=== PATIENT | male | born 1940 | race Caucasian/White ===

== ENCOUNTER 2017-05-20 13:03 | Inpatient (IN) | payer MEDICARE ==
[~2017-05-20] VITALS: Ht 172.7 cm; Wt 74.5 kg
[2017-05-20 13:48] LABS: BASOPHILS % (AUTO) 0.4 % (0.0-2.0); EOSINOPHILS % (AUTO) 4.4 % (1.0-6.0); HEMATOCRIT 36.6 % (41-53); HEMOGLOBIN 12.2 g/dL (13.5-17.5); LYMPHOCYTES # (AUTO) 1.2 K/uL (1.0-4.8); LYMPHOCYTES % (AUTO) 14.9 % (22.0-44.0); MEAN CORPUSCULAR HGB CONC 33.3 G/dL (31.0-37.0); MEAN CORPUSCULAR VOLUME 90 fL (80-100); MONOCYTES # (AUTO) 0.4 K/uL (0.1-1.0); MONOCYTES % (AUTO) 5.6 % (2.0-9.0); NEUTROPHILS # (AUTO) 5.8 K/uL (1.8-7.7); NEUTROPHILS % (AUTO) 74.7 % (40.0-70.0); PLATELET COUNT (AUTO) 157 K/uL (150-450); RED BLOOD CELL COUNT(AUTO) 4.06 MIL/uL (4.50-5.90); RED CELL DISTRIBUTION WIDTH 14.2 % (11.5-14.5)
[2017-05-20] MEDS ORDERED: CARB1TAB35 PO (13:49)
[2017-05-20] MEDS ORDERED: ASPI-989 PO (13:49)
[2017-05-20] MEDS ORDERED: CLOP75 PO (13:49)
[2017-05-20] MEDS ORDERED: TERA2 PO (13:49)
[2017-05-20] MEDS ORDERED: METF500T7 PO (13:49)
[2017-05-20] MEDS ORDERED: LISI-660 PO (13:49)
[2017-05-20] MEDS ORDERED: FINA5TAB41 PO (13:49)
[2017-05-20] MEDS ORDERED: FAMO20 PO (13:49)
[2017-05-20] MEDS ORDERED: THYR30 PO (13:49)
[2017-05-20] MEDS ORDERED: FLUT16H NASAL (13:49)
[2017-05-20] MEDS ORDERED: LATA2.5D2 OU (13:49)
[2017-05-20] MEDS ORDERED: ESOM20CA31 PO (13:49)
[2017-05-20] MEDS ORDERED: ATOR10TA84 PO (13:49)
[2017-05-20] MEDS ORDERED: DIPH50 PO (13:49)
[2017-05-20] MEDS ORDERED: OMEG-12 PO (13:49)
[2017-05-20] MEDS ORDERED: UBID100C10 PO (13:49)
[2017-05-20] MEDS ORDERED: CETI-193 PO (13:49)
[2017-05-20] MEDS ORDERED: CALC-789 PO (13:49)
[2017-05-20 14:03] LABS: ANION GAP 9 mmol/L (8-16); CALCIUM, TOTAL 8.9 mg/dL (8.8-10.5); CARBON DIOXIDE 27 mmol/L (22-29); CHLORIDE 102 mmol/L (98-107); CREATININE 1.14 mg/dL (0.60-1.30); GLOMERULAR FILTR. RATE CALC > 60 mL/min (>60); GLUCOSE,RANDOM 138 mg/dL (70-110); INR 1.1 (0.9-1.1); POTASSIUM 4.1 mmol/L (3.5-5.1); PROTHROMBIN TIME 11.7 SEC (9.4-11.6); SODIUM SERUM 138 mmol/L (136-145); UREA NITROGEN, BLOOD 17 mg/dL (7-18)
[2017-05-20 14:13] LABS: ALANINE AMINOTRANSFERASE 19 U/L (12-78); ALBUMIN 3.7 g/dL (3.4-5.0); ALKALINE PHOSPHATASE 52 U/L (46-116); ASPARTATE AMINOTRANSFERASE 15 U/L (15-37); BILIRUBIN,TOTAL 0.5 mg/dL (0.1-1.0); CREATINE KINASE, TOTAL 56 U/L (39-308); TOTAL PROTEIN, SERUM 6.7 g/dL (6.4-8.2)
[2017-05-20 14:30] LABS: APPEARANCE,URINE CLEAR (CLEAR); BILIRUBIN,URINE NEGATIVE (NEGATIVE); GLUCOSE, URINE (UA) NEGATIVE (NEGATIVE); KETONES,URINE NEGATIVE (NEGATIVE); LEUKOCYTE ESTERASE ,URINE NEGATIVE (NEGATIVE); NITRATE,URINE NEGATIVE (NEGATIVE); OCCULT BLOOD,URINE NEGATIVE (NEGATIVE); PH,URINE 6.5 (5.0-8.0); PROTEIN,URINE NEGATIVE (NEGATIVE); UROBILINOGEN,URINE 0.2 mg/dL (<=1.0)
[2017-05-20] MEDS ORDERED: ONDANSETRON HCL 4 MG/2 ML VIAL IVP PRN (15:15)
[2017-05-20] MEDS ORDERED: ACETAMINOPHEN 325 MG TABLET PO PRN (15:15)
[2017-05-20] MEDS ORDERED: 0.9% SODIUM CHLORIDE 10 ML SYRINGE IVP PRN (15:15)
[2017-05-20 16:27] VITALS: BP 174/95
[2017-05-20 18:54] VITALS: BP 145/80
[2017-05-20 20:14] VITALS: BP 147/75
[2017-05-20] MEDS ORDERED: ASPIRIN 325 MG TABLET PO ONE (20:30)
[2017-05-20 21:13] LABS: GLUCOSE,POINT OF CARE 126 MG/DL (70-110)
[2017-05-20 22:25] VITALS: BP 142/75
[2017-05-21] VITALS (7 sets, daily range): BP systolic 138–190; BP diastolic 73–95
[2017-05-21 05:39] LABS: BASOPHILS % (AUTO) 0.6 % (0.0-2.0); EOSINOPHILS % (AUTO) 4.8 % (1.0-6.0); HEMATOCRIT 35.2 % (41-53); HEMOGLOBIN 11.7 g/dL (13.5-17.5); LYMPHOCYTES % (AUTO) 23.7 % (22.0-44.0); MEAN CORPUSCULAR HEMOGLOBIN 30.3 pg (26.0-34.0); MEAN CORPUSCULAR HGB CONC 33.4 G/dL (31.0-37.0); MEAN CORPUSCULAR VOLUME 91 fL (80-100); MONOCYTES # (AUTO) 0.8 K/uL (0.1-1.0); MONOCYTES % (AUTO) 9.4 % (2.0-9.0); NEUTROPHILS # (AUTO) 5.2 K/uL (1.8-7.7); NEUTROPHILS % (AUTO) 61.5 % (40.0-70.0); PLATELET COUNT (AUTO) 156 K/uL (150-450); RED BLOOD CELL COUNT(AUTO) 3.87 MIL/uL (4.50-5.90); RED CELL DISTRIBUTION WIDTH 13.8 % (11.5-14.5)
[2017-05-21 05:45] LABS: HEMOGLOBIN A1C 6.6 % (4.5-6.2)
[2017-05-21 06:09] LABS: ALANINE AMINOTRANSFERASE 22 U/L (12-78); ALBUMIN 3.7 g/dL (3.4-5.0); ALKALINE PHOSPHATASE 50 U/L (46-116); ANION GAP 5 mmol/L (8-16); ASPARTATE AMINOTRANSFERASE 15 U/L (15-37); BILIRUBIN,TOTAL 0.5 mg/dL (0.1-1.0); CALCIUM, TOTAL 8.7 mg/dL (8.8-10.5); CARBON DIOXIDE 30 mmol/L (22-29); CHLORIDE 104 mmol/L (98-107); CHOL/HDL RATIO 2.5 (4.2-7.3); CHOLESTEROL 101 mg/dL (131-200); CREATININE 1.04 mg/dL (0.60-1.30); GLOMERULAR FILTR. RATE CALC > 60 mL/min (>60); GLUCOSE,RANDOM 104 mg/dL (70-110); HDL CHOLESTEROL 41 mg/dL (40-60); LDL CHOL (CALC.) 48 mg/dL (0-130); POTASSIUM 3.6 mmol/L (3.5-5.1); SODIUM SERUM 139 mmol/L (136-145); THYROID STIMULATING HORMONE 0.68 uIU/mL (0.36-3.74); TOTAL PROTEIN, SERUM 6.8 g/dL (6.4-8.2); TRIGLYCERIDES 61 mg/dL (15-150); UREA NITROGEN, BLOOD 18 mg/dL (7-18)
[2017-05-21 06:43] LABS: GLUCOSE,POINT OF CARE 110 MG/DL (70-110)
[2017-05-21] MEDS: ASPIRIN 325 MG TABLET PO SCH (10:18)
[2017-05-21] MEDS: CLOPIDOGREL BISULFATE 75 MG TABLET PO SCH (10:18)
[2017-05-21 11:48] LABS: GLUCOSE,POINT OF CARE 135 MG/DL (70-110)
[2017-05-21 13:07] LABS: FOLATE SERUM 10.8 ng/mL (5.4-)
[2017-05-21 17:28] LABS: GLUCOSE,POINT OF CARE 107 MG/DL (70-110)
[2017-05-21] MEDS ORDERED: HydrALAZINE HCL 20 MG/ML VIAL IVP PRN (22:30)
[2017-05-21] MEDS ORDERED: DEXTROSE 50%-WATER 25 GM/50 ML SYRINGE IVP PRN (22:30)
[2017-05-21] MEDS ORDERED: ACETAMINOPHEN 325 MG TABLET PO PRN (22:30)
[2017-05-21] MEDS ORDERED: LISINOPRIL 5 MG TABLET PO ONE (22:30)
[2017-05-21] MEDS ORDERED: INSULIN ASPART 100 UNITS/ML SQ PRN (23:15)
[2017-05-21] MEDS: ATORVASTATIN CALCIUM 10 MG TABLET PO SCH (23:59)
[2017-05-22] VITALS (7 sets, daily range): BP systolic 98–159; BP diastolic 51–87
[2017-05-22] MEDS: TERAZOSIN HCL 2 MG CAPSULE PO SCH ×2 (00:45→21:39)
[2017-05-22] MEDS: CARBIDOPA/LEVODOPA 25-100 MG TABLET PO SCH ×6 (00:45→21:39)
[2017-05-22] MEDS: LATANOPROST 0.005% 2.5 ML OPHTHALMIC SOLUTION OU SCH ×2 (00:46→21:40)
[2017-05-22] MEDS: THYROID 30 MG TABLET PO SCH (05:59)
[2017-05-22] MEDS: LISINOPRIL 5 MG TABLET PO SCH (09:26)
[2017-05-22] MEDS: ASPIRIN 325 MG TABLET PO SCH (09:26)
[2017-05-22] MEDS: CLOPIDOGREL BISULFATE 75 MG TABLET PO SCH (09:26)
[2017-05-22] MEDS: ESOMEPRAZOLE MAG TRIHYDRATE 20 MG CAPSULE PO SCH (09:27)
[2017-05-22] MEDS: UBIDECARENONE 100 MG CAPSULE PO SCH ×2 (09:27→21:39)
[2017-05-22] MEDS: ATORVASTATIN CALCIUM 10 MG TABLET PO SCH (21:39)
[2017-05-23 00:58] LABS: GLUCOMETER DEV NAME(LOC) 5S 2N; GLUCOSE,POINT OF CARE 122 MG/DL (70-110)
[2017-05-23 00:58] LABS: GLUCOMETER DEV NAME(LOC) 5S 2N; GLUCOSE,POINT OF CARE 149 MG/DL (70-110)
[2017-05-23 00:58] LABS: GLUCOMETER DEV NAME(LOC) 5S 2N; GLUCOSE,POINT OF CARE 156 MG/DL (70-110)
[2017-05-23] MEDS: CARBIDOPA/LEVODOPA 25-100 MG TABLET PO SCH ×4 (04:45→12:06)
[2017-05-23 04:58] VITALS: BP 154/70
[2017-05-23] MEDS: THYROID 30 MG TABLET PO SCH (06:22)
[2017-05-23 07:34] VITALS: BP 140/84
[2017-05-23] MEDS: LISINOPRIL 5 MG TABLET PO SCH (08:53)
[2017-05-23] MEDS: ESOMEPRAZOLE MAG TRIHYDRATE 20 MG CAPSULE PO SCH (08:53)
[2017-05-23] MEDS: CLOPIDOGREL BISULFATE 75 MG TABLET PO SCH (08:53)
[2017-05-23] MEDS: ASPIRIN 325 MG TABLET PO SCH (08:54)
[2017-05-23] MEDS: UBIDECARENONE 100 MG CAPSULE PO SCH (08:54)
[2017-05-23 11:18] VITALS: BP 146/88
[2017-05-23 12:34] LABS: GLUCOMETER DEV NAME(LOC) 5S 2N; GLUCOSE,POINT OF CARE 123 MG/DL (70-110)
[2017-05-24 05:53] LABS: GLUCOMETER DEV NAME(LOC) 5S 1L; GLUCOSE,POINT OF CARE 168 MG/DL (70-110)
[2017-05-24 05:54] LABS: GLUCOMETER DEV NAME(LOC) 5S 1L; GLUCOSE,POINT OF CARE 130 MG/DL (70-110)
[2017-05-24 05:54] LABS: GLUCOMETER DEV NAME(LOC) 5S 1L; GLUCOSE,POINT OF CARE 135 MG/DL (70-110)
== END 2017-05-23 14:45 | disposition home or self-care (01) | DRG 69 ==
LOC: EMS 13:05 → AHU 16:14 → 5N 05-21 19:27
PROVIDERS: ADMIT Internal Medicine; ATTEND Internal Medicine
DX: G45.9 Transient cerebral ischemic attack, unspecified (principal); G20 Parkinson's disease; E11.9 Type 2 diabetes mellitus without complications; R47.01 Aphasia; E03.9 Hypothyroidism, unspecified; E78.5 Hyperlipidemia, unspecified; I10 Essential (primary) hypertension; R47.1 Dysarthria and anarthria; N40.0 Benign prostatic hyperplasia without lower urinary tract symptoms; G25.0 Essential tremor; Z86.73 Personal history of transient ischemic attack (TIA), and cerebral infarction without residual deficits; Z82.49 Family history of ischemic heart disease and other diseases of the circulatory system; Z83.3 Family history of diabetes mellitus; Z79.84 Long term (current) use of oral hypoglycemic drugs
CPT/HCPCS: 70450; 70496; 70551; 82607; 82746; 82962; 83036; 84443; 93005; 93880; 95816; 99291; J0360

== ENCOUNTER 2017-07-10 14:13 | Emergency (ER) | payer MEDICARE ==
[~2017-07-10] VITALS: Ht 170.2 cm; Wt 75.0 kg
[~2017-07-10 14:13] MED LIST: ASPI-989 PO; ATOR10TA84 PO; CALC-789 PO; CARB1TAB35 PO; CETI-193 PO; CLOP75 PO; DIPH50 PO; ESOM20CA31 PO; FAMO20 PO; FINA5TAB41 PO; FLUT16H NASAL; LATA2.5D2 OU; LISI-660 PO; METF500T7 PO; OMEG-12 PO; TERA2 PO; THYR30 PO; UBID100C10 PO
[2017-07-10] MEDS ORDERED: ASPI1CPM6 PO (14:40)
[2017-07-10] MEDS ORDERED: THYR30 PO (14:40)
[2017-07-10 14:42] LABS: GLUCOSE,POINT OF CARE 103 MG/DL (70-110)
[2017-07-10 16:19] LABS: BASOPHILS % (AUTO) 0.7 % (0.0-2.0); EOSINOPHILS % (AUTO) 3.5 % (1.0-6.0); HEMOGLOBIN 11.9 g/dL (13.5-17.5); LYMPHOCYTES # (AUTO) 1.4 K/uL (1.0-4.8); LYMPHOCYTES % (AUTO) 19.4 % (22.0-44.0); MEAN CORPUSCULAR HEMOGLOBIN 29.8 pg (26.0-34.0); MEAN CORPUSCULAR HGB CONC 33.1 G/dL (31.0-37.0); MEAN CORPUSCULAR VOLUME 90 fL (80-100); MONOCYTES # (AUTO) 0.6 K/uL (0.1-1.0); MONOCYTES % (AUTO) 8.6 % (2.0-9.0); NEUTROPHILS # (AUTO) 4.9 K/uL (1.8-7.7); NEUTROPHILS % (AUTO) 67.8 % (40.0-70.0); PLATELET COUNT (AUTO) 149 K/uL (150-450); RED BLOOD CELL COUNT(AUTO) 3.99 MIL/uL (4.50-5.90); RED CELL DISTRIBUTION WIDTH 13.8 % (11.5-14.5)
[2017-07-10 16:30] LABS: ANION GAP 8 mmol/L (8-16); CARBON DIOXIDE 30 mmol/L (22-29); CHLORIDE 102 mmol/L (98-107); CREATININE 0.89 mg/dL (0.60-1.30); GLOMERULAR FILTR. RATE CALC > 60 mL/min (>60); GLUCOSE,RANDOM 108 mg/dL (70-110); POTASSIUM 4.3 mmol/L (3.5-5.1); SODIUM SERUM 140 mmol/L (136-145); UREA NITROGEN, BLOOD 21 mg/dL (7-18)
[2017-07-10 16:37] LABS: PROTHROMBIN TIME 10.7 SEC (9.4-11.6)
[2017-07-10 16:41] LABS: APPEARANCE,URINE CLEAR (CLEAR); BILIRUBIN,URINE NEGATIVE (NEGATIVE); GLUCOSE, URINE (UA) NEGATIVE (NEGATIVE); KETONES,URINE NEGATIVE (NEGATIVE); LEUKOCYTE ESTERASE ,URINE NEGATIVE (NEGATIVE); NITRATE,URINE NEGATIVE (NEGATIVE); OCCULT BLOOD,URINE NEGATIVE (NEGATIVE); PROTEIN,URINE NEGATIVE (NEGATIVE)
[2017-07-10 16:44] VITALS: BP 161/88
[2017-07-10 16:46] LABS: AMPHET/METH SCREEN,URINE NEGATIVE (NEGATIVE); BARBITURATE SCREEN, URINE NEGATIVE (NEGATIVE); BENZODIAZEPINES SCREEN,URINE NEGATIVE (NEGATIVE); CANNABINOID SCREEN,URINE NEGATIVE (NEGATIVE); COCAINE SCREEN,URINE NEGATIVE (NEGATIVE); METHADONE SCREEN, URINE NEGATIVE (NEGATIVE); OPIATE SCREEN,URINE NEGATIVE (NEGATIVE)
[2017-07-10 16:47] LABS: PHENCYCLIDINE SCREEN,URINE NEGATIVE (NEGATIVE)
[2017-07-10 16:56] LABS: ALANINE AMINOTRANSFERASE 22 U/L (12-78); ALBUMIN 3.9 g/dL (3.4-5.0); ALKALINE PHOSPHATASE 52 U/L (46-116); ASPARTATE AMINOTRANSFERASE 19 U/L (15-37); BILIRUBIN,TOTAL 0.4 mg/dL (0.1-1.0); CREATINE KINASE MB 1.1 ng/mL (0-5); CREATINE KINASE, TOTAL 77 U/L (39-308); TOTAL PROTEIN, SERUM 7.1 g/dL (6.4-8.2)
== END 2017-07-10 17:30 | disposition home or self-care (01) ==
LOC: EMS 14:14
DX: G45.9 Transient cerebral ischemic attack, unspecified (principal); G20 Parkinson's disease; I10 Essential (primary) hypertension; E11.9 Type 2 diabetes mellitus without complications; Z88.0 Allergy status to penicillin; Z79.02 Long term (current) use of antithrombotics/antiplatelets; Z79.82 Long term (current) use of aspirin
CPT/HCPCS: 70450; 82270; 82271; 82962; 93005; 99285

== ENCOUNTER 2017-10-27 09:48 | Inpatient (IN) | payer MEDICARE ==
[~2017-10-27] VITALS: Ht 170.2 cm; Wt 73.9 kg
[~2017-10-27 09:48] MED LIST changes: -ASPI-989 PO; +ASPI1CPM6 PO; -ATOR10TA84 PO; -CALC-789 PO; -CETI-193 PO; -CLOP75 PO; -DIPH50 PO; -ESOM20CA31 PO; -FINA5TAB41 PO; -FLUT16H NASAL; -LISI-660 PO; +MAGN100T PO; -THYR30 PO; -UBID100C10 PO; +VITA-382 PO
[2017-10-27 10:41] LABS: EOSINOPHILS % (AUTO) 2.6 % (1.0-6.0); HEMOGLOBIN 13.4 g/dL (13.5-17.5); LYMPHOCYTES # (AUTO) 0.9 K/uL (1.0-4.8); LYMPHOCYTES % (AUTO) 11.6 % (22.0-44.0); MEAN CORPUSCULAR HGB CONC 34.5 G/dL (31.0-37.0); MEAN CORPUSCULAR VOLUME 90 fL (80-100); MONOCYTES # (AUTO) 0.7 K/uL (0.1-1.0); NEUTROPHILS # (AUTO) 5.6 K/uL (1.8-7.7); NEUTROPHILS % (AUTO) 75.8 % (40.0-70.0); PLATELET COUNT (AUTO) 143 K/uL (150-450); RED BLOOD CELL COUNT(AUTO) 4.33 MIL/uL (4.50-5.90); RED CELL DISTRIBUTION WIDTH 13.8 % (11.5-14.5)
[2017-10-27] MEDS ORDERED: IOVERSOL 350 MG/ML 100 ML VIAL ONE (10:48)
[2017-10-27] MEDS ORDERED: SODIUM CHLORIDE 0.9% 100 ML ONE (10:48)
[2017-10-27 10:51] LABS: ANION GAP 8 mmol/L (8-16); CALCIUM, TOTAL 9.1 mg/dL (8.8-10.5); CARBON DIOXIDE 28 mmol/L (22-29); CHLORIDE 101 mmol/L (98-107); CREATININE 0.94 mg/dL (0.60-1.30); GLOMERULAR FILTR. RATE CALC > 60 mL/min (>60); GLUCOSE,RANDOM 128 mg/dL (70-110); POTASSIUM 4.2 mmol/L (3.5-5.1); SODIUM SERUM 137 mmol/L (136-145); UREA NITROGEN, BLOOD 18 mg/dL (7-18)
[2017-10-27 10:56] LABS: ALANINE AMINOTRANSFERASE 24 U/L (12-78); ALBUMIN 3.6 g/dL (3.4-5.0); ALKALINE PHOSPHATASE 50 U/L (46-116); ASPARTATE AMINOTRANSFERASE 16 U/L (15-37); BILIRUBIN,TOTAL 0.7 mg/dL (0.1-1.0); TOTAL PROTEIN, SERUM 6.9 g/dL (6.4-8.2)
[2017-10-27 12:00] LABS: APPEARANCE,URINE CLEAR (CLEAR); BILIRUBIN,URINE NEGATIVE (NEGATIVE); GLUCOSE, URINE (UA) NEGATIVE (NEGATIVE); KETONES,URINE TRACE mg/dL (NEGATIVE); LEUKOCYTE ESTERASE ,URINE NEGATIVE (NEGATIVE); NITRATE,URINE NEGATIVE (NEGATIVE); OCCULT BLOOD,URINE NEGATIVE (NEGATIVE); PH,URINE 5.5 (5.0-8.0); PROTEIN,URINE NEGATIVE (NEGATIVE); UROBILINOGEN,URINE 0.2 mg/dL (<=1.0)
[2017-10-27] MEDS ORDERED: ACETAMINOPHEN 325 MG TABLET PO PRN (13:00)
[2017-10-27] MEDS ORDERED: ONDANSETRON HCL 4 MG/2 ML VIAL IVP PRN (13:00)
[2017-10-27] MEDS ORDERED: ASPIRIN 325 MG TABLET PO ONE (13:15)
[2017-10-27 14:02] VITALS: BP 162/78
[2017-10-27 16:02] VITALS: BP 157/95
[2017-10-27 20:11] VITALS: BP 158/87
[2017-10-27] MEDS: LATANOPROST 0.005% 2.5 ML OPHTHALMIC SOLUTION OU SCH (20:57)
[2017-10-27] MEDS: ASPIRIN/DIPYRIDAMOLE ER 25/200 MG ER CAPSULE PO SCH (20:57)
[2017-10-27] MEDS: OMEGA-3/DHA/EPA/FISH OIL 1,000 MG CAPSULE PO SCH (20:57)
[2017-10-27] MEDS: CARBIDOPA/LEVODOPA 25-100 MG TABLET PO SCH (20:58)
[2017-10-27] MEDS: FAMOTIDINE 20 MG TABLET PO SCH (20:58)
[2017-10-27] MEDS: TERAZOSIN HCL 2 MG CAPSULE PO SCH (20:58)
[2017-10-28] VITALS (7 sets, daily range): BP systolic 143–169; BP diastolic 69–96
[2017-10-28] MEDS ORDERED: [UNRECOGNIZED DRUG - OTHER] PO SCH (09:00)
[2017-10-28] MEDS: OMEGA-3/DHA/EPA/FISH OIL 1,000 MG CAPSULE PO SCH ×2 (09:00→20:25)
[2017-10-28] MEDS: CARBIDOPA/LEVODOPA 25-100 MG TABLET PO SCH ×3 (09:46→20:25)
[2017-10-28] MEDS: ASPIRIN/DIPYRIDAMOLE ER 25/200 MG ER CAPSULE PO SCH ×2 (09:48→20:25)
[2017-10-28] MEDS: SODIUM CHLORIDE 0.9% 1,000 ML IV SCH (12:32)
[2017-10-28] MEDS: LATANOPROST 0.005% 2.5 ML OPHTHALMIC SOLUTION OU SCH (20:25)
[2017-10-28] MEDS: TERAZOSIN HCL 2 MG CAPSULE PO SCH (20:25)
[2017-10-28] MEDS: FAMOTIDINE 20 MG TABLET PO SCH (20:25)
[2017-10-28 22:28] LABS: GLUCOMETER DEV NAME(LOC) 5S 2Q; GLUCOSE,POINT OF CARE 118 MG/DL (70-110)
[2017-10-28 22:28] LABS: GLUCOMETER DEV NAME(LOC) 5S 2Q; GLUCOSE,POINT OF CARE 122 MG/DL (70-110)
[2017-10-28 22:53] LABS: GLUCOMETER DEV NAME(LOC) 5N 1P; GLUCOSE,POINT OF CARE 142 MG/DL (70-110)
[2017-10-29] MEDS: SODIUM CHLORIDE 0.9% 1,000 ML IV SCH ×2 (04:43→21:36)
[2017-10-29 05:29] VITALS: BP 168/97
[2017-10-29 07:41] VITALS: BP 170/92
[2017-10-29 08:14] LABS: GLUCOMETER DEV NAME(LOC) 5S 1M; GLUCOSE,POINT OF CARE 104 MG/DL (70-110)
[2017-10-29 08:14] LABS: GLUCOMETER DEV NAME(LOC) 5S 2Q; GLUCOSE,POINT OF CARE 113 MG/DL (70-110)
[2017-10-29] MEDS: OMEGA-3/DHA/EPA/FISH OIL 1,000 MG CAPSULE PO SCH ×2 (09:00→19:32)
[2017-10-29] MEDS: ASPIRIN/DIPYRIDAMOLE ER 25/200 MG ER CAPSULE PO SCH (09:54)
[2017-10-29] MEDS: CARBIDOPA/LEVODOPA 25-100 MG TABLET PO SCH ×3 (09:54→19:36)
[2017-10-29 11:33] VITALS: BP 155/88
[2017-10-29 14:56] LABS: BASOPHILS % (AUTO) 1.2 % (0.0-2.0); EOSINOPHILS % (AUTO) 0.3 % (1.0-6.0); HEMATOCRIT 38.5 % (41-53); HEMOGLOBIN 13.1 g/dL (13.5-17.5); LYMPHOCYTES # (AUTO) 1.3 K/uL (1.0-4.8); LYMPHOCYTES % (AUTO) 11.2 % (22.0-44.0); MEAN CORPUSCULAR HEMOGLOBIN 30.2 pg (26.0-34.0); MEAN CORPUSCULAR HGB CONC 34.1 G/dL (31.0-37.0); MEAN CORPUSCULAR VOLUME 89 fL (80-100); MONOCYTES # (AUTO) 1.2 K/uL (0.1-1.0); MONOCYTES % (AUTO) 9.9 % (2.0-9.0); NEUTROPHILS # (AUTO) 9.1 K/uL (1.8-7.7); NEUTROPHILS % (AUTO) 77.4 % (40.0-70.0); PLATELET COUNT (AUTO) 178 K/uL (150-450); RED BLOOD CELL COUNT(AUTO) 4.34 MIL/uL (4.50-5.90); RED CELL DISTRIBUTION WIDTH 13.7 % (11.5-14.5)
[2017-10-29 15:04] LABS: ANION GAP 9 mmol/L (8-16); CALCIUM, TOTAL 8.3 mg/dL (8.8-10.5); CARBON DIOXIDE 25 mmol/L (22-29); CHLORIDE 99 mmol/L (98-107); CREATININE 0.83 mg/dL (0.60-1.30); GLUCOSE,RANDOM 116 mg/dL (70-110); POTASSIUM 3.4 mmol/L (3.5-5.1); SODIUM SERUM 133 mmol/L (136-145); UREA NITROGEN, BLOOD 21 mg/dL (7-18)
[2017-10-29 15:09] LABS: ALANINE AMINOTRANSFERASE 12 U/L (12-78); ALBUMIN 3.2 g/dL (3.4-5.0); ALKALINE PHOSPHATASE 52 U/L (46-116); ASPARTATE AMINOTRANSFERASE 20 U/L (15-37); BILIRUBIN,TOTAL 0.7 mg/dL (0.1-1.0); TOTAL PROTEIN, SERUM 6.8 g/dL (6.4-8.2)
[2017-10-29 15:10] LABS: GLOMERULAR FILTR. RATE CALC > 60 mL/min (>60)
[2017-10-29 15:17] LABS: ABG A-A DIFF O2 32.5 mmHg (10-20.0); ABG BASE EXCESS 1.2 mmol/L (-2.0-3.0); ABG CARBOXYHEMOGLOBIN 2.9 % (0.0-1.5); ABG HCO3 25.6 mmol/L (22.0-26.0); ABG METHEMOGLOBIN 0.3 % (0.0-1.5); ABG OXYGEN CONTENT 17.2 mL/dL (15.0-23.0); ABG OXYGEN SATURATION 94.1 % (95.0-98.0); ABG OXYHEMOGLOBIN 91.1 % (94.0-100.0); ABG PCO2 38 mmHg (35-45); ABG PH 7.439 (7.35-7.450); ABG TOTAL HEMOGLOBIN 13.4 G/dL (12.0-18.0); PO2, ARTERIAL BG 71.5 mmHg (75.0-83.0); SOURCE, BLOOD GAS ARTERIAL
[2017-10-29 15:19] LABS: O2 DEVICE,BLOOD GAS ROOM AIR (ROOM AIR); SITE, BLOOD GAS LFT RADIAL
[2017-10-29 15:25] LABS: PLATELET MORPHOLOGY COMMENT LARGE PLTS PRESENT
[2017-10-29] MEDS ORDERED: LevETIRAcetam 500 MG TABLET PO ONE (15:30)
[2017-10-29] MEDS ORDERED: POTASSIUM CHLORIDE 20 MEQ ER TABLET PO PRN (16:00)
[2017-10-29] MEDS ORDERED: MAGNESIUM SULFATE 6 GM in DEXTROSE 5%-WATER 150 ML IV ONE (16:00)
[2017-10-29] MEDS: POTASSIUM CHL 10 MEQ/WATER 50 ML IV PRN ×3 (16:34→21:36)
[2017-10-29] MEDS ORDERED: CARBIDOPA/LEVODOPA 25-100 MG TABLET PO SCH (18:00)
[2017-10-29] MEDS: MetFORMIN HCL 500 MG ER TABLET PO SCH (18:00)
[2017-10-29] MEDS: FAMOTIDINE 20 MG TABLET PO SCH (19:33)
[2017-10-29] MEDS: TERAZOSIN HCL 2 MG CAPSULE PO SCH (19:36)
[2017-10-29] MEDS: LevETIRAcetam 500 MG TABLET PO SCH (19:37)
[2017-10-29] MEDS: LATANOPROST 0.005% 2.5 ML OPHTHALMIC SOLUTION OU SCH (19:37)
[2017-10-29 19:38] VITALS: BP 157/82
[2017-10-29 20:18] LABS: GLUCOMETER DEV NAME(LOC) 5S 1M; GLUCOSE,POINT OF CARE 130 MG/DL (70-110)
[2017-10-29 20:18] LABS: GLUCOMETER DEV NAME(LOC) 5S 1M; GLUCOSE,POINT OF CARE 111 MG/DL (70-110)
[2017-10-29 23:43] VITALS: BP 148/90
[2017-10-30 03:09] LABS: GLUCOMETER DEV NAME(LOC) 5S 1M; GLUCOSE,POINT OF CARE 113 MG/DL (70-110)
[2017-10-30 04:20] VITALS: BP 157/83
[2017-10-30 06:55] LABS: BASOPHILS % (AUTO) 0.5 % (0.0-2.0); EOSINOPHILS % (AUTO) 1.9 % (1.0-6.0); HEMATOCRIT 37.3 % (41-53); HEMOGLOBIN 13.2 g/dL (13.5-17.5); LYMPHOCYTES # (AUTO) 1.4 K/uL (1.0-4.8); MEAN CORPUSCULAR HEMOGLOBIN 31.4 pg (26.0-34.0); MEAN CORPUSCULAR HGB CONC 35.4 G/dL (31.0-37.0); MEAN CORPUSCULAR VOLUME 89 fL (80-100); MONOCYTES # (AUTO) 0.8 K/uL (0.1-1.0); MONOCYTES % (AUTO) 9.6 % (2.0-9.0); NEUTROPHILS # (AUTO) 6.2 K/uL (1.8-7.7); PLATELET COUNT (AUTO) 182 K/uL (150-450); RED BLOOD CELL COUNT(AUTO) 4.21 MIL/uL (4.50-5.90)
[2017-10-30 07:21] LABS: ALANINE AMINOTRANSFERASE 11 U/L (12-78); ALKALINE PHOSPHATASE 49 U/L (46-116); ANION GAP 9 mmol/L (8-16); ASPARTATE AMINOTRANSFERASE 21 U/L (15-37); BILIRUBIN,TOTAL 0.6 mg/dL (0.1-1.0); CARBON DIOXIDE 25 mmol/L (22-29); CHLORIDE 101 mmol/L (98-107); CREATININE 0.78 mg/dL (0.60-1.30); GLUCOSE,RANDOM 97 mg/dL (70-110); POTASSIUM 3.4 mmol/L (3.5-5.1); SODIUM SERUM 135 mmol/L (136-145); TOTAL PROTEIN, SERUM 6.4 g/dL (6.4-8.2); UREA NITROGEN, BLOOD 20 mg/dL (7-18)
[2017-10-30 07:30] LABS: GLOMERULAR FILTR. RATE CALC > 60 mL/min (>60)
[2017-10-30] MEDS: MetFORMIN HCL 500 MG ER TABLET PO SCH (08:00)
[2017-10-30 08:03] VITALS: BP 155/93
[2017-10-30] MEDS: ASPIRIN/DIPYRIDAMOLE ER 25/200 MG ER CAPSULE PO SCH (09:00)
[2017-10-30] MEDS: CARBIDOPA/LEVODOPA 25-100 MG TABLET PO SCH ×4 (09:00→20:25)
[2017-10-30] MEDS: LevETIRAcetam 500 MG TABLET PO SCH ×2 (09:00→20:25)
[2017-10-30] MEDS: OMEGA-3/DHA/EPA/FISH OIL 1,000 MG CAPSULE PO SCH ×2 (09:00→20:24)
[2017-10-30] MEDS: ASPIRIN 81 MG CHEWABLE TABLET PO SCH (09:00)
[2017-10-30] MEDS ORDERED: CLOPIDOGREL BISULFATE 75 MG TABLET PO SCH (09:00)
[2017-10-30 12:03] VITALS: BP 170/92
[2017-10-30] MEDS: INSULIN LISPRO 100 UNITS/ML SQ PRN ×2 (12:51→18:00)
[2017-10-30] MEDS: SODIUM CHLORIDE 0.9% 1,000 ML IV SCH (13:42)
[2017-10-30] MEDS: POTASSIUM CHL 10 MEQ/WATER 50 ML IV PRN ×3 (13:42→18:01)
[2017-10-30 14:11] LABS: GLUCOMETER DEV NAME(LOC) 5S 2Q; GLUCOSE,POINT OF CARE 98 MG/DL (70-110)
[2017-10-30 14:11] LABS: GLUCOMETER DEV NAME(LOC) 5S 1M; GLUCOSE,POINT OF CARE 90 MG/DL (70-110)
[2017-10-30] MEDS ORDERED: AmLODIPine BESYLATE 5 MG TABLET PO ONE (15:45)
[2017-10-30 16:22] VITALS: BP 171/90
[2017-10-30 19:54] VITALS: BP 156/87
[2017-10-30 20:05] LABS: GLUCOMETER DEV NAME(LOC) 5S 2Q; GLUCOSE,POINT OF CARE 99 MG/DL (70-110)
[2017-10-30] MEDS: LATANOPROST 0.005% 2.5 ML OPHTHALMIC SOLUTION OU SCH (20:24)
[2017-10-30] MEDS: FAMOTIDINE 20 MG TABLET PO SCH (20:25)
[2017-10-30] MEDS: TERAZOSIN HCL 2 MG CAPSULE PO SCH (20:25)
[2017-10-30 21:33] LABS: GLUCOMETER DEV NAME(LOC) 5S 1M; GLUCOSE,POINT OF CARE 95 MG/DL (70-110)
[2017-10-31] VITALS (7 sets, daily range): BP systolic 145–163; BP diastolic 77–91
[2017-10-31 06:09] LABS: BASOPHILS % (AUTO) 1.2 % (0.0-2.0); EOSINOPHILS % (AUTO) 2.8 % (1.0-6.0); HEMATOCRIT 36.2 % (41-53); HEMOGLOBIN 12.4 g/dL (13.5-17.5); LYMPHOCYTES # (AUTO) 1.4 K/uL (1.0-4.8); LYMPHOCYTES % (AUTO) 18.2 % (22.0-44.0); MEAN CORPUSCULAR HEMOGLOBIN 30.1 pg (26.0-34.0); MEAN CORPUSCULAR HGB CONC 34.2 G/dL (31.0-37.0); MEAN CORPUSCULAR VOLUME 88 fL (80-100); MONOCYTES # (AUTO) 0.8 K/uL (0.1-1.0); MONOCYTES % (AUTO) 10.9 % (2.0-9.0); NEUTROPHILS # (AUTO) 5.1 K/uL (1.8-7.7); NEUTROPHILS % (AUTO) 66.9 % (40.0-70.0); PLATELET COUNT (AUTO) 174 K/uL (150-450); RED BLOOD CELL COUNT(AUTO) 4.12 MIL/uL (4.50-5.90); RED CELL DISTRIBUTION WIDTH 13.5 % (11.5-14.5)
[2017-10-31 06:38] LABS: ALANINE AMINOTRANSFERASE 11 U/L (12-78); ALBUMIN 2.9 g/dL (3.4-5.0); ALKALINE PHOSPHATASE 47 U/L (46-116); ANION GAP 11 mmol/L (8-16); ASPARTATE AMINOTRANSFERASE 18 U/L (15-37); BILIRUBIN,TOTAL 0.5 mg/dL (0.1-1.0); CARBON DIOXIDE 25 mmol/L (22-29); CHLORIDE 103 mmol/L (98-107); CREATININE 0.74 mg/dL (0.60-1.30); GLUCOSE,RANDOM 92 mg/dL (70-110); POTASSIUM 3.7 mmol/L (3.5-5.1); SODIUM SERUM 139 mmol/L (136-145); TOTAL PROTEIN, SERUM 6.3 g/dL (6.4-8.2); UREA NITROGEN, BLOOD 21 mg/dL (7-18)
[2017-10-31 06:42] LABS: GLOMERULAR FILTR. RATE CALC > 60 mL/min (>60)
[2017-10-31] MEDS: ASPIRIN 81 MG CHEWABLE TABLET PO SCH (09:27)
[2017-10-31] MEDS: AmLODIPine BESYLATE 5 MG TABLET PO SCH (09:27)
[2017-10-31] MEDS: LevETIRAcetam 500 MG TABLET PO SCH ×2 (09:27→20:58)
[2017-10-31] MEDS: ASPIRIN/DIPYRIDAMOLE ER 25/200 MG ER CAPSULE PO SCH (09:27)
[2017-10-31] MEDS: OMEGA-3/DHA/EPA/FISH OIL 1,000 MG CAPSULE PO SCH ×2 (09:27→20:58)
[2017-10-31] MEDS: CARBIDOPA/LEVODOPA 25-100 MG TABLET PO SCH ×4 (09:27→20:58)
[2017-10-31] MEDS: INSULIN LISPRO 100 UNITS/ML SQ PRN (12:07)
[2017-10-31] MEDS ORDERED: MAGNESIUM SULFATE 4 GM/WATER 100 ML IV PRN (15:00)
[2017-10-31] MEDS ORDERED: MAGNESIUM SULFATE 2 GM/WATER 50 ML IV PRN (15:00)
[2017-10-31 16:02] LABS: GLUCOMETER DEV NAME(LOC) 5S 1M; GLUCOSE,POINT OF CARE 146 MG/DL (70-110)
[2017-10-31 16:02] LABS: GLUCOMETER DEV NAME(LOC) 5S 2Q; GLUCOSE,POINT OF CARE 94 MG/DL (70-110)
[2017-10-31] MEDS: FAMOTIDINE 20 MG TABLET PO SCH (20:58)
[2017-10-31] MEDS: LATANOPROST 0.005% 2.5 ML OPHTHALMIC SOLUTION OU SCH (20:59)
[2017-10-31] MEDS: TERAZOSIN HCL 2 MG CAPSULE PO SCH (20:59)
[2017-11-01 00:02] VITALS: BP 158/94
[2017-11-01 04:00] VITALS: BP 144/79
[2017-11-01 07:19] VITALS: BP 152/89
[2017-11-01] MEDS: AmLODIPine BESYLATE 5 MG TABLET PO SCH (08:44)
[2017-11-01] MEDS: ASPIRIN/DIPYRIDAMOLE ER 25/200 MG ER CAPSULE PO SCH (08:44)
[2017-11-01] MEDS: CARBIDOPA/LEVODOPA 25-100 MG TABLET PO SCH ×3 (08:44→16:08)
[2017-11-01] MEDS: OMEGA-3/DHA/EPA/FISH OIL 1,000 MG CAPSULE PO SCH (08:44)
[2017-11-01] MEDS: LevETIRAcetam 500 MG TABLET PO SCH (08:44)
[2017-11-01] MEDS: ASPIRIN 81 MG CHEWABLE TABLET PO SCH (08:44)
[2017-11-01 09:11] LABS: BASOPHILS % (AUTO) 0.2 % (0.0-2.0); EOSINOPHILS % (AUTO) 1.2 % (1.0-6.0); HEMATOCRIT 38.7 % (41-53); HEMOGLOBIN 13.5 g/dL (13.5-17.5); LYMPHOCYTES # (AUTO) 1.2 K/uL (1.0-4.8); LYMPHOCYTES % (AUTO) 14.3 % (22.0-44.0); MEAN CORPUSCULAR HEMOGLOBIN 30.6 pg (26.0-34.0); MEAN CORPUSCULAR HGB CONC 34.9 G/dL (31.0-37.0); MEAN CORPUSCULAR VOLUME 88 fL (80-100); MONOCYTES # (AUTO) 0.8 K/uL (0.1-1.0); MONOCYTES % (AUTO) 9.2 % (2.0-9.0); NEUTROPHILS # (AUTO) 6.5 K/uL (1.8-7.7); NEUTROPHILS % (AUTO) 75.1 % (40.0-70.0); PLATELET COUNT (AUTO) 183 K/uL (150-450); RED BLOOD CELL COUNT(AUTO) 4.42 MIL/uL (4.50-5.90); RED CELL DISTRIBUTION WIDTH 13.1 % (11.5-14.5)
[2017-11-01 09:28] LABS: ALANINE AMINOTRANSFERASE 9 U/L (12-78); ALBUMIN 3.3 g/dL (3.4-5.0); ALKALINE PHOSPHATASE 56 U/L (46-116); ANION GAP 10 mmol/L (8-16); ASPARTATE AMINOTRANSFERASE 23 U/L (15-37); BILIRUBIN,TOTAL 0.6 mg/dL (0.1-1.0); CALCIUM, TOTAL 8.4 mg/dL (8.8-10.5); CARBON DIOXIDE 26 mmol/L (22-29); CHLORIDE 102 mmol/L (98-107); CREATININE 0.71 mg/dL (0.60-1.30); GLOMERULAR FILTR. RATE CALC > 60 mL/min (>60); GLUCOSE,RANDOM 142 mg/dL (70-110); POTASSIUM 3.6 mmol/L (3.5-5.1); SODIUM SERUM 138 mmol/L (136-145); UREA NITROGEN, BLOOD 15 mg/dL (7-18)
[2017-11-01 11:44] VITALS: BP 153/87
[2017-11-01] MEDS: MAGNESIUM OXIDE 400 MG TABLET PO PRN ×2 (12:02→16:08)
[2017-11-01] MEDS: INSULIN LISPRO 100 UNITS/ML SQ PRN (12:15)
[2017-11-01 15:10] VITALS: BP 135/83
[2017-11-01] MEDS ORDERED: AMLO-511 PO (18:01)
[2017-11-01] MEDS ORDERED: ASPI81 PO (18:01)
[2017-11-01] MEDS ORDERED: LEVE500T53 PO (18:08)
[2017-11-01] MEDS ORDERED: INSU100V SQ (18:08)
[2017-11-01] MEDS ORDERED: MAGOX PO (18:10)
[2017-11-01] MEDS ORDERED: MAGN2PIG IV (18:13)
[2017-11-01] MEDS ORDERED: KCL10IV IV (18:14)
[2017-11-01] MEDS ORDERED: MAGN4PIG IV (18:14)
[2017-11-01] MEDS ORDERED: POTA20TA11 PO (18:16)
[2017-11-01 23:05] LABS: GLUCOMETER DEV NAME(LOC) 5S 1M; GLUCOSE,POINT OF CARE 135 MG/DL (70-110)
[2017-11-01 23:05] LABS: GLUCOMETER DEV NAME(LOC) 5S 1M; GLUCOSE,POINT OF CARE 121 MG/DL (70-110)
[2017-11-01 23:05] LABS: GLUCOMETER DEV NAME(LOC) 5S 1M; GLUCOSE,POINT OF CARE 111 MG/DL (70-110)
[2017-11-01 23:05] LABS: GLUCOMETER DEV NAME(LOC) 5S 1M; GLUCOSE,POINT OF CARE 116 MG/DL (70-110)
== END 2017-11-01 18:45 | DRG 947 ==
LOC: EMS 09:49 → 5S 13:03
PROVIDERS: ADMIT Internal Medicine; ATTEND Internal Medicine
PROC: 4A00X4Z Measurement of Central Nervous Electrical Activity, External Approach (ICD-10-PCS; principal; 2017-10-30)
DX: R53.1 Weakness (principal); G93.40 Encephalopathy, unspecified; E78.5 Hyperlipidemia, unspecified; E11.9 Type 2 diabetes mellitus without complications; I10 Essential (primary) hypertension; R53.83 Other fatigue; G20 Parkinson's disease; Z88.0 Allergy status to penicillin; Z79.82 Long term (current) use of aspirin; Z79.899 Other long term (current) drug therapy
CPT/HCPCS: 70450; 70496; 70551; 82805; 83735; 84132; 92526; 92610; 93005; 94660; 95816; 97112; 97116; 97161; 97167; 97530; 97535; 99291; J3475; J3480; J7030; J7050; J7060

== ENCOUNTER 2017-11-01 19:18 | Inpatient (IN) | payer MEDICARE ==
[~2017-11-01] VITALS: Ht 170.2 cm; Wt 67.1 kg
[~2017-11-01 19:18] MED LIST changes: +AMLO-511 PO; +ASPI81 PO; +INSU100V SQ; +KCL10IV IV; +LEVE500T53 PO; +MAGN2PIG IV; +MAGN4PIG IV; +MAGOX PO; +POTA20TA11 PO
[2017-11-01 19:30] VITALS: BP 156/98
[2017-11-01] MEDS ORDERED: ACETAMINOPHEN 325 MG TABLET PO PRN ×2 (20:30)
[2017-11-01] MEDS ORDERED: TEMAZEPAM 15 MG CAPSULE PO PRN (20:30)
[2017-11-01] MEDS ORDERED: MAGNESIUM SULFATE 2 GM/WATER 50 ML IV PRN (20:45)
[2017-11-01] MEDS ORDERED: POTASSIUM CHL 10 MEQ/WATER 50 ML IV PRN (20:45)
[2017-11-01] MEDS ORDERED: MAGNESIUM SULFATE 4 GM/WATER 100 ML IV PRN (20:45)
[2017-11-01] MEDS ORDERED: POTASSIUM CHLORIDE 20 MEQ ER TABLET PO PRN (20:45)
[2017-11-01] MEDS ORDERED: MAGNESIUM OXIDE 400 MG TABLET PO PRN (20:45)
[2017-11-01] MEDS: LATANOPROST 0.005% 2.5 ML OPHTHALMIC SOLUTION OU SCH ×2 (21:00→21:18)
[2017-11-01] MEDS: TERAZOSIN HCL 2 MG CAPSULE PO SCH ×3 (21:00→23:42)
[2017-11-01] MEDS: SENNA 187 MG TABLET PO SCH ×2 (21:00→21:17)
[2017-11-01] MEDS: LevETIRAcetam 500 MG TABLET PO SCH ×2 (21:00→21:18)
[2017-11-01] MEDS: OMEGA-3/DHA/EPA/FISH OIL 1,000 MG CAPSULE PO SCH ×2 (21:00→21:19)
[2017-11-01] MEDS: DOCUSATE SODIUM 100 MG CAPSULE PO SCH ×2 (21:00→21:17)
[2017-11-01] MEDS: FAMOTIDINE 20 MG TABLET PO SCH (21:17)
[2017-11-01] MEDS: CARBIDOPA/LEVODOPA 25-100 MG TABLET PO SCH (21:19)
[2017-11-01 21:38] LABS: GLUCOMETER DEV NAME(LOC) 2WR 2E; GLUCOSE,POINT OF CARE 120 MG/DL (70-110)
[2017-11-02] VITALS: BP 164/98
[2017-11-02 01:44] LABS: APPEARANCE,URINE CLEAR (CLEAR); BILIRUBIN,URINE NEGATIVE (NEGATIVE); GLUCOSE, URINE (UA) 100 mg/dL (NEGATIVE); KETONES,URINE 40 mg/dL (NEGATIVE); LEUKOCYTE ESTERASE ,URINE NEGATIVE (NEGATIVE); NITRATE,URINE NEGATIVE (NEGATIVE); OCCULT BLOOD,URINE NEGATIVE (NEGATIVE); PROTEIN,URINE TRACE (NEGATIVE)
[2017-11-02 02:05] LABS: BACTERIA,URINE None Seen /HPF (None Seen); RBC,URINE 0-2 /HPF (0-2); WBC,URINE 0-2 /HPF (0-5)
[2017-11-02 04:58] VITALS: BP 152/98
[2017-11-02 06:09] LABS: GLUCOMETER DEV NAME(LOC) 2WR 2E; GLUCOSE,POINT OF CARE 122 MG/DL (70-110)
[2017-11-02 06:37] LABS: BASOPHILS % (AUTO) 0.7 % (0.0-2.0); EOSINOPHILS % (AUTO) 1.5 % (1.0-6.0); HEMATOCRIT 37.6 % (41-53); LYMPHOCYTES # (AUTO) 1.5 K/uL (1.0-4.8); LYMPHOCYTES % (AUTO) 20.4 % (22.0-44.0); MEAN CORPUSCULAR HEMOGLOBIN 30.4 pg (26.0-34.0); MEAN CORPUSCULAR HGB CONC 34.6 G/dL (31.0-37.0); MEAN CORPUSCULAR VOLUME 88 fL (80-100); MONOCYTES # (AUTO) 0.6 K/uL (0.1-1.0); MONOCYTES % (AUTO) 8.9 % (2.0-9.0); NEUTROPHILS % (AUTO) 68.5 % (40.0-70.0); PLATELET COUNT (AUTO) 196 K/uL (150-450); RED BLOOD CELL COUNT(AUTO) 4.28 MIL/uL (4.50-5.90); RED CELL DISTRIBUTION WIDTH 13.7 % (11.5-14.5)
[2017-11-02 06:46] LABS: ALANINE AMINOTRANSFERASE 8 U/L (12-78); ALBUMIN 3.3 g/dL (3.4-5.0); ALKALINE PHOSPHATASE 54 U/L (46-116); ANION GAP 8 mmol/L (8-16); ASPARTATE AMINOTRANSFERASE 22 U/L (15-37); BILIRUBIN,TOTAL 0.6 mg/dL (0.1-1.0); CALCIUM, TOTAL 8.8 mg/dL (8.8-10.5); CARBON DIOXIDE 29 mmol/L (22-29); CHLORIDE 102 mmol/L (98-107); CREATININE 0.71 mg/dL (0.60-1.30); GLUCOSE,RANDOM 123 mg/dL (70-110); POTASSIUM 3.4 mmol/L (3.5-5.1); SODIUM SERUM 139 mmol/L (136-145); TOTAL PROTEIN, SERUM 6.9 g/dL (6.4-8.2); UREA NITROGEN, BLOOD 18 mg/dL (7-18)
[2017-11-02 06:56] LABS: GLOMERULAR FILTR. RATE CALC > 60 mL/min (>60)
[2017-11-02] MEDS ORDERED: DOCUSATE SODIUM 100 MG CAPSULE PO SCH ×2 (08:00→09:00)
[2017-11-02] MEDS ORDERED: SENNA 187 MG TABLET PO SCH (08:00)
[2017-11-02 08:51] VITALS: BP 160/89
[2017-11-02] MEDS: 0.9% SODIUM CHLORIDE 10 ML SYRINGE IVP SCH ×4 (08:52→23:22)
[2017-11-02] MEDS: LevETIRAcetam 500 MG TABLET PO SCH (08:52)
[2017-11-02] MEDS: ASPIRIN/DIPYRIDAMOLE ER 25/200 MG ER CAPSULE PO SCH (08:52)
[2017-11-02] MEDS: AmLODIPine BESYLATE 5 MG TABLET PO SCH (08:52)
[2017-11-02] MEDS: OMEGA-3/DHA/EPA/FISH OIL 1,000 MG CAPSULE PO SCH ×2 (08:53→20:39)
[2017-11-02] MEDS: CARBIDOPA/LEVODOPA 25-100 MG TABLET PO SCH ×4 (08:53→20:39)
[2017-11-02] MEDS ORDERED: POTASSIUM CHLORIDE 20 MEQ ER TABLET PO ONE (10:15)
[2017-11-02] MEDS ORDERED: POTASSIUM CHLORIDE 10% 40 MEQ/30 ML LIQUID UDCUP PO ONE (11:30)
[2017-11-02] MEDS: ASPIRIN 81 MG CHEWABLE TABLET PO SCH (11:53)
[2017-11-02] MEDS: MAGNESIUM OXIDE 400 MG TABLET PO SCH ×2 (11:54→20:39)
[2017-11-02 12:49] LABS: GLUCOMETER DEV NAME(LOC) 2WR 1B; GLUCOSE,POINT OF CARE 159 MG/DL (70-110)
[2017-11-02 15:14] VITALS: BP 146/90
[2017-11-02 18:05] LABS: GLUCOMETER DEV NAME(LOC) 2WR 1B; GLUCOSE,POINT OF CARE 111 MG/DL (70-110)
[2017-11-02] MEDS: SENNA 187 MG TABLET PO SCH (20:38)
[2017-11-02] MEDS: LATANOPROST 0.005% 2.5 ML OPHTHALMIC SOLUTION OU SCH (20:38)
[2017-11-02] MEDS: FAMOTIDINE 20 MG TABLET PO SCH (20:39)
[2017-11-02] MEDS: DOCUSATE SODIUM 250 MG CAPSULE PO SCH (20:39)
[2017-11-02] MEDS: LevETIRAcetam 250 MG TABLET PO SCH (20:39)
[2017-11-02] MEDS: QUEtiapine FUMARATE 25 MG TABLET PO SCH (20:40)
[2017-11-02 20:44] VITALS: BP 146/100
[2017-11-02] MEDS: INSULIN LISPRO 100 UNITS/ML SQ PRN (21:19)
[2017-11-02 21:23] LABS: GLUCOMETER DEV NAME(LOC) 2WR 2E; GLUCOSE,POINT OF CARE 145 MG/DL (70-110)
[2017-11-02 23:28] VITALS: BP 144/100
[2017-11-03 06:00] VITALS: BP 154/88
[2017-11-03 06:04] LABS: GLUCOMETER DEV NAME(LOC) 2WR 1B; GLUCOSE,POINT OF CARE 125 MG/DL (70-110)
[2017-11-03 06:51] LABS: ANION GAP 5 mmol/L (8-16); CALCIUM, TOTAL 8.9 mg/dL (8.8-10.5); CARBON DIOXIDE 31 mmol/L (22-29); CHLORIDE 102 mmol/L (98-107); CREATININE 0.81 mg/dL (0.60-1.30); GLUCOSE,RANDOM 144 mg/dL (70-110); POTASSIUM 3.2 mmol/L (3.5-5.1); SODIUM SERUM 138 mmol/L (136-145); UREA NITROGEN, BLOOD 20 mg/dL (7-18)
[2017-11-03 06:53] LABS: GLOMERULAR FILTR. RATE CALC > 60 mL/min (>60)
[2017-11-03 09:12] VITALS: BP 159/94
[2017-11-03] MEDS ORDERED: POTASSIUM CHLORIDE 10% 40 MEQ/30 ML LIQUID UDCUP PO ONE ×2 (09:30→16:00)
[2017-11-03] MEDS: OMEGA-3/DHA/EPA/FISH OIL 1,000 MG CAPSULE PO SCH (11:14)
[2017-11-03] MEDS: LevETIRAcetam 250 MG TABLET PO SCH ×2 (11:14→20:24)
[2017-11-03] MEDS: CARBIDOPA/LEVODOPA 25-100 MG TABLET PO SCH ×4 (11:14→20:23)
[2017-11-03] MEDS: AmLODIPine BESYLATE 5 MG TABLET PO SCH (11:15)
[2017-11-03] MEDS: DOCUSATE SODIUM 250 MG CAPSULE PO SCH ×2 (11:16→20:25)
[2017-11-03] MEDS: ASPIRIN 81 MG CHEWABLE TABLET PO SCH (11:16)
[2017-11-03] MEDS: ASPIRIN/DIPYRIDAMOLE ER 25/200 MG ER CAPSULE PO SCH (11:17)
[2017-11-03] MEDS ORDERED: POTASSIUM CHLORIDE 20 MEQ ER TABLET PO ONE ×2 (11:30→16:30)
[2017-11-03 12:24] LABS: GLUCOMETER DEV NAME(LOC) 2WR 2E; GLUCOSE,POINT OF CARE 171 MG/DL (70-110)
[2017-11-03] MEDS: 0.9% SODIUM CHLORIDE 10 ML SYRINGE IVP SCH ×2 (12:27→17:04)
[2017-11-03] MEDS: INSULIN LISPRO 100 UNITS/ML SQ PRN (13:36)
[2017-11-03 15:15] VITALS: BP 133/75
[2017-11-03] MEDS ORDERED: MAGNESIUM OXIDE 400 MG TABLET PO PRN (15:15)
[2017-11-03] MEDS ORDERED: MAGNESIUM SULFATE 2 GM/WATER 50 ML IV PRN (15:15)
[2017-11-03] MEDS ORDERED: MAGNESIUM SULFATE 4 GM/WATER 100 ML IV PRN (15:15)
[2017-11-03 15:38] LABS: ALBUMIN 3.3 g/dL (3.4-5.0)
[2017-11-03] MEDS: MAGNESIUM OXIDE 400 MG TABLET PO SCH ×2 (17:04→20:24)
[2017-11-03 17:34] LABS: GLUCOMETER DEV NAME(LOC) 2WR 2E; GLUCOSE,POINT OF CARE 83 MG/DL (70-110)
[2017-11-03 20:22] VITALS: BP 147/84
[2017-11-03] MEDS: LATANOPROST 0.005% 2.5 ML OPHTHALMIC SOLUTION OU SCH (20:23)
[2017-11-03] MEDS: FAMOTIDINE 20 MG TABLET PO SCH (20:24)
[2017-11-03] MEDS: QUEtiapine FUMARATE 25 MG TABLET PO SCH (20:24)
[2017-11-03] MEDS: SENNA 187 MG TABLET PO SCH (20:24)
[2017-11-03] MEDS: TERAZOSIN HCL 2 MG CAPSULE PO SCH (20:24)
[2017-11-03 21:07] LABS: GLUCOMETER DEV NAME(LOC) 2WR 1B; GLUCOSE,POINT OF CARE 130 MG/DL (70-110)
[2017-11-04] MEDS: 0.9% SODIUM CHLORIDE 10 ML SYRINGE IVP SCH ×2 (00:07→08:15)
[2017-11-04 00:15] VITALS: BP 146/80
[2017-11-04 06:03] LABS: GLUCOMETER DEV NAME(LOC) 2WR 1B; GLUCOSE,POINT OF CARE 121 MG/DL (70-110)
[2017-11-04 07:23] LABS: HEMOGLOBIN A1C 6.6 % (4.5-6.2)
[2017-11-04 07:32] LABS: ANION GAP 6 mmol/L (8-16); CALCIUM, TOTAL 8.9 mg/dL (8.8-10.5); CARBON DIOXIDE 31 mmol/L (22-29); CHLORIDE 106 mmol/L (98-107); CHOL/HDL RATIO 3.9 (4.2-7.3); CHOLESTEROL 151 mg/dL (131-200); GLUCOSE,RANDOM 121 mg/dL (70-110); HDL CHOLESTEROL 39 mg/dL (40-60); LDL CHOL (CALC.) 97 mg/dL (0-130); POTASSIUM 3.7 mmol/L (3.5-5.1); SODIUM SERUM 143 mmol/L (136-145); TRIGLYCERIDES 74 mg/dL (15-150); UREA NITROGEN, BLOOD 23 mg/dL (7-18)
[2017-11-04 07:33] LABS: GLOMERULAR FILTR. RATE CALC > 60 mL/min (>60)
[2017-11-04 07:35] VITALS: BP 147/75
[2017-11-04] MEDS: OMEGA-3/DHA/EPA/FISH OIL 1,000 MG CAPSULE PO SCH (08:04)
[2017-11-04] MEDS: MAGNESIUM HYDROXIDE SUSPENSION 30 ML UDCUP PO PRN (08:04)
[2017-11-04] MEDS: ASPIRIN/DIPYRIDAMOLE ER 25/200 MG ER CAPSULE PO SCH (08:04)
[2017-11-04] MEDS: CARBIDOPA/LEVODOPA 25-100 MG TABLET PO SCH ×4 (08:04→20:15)
[2017-11-04] MEDS: ASPIRIN 81 MG CHEWABLE TABLET PO SCH (08:04)
[2017-11-04] MEDS: DOCUSATE SODIUM 250 MG CAPSULE PO SCH ×2 (08:05→20:14)
[2017-11-04] MEDS: MAGNESIUM OXIDE 400 MG TABLET PO SCH ×3 (08:05→20:15)
[2017-11-04] MEDS: LevETIRAcetam 250 MG TABLET PO SCH ×2 (08:08→20:14)
[2017-11-04] MEDS: AmLODIPine BESYLATE 5 MG TABLET PO SCH (08:09)
[2017-11-04] MEDS: POTASSIUM CHLORIDE 20 MEQ ER TABLET PO SCH (08:12)
[2017-11-04] MEDS ORDERED: POTASSIUM CHLORIDE 10% 40 MEQ/30 ML LIQUID UDCUP PO SCH (09:00)
[2017-11-04 12:18] LABS: GLUCOMETER DEV NAME(LOC) 2WR 1B; GLUCOSE,POINT OF CARE 175 MG/DL (70-110)
[2017-11-04] MEDS: INSULIN LISPRO 100 UNITS/ML SQ PRN (13:25)
[2017-11-04 15:20] VITALS: BP 122/73
[2017-11-04 17:28] LABS: GLUCOMETER DEV NAME(LOC) 2WR 2E; GLUCOSE,POINT OF CARE 132 MG/DL (70-110)
[2017-11-04] MEDS: LATANOPROST 0.005% 2.5 ML OPHTHALMIC SOLUTION OU SCH (20:06)
[2017-11-04] MEDS: FAMOTIDINE 20 MG TABLET PO SCH (20:14)
[2017-11-04] MEDS: SENNA 187 MG TABLET PO SCH (20:15)
[2017-11-04] MEDS: TERAZOSIN HCL 2 MG CAPSULE PO SCH (20:15)
[2017-11-04] MEDS: QUEtiapine FUMARATE 25 MG TABLET PO SCH (20:15)
[2017-11-04 20:30] VITALS: BP 142/78
[2017-11-04 21:59] LABS: GLUCOMETER DEV NAME(LOC) 2WR 1B; GLUCOSE,POINT OF CARE 153 MG/DL (70-110)
[2017-11-05 00:57] VITALS: BP 149/89
[2017-11-05 07:00] LABS: GLUCOMETER DEV NAME(LOC) 2WR 1B; GLUCOSE,POINT OF CARE 117 MG/DL (70-110)
[2017-11-05 07:03] VITALS: BP 162/69
[2017-11-05 07:57] LABS: ANION GAP 5 mmol/L (8-16); CARBON DIOXIDE 33 mmol/L (22-29); CHLORIDE 104 mmol/L (98-107); CREATININE 0.85 mg/dL (0.60-1.30); GLUCOSE,RANDOM 126 mg/dL (70-110); POTASSIUM 3.8 mmol/L (3.5-5.1); SODIUM SERUM 142 mmol/L (136-145); UREA NITROGEN, BLOOD 21 mg/dL (7-18)
[2017-11-05 07:58] LABS: GLOMERULAR FILTR. RATE CALC > 60 mL/min (>60)
[2017-11-05] MEDS: LevETIRAcetam 250 MG TABLET PO SCH ×2 (10:35→20:49)
[2017-11-05] MEDS: MAGNESIUM HYDROXIDE SUSPENSION 30 ML UDCUP PO PRN (10:35)
[2017-11-05] MEDS: AmLODIPine BESYLATE 5 MG TABLET PO SCH (10:36)
[2017-11-05] MEDS: ASPIRIN/DIPYRIDAMOLE ER 25/200 MG ER CAPSULE PO SCH (10:37)
[2017-11-05] MEDS: CARBIDOPA/LEVODOPA 25-100 MG TABLET PO SCH ×4 (10:37→20:49)
[2017-11-05] MEDS: ASPIRIN 81 MG CHEWABLE TABLET PO SCH (10:38)
[2017-11-05] MEDS: DOCUSATE SODIUM 250 MG CAPSULE PO SCH ×2 (10:38→20:48)
[2017-11-05] MEDS: OMEGA-3/DHA/EPA/FISH OIL 1,000 MG CAPSULE PO SCH (10:38)
[2017-11-05] MEDS: MAGNESIUM OXIDE 400 MG TABLET PO SCH ×3 (10:39→20:48)
[2017-11-05] MEDS: POTASSIUM CHLORIDE 20 MEQ ER TABLET PO SCH (10:39)
[2017-11-05 10:52] VITALS: BP 153/91
[2017-11-05] MEDS ORDERED: QUEtiapine FUMARATE 25 MG TABLET PO PRN (12:00)
[2017-11-05 13:24] LABS: GLUCOMETER DEV NAME(LOC) 2WR 1B; GLUCOSE,POINT OF CARE 154 MG/DL (70-110)
[2017-11-05 15:15] VITALS: BP 143/78
[2017-11-05 17:33] LABS: GLUCOMETER DEV NAME(LOC) 2WR 2E; GLUCOSE,POINT OF CARE 118 MG/DL (70-110)
[2017-11-05] MEDS: TERAZOSIN HCL 2 MG CAPSULE PO SCH (20:48)
[2017-11-05] MEDS: FAMOTIDINE 20 MG TABLET PO SCH (20:48)
[2017-11-05] MEDS: SENNA 187 MG TABLET PO SCH (20:48)
[2017-11-05] MEDS: QUEtiapine FUMARATE 25 MG TABLET PO SCH (20:49)
[2017-11-05] MEDS: INSULIN LISPRO 100 UNITS/ML SQ PRN (20:57)
[2017-11-05] MEDS: LATANOPROST 0.005% 2.5 ML OPHTHALMIC SOLUTION OU SCH (21:04)
[2017-11-05 21:29] LABS: GLUCOMETER DEV NAME(LOC) 2WR 2E; GLUCOSE,POINT OF CARE 143 MG/DL (70-110)
[2017-11-05 23:53] VITALS: BP 150/86
[2017-11-06 06:29] LABS: GLUCOMETER DEV NAME(LOC) 2WR 1B; GLUCOSE,POINT OF CARE 114 MG/DL (70-110)
[2017-11-06 08:06] VITALS: BP 140/64
[2017-11-06] MEDS: OMEGA-3/DHA/EPA/FISH OIL 1,000 MG CAPSULE PO SCH (08:31)
[2017-11-06] MEDS: DOCUSATE SODIUM 250 MG CAPSULE PO SCH ×2 (08:31→20:18)
[2017-11-06] MEDS: ASPIRIN 81 MG CHEWABLE TABLET PO SCH (08:32)
[2017-11-06] MEDS: LevETIRAcetam 250 MG TABLET PO SCH ×2 (08:32→20:19)
[2017-11-06] MEDS: CARBIDOPA/LEVODOPA 25-100 MG TABLET PO SCH ×4 (08:32→20:18)
[2017-11-06] MEDS: ASPIRIN/DIPYRIDAMOLE ER 25/200 MG ER CAPSULE PO SCH (08:32)
[2017-11-06] MEDS: AmLODIPine BESYLATE 5 MG TABLET PO SCH (08:32)
[2017-11-06] MEDS: MAGNESIUM OXIDE 400 MG TABLET PO SCH ×3 (08:32→20:18)
[2017-11-06] MEDS: POTASSIUM CHLORIDE 20 MEQ ER TABLET PO SCH (08:33)
[2017-11-06] MEDS ORDERED: SENNA 187 MG TABLET PO PRN (10:30)
[2017-11-06 12:54] LABS: GLUCOMETER DEV NAME(LOC) 2WR 2E; GLUCOSE,POINT OF CARE 179 MG/DL (70-110)
[2017-11-06 16:16] VITALS: BP 137/76
[2017-11-06 17:33] LABS: GLUCOMETER DEV NAME(LOC) 2WR 2E; GLUCOSE,POINT OF CARE 122 MG/DL (70-110)
[2017-11-06 20:17] VITALS: BP 134/80
[2017-11-06] MEDS: FAMOTIDINE 20 MG TABLET PO SCH (20:18)
[2017-11-06] MEDS: TAMSULOSIN HCL 0.4 MG CAPSULE PO SCH (20:18)
[2017-11-06] MEDS: QUEtiapine FUMARATE 25 MG TABLET PO SCH (20:19)
[2017-11-06] MEDS: LATANOPROST 0.005% 2.5 ML OPHTHALMIC SOLUTION OU SCH (20:20)
[2017-11-06] MEDS: TERAZOSIN HCL 2 MG CAPSULE PO SCH (20:55)
[2017-11-06 21:29] LABS: GLUCOMETER DEV NAME(LOC) 2WR 1B; GLUCOSE,POINT OF CARE 170 MG/DL (70-110)
[2017-11-06] MEDS: INSULIN LISPRO 100 UNITS/ML SQ PRN (21:40)
[2017-11-07 04:23] VITALS: BP 139/69
[2017-11-07 06:00] LABS: GLUCOMETER DEV NAME(LOC) 2WR 1B; GLUCOSE,POINT OF CARE 125 MG/DL (70-110)
[2017-11-07 06:33] LABS: ANION GAP 6 mmol/L (8-16); CALCIUM, TOTAL 9.2 mg/dL (8.8-10.5); CARBON DIOXIDE 31 mmol/L (22-29); CHLORIDE 101 mmol/L (98-107); CREATININE 1.03 mg/dL (0.60-1.30); GLUCOSE,RANDOM 125 mg/dL (70-110); POTASSIUM 4.1 mmol/L (3.5-5.1); SODIUM SERUM 138 mmol/L (136-145); UREA NITROGEN, BLOOD 23 mg/dL (7-18)
[2017-11-07 06:45] LABS: GLOMERULAR FILTR. RATE CALC > 60 mL/min (>60)
[2017-11-07 09:06] VITALS: BP 106/47
[2017-11-07] MEDS: OMEGA-3/DHA/EPA/FISH OIL 1,000 MG CAPSULE PO SCH (09:09)
[2017-11-07] MEDS: ASPIRIN 81 MG CHEWABLE TABLET PO SCH (09:09)
[2017-11-07] MEDS: ASPIRIN/DIPYRIDAMOLE ER 25/200 MG ER CAPSULE PO SCH (09:09)
[2017-11-07] MEDS: CARBIDOPA/LEVODOPA 25-100 MG TABLET PO SCH ×4 (09:09→20:16)
[2017-11-07] MEDS: AmLODIPine BESYLATE 5 MG TABLET PO SCH (09:10)
[2017-11-07] MEDS: MAGNESIUM OXIDE 400 MG TABLET PO SCH ×2 (09:10→20:16)
[2017-11-07] MEDS: POTASSIUM CHLORIDE 20 MEQ ER TABLET PO SCH (09:10)
[2017-11-07] MEDS: LevETIRAcetam 250 MG TABLET PO SCH ×2 (09:10→20:16)
[2017-11-07] MEDS: DOCUSATE SODIUM 250 MG CAPSULE PO SCH ×2 (09:10→20:17)
[2017-11-07 12:25] LABS: GLUCOMETER DEV NAME(LOC) 2WR 2E; GLUCOSE,POINT OF CARE 154 MG/DL (70-110)
[2017-11-07] MEDS: INSULIN LISPRO 100 UNITS/ML SQ PRN ×2 (13:06→20:20)
[2017-11-07 15:40] VITALS: BP 130/73
[2017-11-07 19:53] LABS: GLUCOMETER DEV NAME(LOC) 2WR 1B; GLUCOSE,POINT OF CARE 171 MG/DL (70-110)
[2017-11-07] MEDS: FAMOTIDINE 20 MG TABLET PO SCH (20:16)
[2017-11-07] MEDS: LATANOPROST 0.005% 2.5 ML OPHTHALMIC SOLUTION OU SCH (20:16)
[2017-11-07] MEDS: TERAZOSIN HCL 2 MG CAPSULE PO SCH (20:17)
[2017-11-07] MEDS: TAMSULOSIN HCL 0.4 MG CAPSULE PO SCH (20:17)
[2017-11-07 20:21] VITALS: BP 116/61
[2017-11-07] MEDS: QUEtiapine FUMARATE 25 MG TABLET PO SCH (20:25)
[2017-11-07 20:43] LABS: GLUCOMETER DEV NAME(LOC) 2WR 2E; GLUCOSE,POINT OF CARE 163 MG/DL (70-110)
[2017-11-07 23:34] VITALS: BP 121/74
[2017-11-08 06:14] LABS: GLUCOMETER DEV NAME(LOC) 2WR 2E; GLUCOSE,POINT OF CARE 124 MG/DL (70-110)
[2017-11-08 09:00] VITALS: BP 138/57
[2017-11-08] MEDS: LevETIRAcetam 250 MG TABLET PO SCH ×3 (09:00→21:49)
[2017-11-08] MEDS: POTASSIUM CHLORIDE 20 MEQ ER TABLET PO SCH (09:13)
[2017-11-08] MEDS: ASPIRIN/DIPYRIDAMOLE ER 25/200 MG ER CAPSULE PO SCH (09:14)
[2017-11-08] MEDS: DOCUSATE SODIUM 250 MG CAPSULE PO SCH ×2 (09:14→21:49)
[2017-11-08] MEDS: CARBIDOPA/LEVODOPA 25-100 MG TABLET PO SCH ×4 (09:14→21:50)
[2017-11-08] MEDS: AmLODIPine BESYLATE 5 MG TABLET PO SCH (09:15)
[2017-11-08] MEDS: MAGNESIUM OXIDE 400 MG TABLET PO SCH ×2 (09:15→21:49)
[2017-11-08] MEDS: ASPIRIN 81 MG CHEWABLE TABLET PO SCH (09:15)
[2017-11-08] MEDS: OMEGA-3/DHA/EPA/FISH OIL 1,000 MG CAPSULE PO SCH (09:15)
[2017-11-08 14:34] LABS: GLUCOMETER DEV NAME(LOC) 2WR 2E; GLUCOSE,POINT OF CARE 162 MG/DL (70-110)
[2017-11-08 15:20] VITALS: BP 101/53
[2017-11-08 17:58] LABS: GLUCOMETER DEV NAME(LOC) 2WR 1B; GLUCOSE,POINT OF CARE 141 MG/DL (70-110)
[2017-11-08] MEDS: INSULIN LISPRO 100 UNITS/ML SQ PRN (18:50)
[2017-11-08 21:13] LABS: GLUCOMETER DEV NAME(LOC) 2WR 2E; GLUCOSE,POINT OF CARE 124 MG/DL (70-110)
[2017-11-08] MEDS: TERAZOSIN HCL 2 MG CAPSULE PO SCH (21:49)
[2017-11-08] MEDS: LATANOPROST 0.005% 2.5 ML OPHTHALMIC SOLUTION OU SCH (21:49)
[2017-11-08] MEDS: QUEtiapine FUMARATE 25 MG TABLET PO SCH (21:49)
[2017-11-08] MEDS: FAMOTIDINE 20 MG TABLET PO SCH (21:49)
[2017-11-08] MEDS: TAMSULOSIN HCL 0.4 MG CAPSULE PO SCH (21:49)
[2017-11-08 21:53] VITALS: BP 136/76
[2017-11-09] VITALS: BP 141/72
[2017-11-09 06:08] LABS: GLUCOMETER DEV NAME(LOC) 2WR 1B; GLUCOSE,POINT OF CARE 129 MG/DL (70-110)
[2017-11-09 09:00] VITALS: BP 144/79
[2017-11-09] MEDS: POTASSIUM CHLORIDE 20 MEQ ER TABLET PO SCH (09:11)
[2017-11-09] MEDS: OMEGA-3/DHA/EPA/FISH OIL 1,000 MG CAPSULE PO SCH (09:11)
[2017-11-09] MEDS: MAGNESIUM OXIDE 400 MG TABLET PO SCH ×2 (09:11→22:10)
[2017-11-09] MEDS: ASPIRIN/DIPYRIDAMOLE ER 25/200 MG ER CAPSULE PO SCH (09:11)
[2017-11-09] MEDS: POLYETHYLENE GLYCOL 3350 17 GM PACKET PO SCH ×3 (09:11→22:08)
[2017-11-09] MEDS: CARBIDOPA/LEVODOPA 25-100 MG TABLET PO SCH ×4 (09:11→22:07)
[2017-11-09] MEDS: ASPIRIN 81 MG CHEWABLE TABLET PO SCH (09:11)
[2017-11-09] MEDS: AmLODIPine BESYLATE 5 MG TABLET PO SCH (09:11)
[2017-11-09] MEDS: LevETIRAcetam 250 MG TABLET PO SCH ×2 (09:11→22:09)
[2017-11-09] MEDS: DOCUSATE SODIUM 250 MG CAPSULE PO SCH ×2 (09:11→22:07)
[2017-11-09 12:39] LABS: GLUCOMETER DEV NAME(LOC) 2WR 1B; GLUCOSE,POINT OF CARE 178 MG/DL (70-110)
[2017-11-09 16:52] VITALS: BP 126/76
[2017-11-09 18:04] LABS: GLUCOMETER DEV NAME(LOC) 2WR 2E; GLUCOSE,POINT OF CARE 122 MG/DL (70-110)
[2017-11-09] MEDS: LATANOPROST 0.005% 2.5 ML OPHTHALMIC SOLUTION OU SCH ×2 (21:00→22:07)
[2017-11-09] MEDS: TERAZOSIN HCL 2 MG CAPSULE PO SCH (22:07)
[2017-11-09] MEDS: TAMSULOSIN HCL 0.4 MG CAPSULE PO SCH (22:07)
[2017-11-09] MEDS: FAMOTIDINE 20 MG TABLET PO SCH (22:08)
[2017-11-09] MEDS: QUEtiapine FUMARATE 100 MG TABLET PO SCH (22:08)
[2017-11-09 22:49] LABS: GLUCOMETER DEV NAME(LOC) 2WR 2E; GLUCOSE,POINT OF CARE 130 MG/DL (70-110)
[2017-11-09 23:49] VITALS: BP 113/69
[2017-11-10 06:35] LABS: GLUCOMETER DEV NAME(LOC) 2WR 2E; GLUCOSE,POINT OF CARE 128 MG/DL (70-110)
[2017-11-10 06:45] LABS: EOSINOPHILS % (AUTO) 3.1 % (1.0-6.0); HEMATOCRIT 35.7 % (41-53); HEMOGLOBIN 12.2 g/dL (13.5-17.5); LYMPHOCYTES # (AUTO) 1.7 K/uL (1.0-4.8); LYMPHOCYTES % (AUTO) 25.1 % (22.0-44.0); MEAN CORPUSCULAR HEMOGLOBIN 30.4 pg (26.0-34.0); MEAN CORPUSCULAR HGB CONC 34.3 G/dL (31.0-37.0); MEAN CORPUSCULAR VOLUME 89 fL (80-100); MONOCYTES # (AUTO) 0.6 K/uL (0.1-1.0); MONOCYTES % (AUTO) 8.4 % (2.0-9.0); NEUTROPHILS # (AUTO) 4.3 K/uL (1.8-7.7); NEUTROPHILS % (AUTO) 62.4 % (40.0-70.0); PLATELET COUNT (AUTO) 187 K/uL (150-450); RED BLOOD CELL COUNT(AUTO) 4.03 MIL/uL (4.50-5.90); RED CELL DISTRIBUTION WIDTH 13.8 % (11.5-14.5)
[2017-11-10 07:00] LABS: ALANINE AMINOTRANSFERASE 18 U/L (12-78); ALBUMIN 3.2 g/dL (3.4-5.0); ALKALINE PHOSPHATASE 59 U/L (46-116); ANION GAP 8 mmol/L (8-16); ASPARTATE AMINOTRANSFERASE 17 U/L (15-37); BILIRUBIN,TOTAL 0.4 mg/dL (0.1-1.0); CALCIUM, TOTAL 9.1 mg/dL (8.8-10.5); CARBON DIOXIDE 29 mmol/L (22-29); CHLORIDE 100 mmol/L (98-107); CREATININE 0.94 mg/dL (0.60-1.30); GLOMERULAR FILTR. RATE CALC > 60 mL/min (>60); GLUCOSE,RANDOM 123 mg/dL (70-110); SODIUM SERUM 137 mmol/L (136-145); TOTAL PROTEIN, SERUM 6.6 g/dL (6.4-8.2); UREA NITROGEN, BLOOD 16 mg/dL (7-18)
[2017-11-10 09:00] VITALS: BP 124/69
[2017-11-10] MEDS: LevETIRAcetam 250 MG TABLET PO SCH ×2 (09:00→20:50)
[2017-11-10] MEDS: MAGNESIUM OXIDE 400 MG TABLET PO SCH ×2 (09:45→20:50)
[2017-11-10] MEDS: POLYETHYLENE GLYCOL 3350 17 GM PACKET PO SCH ×2 (09:45→20:51)
[2017-11-10] MEDS: OMEGA-3/DHA/EPA/FISH OIL 1,000 MG CAPSULE PO SCH (09:45)
[2017-11-10] MEDS: POTASSIUM CHLORIDE 20 MEQ ER TABLET PO SCH (09:45)
[2017-11-10] MEDS: CARBIDOPA/LEVODOPA 25-100 MG TABLET PO SCH ×4 (09:45→20:49)
[2017-11-10] MEDS: ASPIRIN/DIPYRIDAMOLE ER 25/200 MG ER CAPSULE PO SCH (09:45)
[2017-11-10] MEDS: DOCUSATE SODIUM 250 MG CAPSULE PO SCH ×2 (09:46→20:49)
[2017-11-10] MEDS: AmLODIPine BESYLATE 5 MG TABLET PO SCH (09:46)
[2017-11-10] MEDS: ASPIRIN 81 MG CHEWABLE TABLET PO SCH (09:46)
[2017-11-10 13:14] LABS: GLUCOMETER DEV NAME(LOC) 2WR 1B; GLUCOSE,POINT OF CARE 165 MG/DL (70-110)
[2017-11-10 15:44] VITALS: BP 121/67
[2017-11-10 18:04] LABS: GLUCOMETER DEV NAME(LOC) 2WR 1B; GLUCOSE,POINT OF CARE 168 MG/DL (70-110)
[2017-11-10] MEDS: INSULIN LISPRO 100 UNITS/ML SQ PRN ×2 (18:29→20:56)
[2017-11-10] MEDS: FAMOTIDINE 20 MG TABLET PO SCH (20:49)
[2017-11-10] MEDS: TERAZOSIN HCL 2 MG CAPSULE PO SCH (20:50)
[2017-11-10] MEDS: LATANOPROST 0.005% 2.5 ML OPHTHALMIC SOLUTION OU SCH (20:50)
[2017-11-10] MEDS: QUEtiapine FUMARATE 100 MG TABLET PO SCH (20:50)
[2017-11-10] MEDS: TAMSULOSIN HCL 0.4 MG CAPSULE PO SCH (20:50)
[2017-11-10 21:00] VITALS: BP 103/59
[2017-11-10 21:38] LABS: GLUCOMETER DEV NAME(LOC) 2WR 2E; GLUCOSE,POINT OF CARE 154 MG/DL (70-110)
[2017-11-11] VITALS: BP 141/80
[2017-11-11 06:39] LABS: GLUCOMETER DEV NAME(LOC) 2WR 1B; GLUCOSE,POINT OF CARE 118 MG/DL (70-110)
[2017-11-11 09:00] VITALS: BP 137/76
[2017-11-11] MEDS: LevETIRAcetam 250 MG TABLET PO SCH ×3 (09:00→22:29)
[2017-11-11] MEDS: DOCUSATE SODIUM 250 MG CAPSULE PO SCH ×2 (09:29→20:51)
[2017-11-11] MEDS: MAGNESIUM OXIDE 400 MG TABLET PO SCH ×2 (09:29→20:51)
[2017-11-11] MEDS: AmLODIPine BESYLATE 5 MG TABLET PO SCH (09:29)
[2017-11-11] MEDS: POTASSIUM CHLORIDE 20 MEQ ER TABLET PO SCH (09:29)
[2017-11-11] MEDS: POLYETHYLENE GLYCOL 3350 17 GM PACKET PO SCH ×2 (09:29→20:53)
[2017-11-11] MEDS: ASPIRIN 81 MG CHEWABLE TABLET PO SCH (09:30)
[2017-11-11] MEDS: ASPIRIN/DIPYRIDAMOLE ER 25/200 MG ER CAPSULE PO SCH (09:30)
[2017-11-11] MEDS: CARBIDOPA/LEVODOPA 25-100 MG TABLET PO SCH ×4 (09:30→20:53)
[2017-11-11] MEDS: OMEGA-3/DHA/EPA/FISH OIL 1,000 MG CAPSULE PO SCH (09:30)
[2017-11-11 12:43] LABS: GLUCOMETER DEV NAME(LOC) 2WR 1B; GLUCOSE,POINT OF CARE 134 MG/DL (70-110)
[2017-11-11 16:07] VITALS: BP 150/76
[2017-11-11 18:07] LABS: FOLATE SERUM 6.9 ng/mL (5.4-)
[2017-11-11] MEDS: INSULIN LISPRO 100 UNITS/ML SQ PRN (19:18)
[2017-11-11] MEDS: LATANOPROST 0.005% 2.5 ML OPHTHALMIC SOLUTION OU SCH (20:50)
[2017-11-11] MEDS: TERAZOSIN HCL 2 MG CAPSULE PO SCH (20:51)
[2017-11-11] MEDS: TAMSULOSIN HCL 0.4 MG CAPSULE PO SCH (20:51)
[2017-11-11] MEDS: FAMOTIDINE 20 MG TABLET PO SCH (20:53)
[2017-11-11] MEDS: QUEtiapine FUMARATE 100 MG TABLET PO SCH (20:53)
[2017-11-11 22:04] LABS: GLUCOMETER DEV NAME(LOC) 2WR 1B; GLUCOSE,POINT OF CARE 88 MG/DL (70-110)
[2017-11-11 22:04] LABS: GLUCOMETER DEV NAME(LOC) 2WR 1B; GLUCOSE,POINT OF CARE 185 MG/DL (70-110)
[2017-11-12] VITALS: BP 109/68
[2017-11-12] MEDS: HALOPERIDOL 5 MG TABLET PO PRN (01:55)
[2017-11-12 06:23] LABS: GLUCOMETER DEV NAME(LOC) 2WR 1B; GLUCOSE,POINT OF CARE 120 MG/DL (70-110)
[2017-11-12 08:55] VITALS: BP 143/78
[2017-11-12] MEDS: LevETIRAcetam 250 MG TABLET PO SCH (09:00)
[2017-11-12] MEDS: DOCUSATE SODIUM 250 MG CAPSULE PO SCH ×2 (09:12→20:58)
[2017-11-12] MEDS: ASPIRIN/DIPYRIDAMOLE ER 25/200 MG ER CAPSULE PO SCH (09:12)
[2017-11-12] MEDS: CARBIDOPA/LEVODOPA 25-100 MG TABLET PO SCH ×4 (09:12→20:59)
[2017-11-12] MEDS: POTASSIUM CHLORIDE 20 MEQ ER TABLET PO SCH (09:12)
[2017-11-12] MEDS: AmLODIPine BESYLATE 5 MG TABLET PO SCH (09:12)
[2017-11-12] MEDS: OMEGA-3/DHA/EPA/FISH OIL 1,000 MG CAPSULE PO SCH (09:12)
[2017-11-12] MEDS: MAGNESIUM OXIDE 400 MG TABLET PO SCH ×2 (09:12→20:58)
[2017-11-12] MEDS: POLYETHYLENE GLYCOL 3350 17 GM PACKET PO SCH ×2 (09:13→20:58)
[2017-11-12] MEDS: ASPIRIN 81 MG CHEWABLE TABLET PO SCH (09:13)
[2017-11-12 12:18] LABS: GLUCOMETER DEV NAME(LOC) 2WR 1B; GLUCOSE,POINT OF CARE 188 MG/DL (70-110)
[2017-11-12 17:25] VITALS: BP 111/64
[2017-11-12] MEDS: INSULIN LISPRO 100 UNITS/ML SQ PRN (17:54)
[2017-11-12] MEDS: TERAZOSIN HCL 2 MG CAPSULE PO SCH (20:58)
[2017-11-12] MEDS: FAMOTIDINE 20 MG TABLET PO SCH (20:58)
[2017-11-12] MEDS: LATANOPROST 0.005% 2.5 ML OPHTHALMIC SOLUTION OU SCH (20:58)
[2017-11-12] MEDS: TAMSULOSIN HCL 0.4 MG CAPSULE PO SCH (20:58)
[2017-11-12] MEDS: QUEtiapine FUMARATE 100 MG TABLET PO SCH (20:58)
[2017-11-12 22:49] LABS: GLUCOMETER DEV NAME(LOC) 2WR 2E; GLUCOSE,POINT OF CARE 129 MG/DL (70-110)
[2017-11-12 22:49] LABS: GLUCOMETER DEV NAME(LOC) 2WR 2E; GLUCOSE,POINT OF CARE 143 MG/DL (70-110)
[2017-11-12 23:51] VITALS: BP 151/75
[2017-11-13 06:14] LABS: GLUCOMETER DEV NAME(LOC) 2WR 2E; GLUCOSE,POINT OF CARE 119 MG/DL (70-110)
[2017-11-13 08:06] VITALS: BP 105/53
[2017-11-13] MEDS: OMEGA-3/DHA/EPA/FISH OIL 1,000 MG CAPSULE PO SCH (08:57)
[2017-11-13] MEDS: CARBIDOPA/LEVODOPA 25-100 MG TABLET PO SCH ×4 (08:58→20:59)
[2017-11-13] MEDS: POTASSIUM CHLORIDE 20 MEQ ER TABLET PO SCH (08:58)
[2017-11-13] MEDS: ASPIRIN 81 MG CHEWABLE TABLET PO SCH (08:58)
[2017-11-13] MEDS: ASPIRIN/DIPYRIDAMOLE ER 25/200 MG ER CAPSULE PO SCH (08:58)
[2017-11-13] MEDS: MAGNESIUM OXIDE 400 MG TABLET PO SCH ×2 (08:59→20:09)
[2017-11-13] MEDS: DOCUSATE SODIUM 250 MG CAPSULE PO SCH ×2 (08:59→20:11)
[2017-11-13] MEDS: AmLODIPine BESYLATE 5 MG TABLET PO SCH (08:59)
[2017-11-13] MEDS: POLYETHYLENE GLYCOL 3350 17 GM PACKET PO SCH ×2 (09:00→20:11)
[2017-11-13 12:39] LABS: GLUCOMETER DEV NAME(LOC) 2WR 1B; GLUCOSE,POINT OF CARE 125 MG/DL (70-110)
[2017-11-13 15:30] VITALS: BP 114/65
[2017-11-13] MEDS: MetFORMIN HCL 500 MG TABLET PO SCH (16:12)
[2017-11-13 17:58] LABS: GLUCOMETER DEV NAME(LOC) 2WR 2E; GLUCOSE,POINT OF CARE 122 MG/DL (70-110)
[2017-11-13 20:08] VITALS: BP 119/70
[2017-11-13] MEDS: TERAZOSIN HCL 2 MG CAPSULE PO SCH (20:10)
[2017-11-13] MEDS: FAMOTIDINE 20 MG TABLET PO SCH (20:10)
[2017-11-13] MEDS: TAMSULOSIN HCL 0.4 MG CAPSULE PO SCH (20:10)
[2017-11-13] MEDS: LATANOPROST 0.005% 2.5 ML OPHTHALMIC SOLUTION OU SCH (20:10)
[2017-11-13] MEDS: QUEtiapine FUMARATE 100 MG TABLET PO SCH (20:10)
[2017-11-13] MEDS: INSULIN LISPRO 100 UNITS/ML SQ PRN (21:29)
[2017-11-13 22:49] LABS: GLUCOMETER DEV NAME(LOC) 2WR 1B; GLUCOSE,POINT OF CARE 159 MG/DL (70-110)
[2017-11-13 23:57] VITALS: BP 145/73
[2017-11-14] MEDS: HALOPERIDOL 5 MG TABLET PO PRN (02:30)
[2017-11-14 06:08] LABS: GLUCOMETER DEV NAME(LOC) 2WR 2E; GLUCOSE,POINT OF CARE 135 MG/DL (70-110)
[2017-11-14 07:55] VITALS: BP 135/82
[2017-11-14] MEDS: MAGNESIUM OXIDE 400 MG TABLET PO SCH ×2 (08:30→20:49)
[2017-11-14] MEDS: CARBIDOPA/LEVODOPA 25-100 MG TABLET PO SCH ×4 (08:31→20:49)
[2017-11-14] MEDS: ASPIRIN/DIPYRIDAMOLE ER 25/200 MG ER CAPSULE PO SCH (08:31)
[2017-11-14] MEDS: MetFORMIN HCL 500 MG TABLET PO SCH ×2 (08:31→18:46)
[2017-11-14] MEDS: OMEGA-3/DHA/EPA/FISH OIL 1,000 MG CAPSULE PO SCH (08:31)
[2017-11-14] MEDS: ASPIRIN 81 MG CHEWABLE TABLET PO SCH (08:31)
[2017-11-14] MEDS: POTASSIUM CHLORIDE 20 MEQ ER TABLET PO SCH (08:32)
[2017-11-14] MEDS: AmLODIPine BESYLATE 5 MG TABLET PO SCH (08:32)
[2017-11-14] MEDS: DOCUSATE SODIUM 250 MG CAPSULE PO SCH ×2 (08:36→20:49)
[2017-11-14] MEDS: POLYETHYLENE GLYCOL 3350 17 GM PACKET PO SCH ×2 (08:36→20:49)
[2017-11-14] MEDS: INSULIN LISPRO 100 UNITS/ML SQ PRN (12:33)
[2017-11-14 12:39] LABS: GLUCOMETER DEV NAME(LOC) 2WR 2E; GLUCOSE,POINT OF CARE 142 MG/DL (70-110)
[2017-11-14 15:38] VITALS: BP 129/74
[2017-11-14 17:44] LABS: GLUCOMETER DEV NAME(LOC) 2WR 2E; GLUCOSE,POINT OF CARE 109 MG/DL (70-110)
[2017-11-14 20:43] VITALS: BP_SYST 107; BP_SYST 126; BP_DIAS 57; BP_DIAS 74
[2017-11-14] MEDS: LATANOPROST 0.005% 2.5 ML OPHTHALMIC SOLUTION OU SCH (20:49)
[2017-11-14] MEDS: TAMSULOSIN HCL 0.4 MG CAPSULE PO SCH (20:49)
[2017-11-14] MEDS: TERAZOSIN HCL 2 MG CAPSULE PO SCH (20:49)
[2017-11-14] MEDS: FAMOTIDINE 20 MG TABLET PO SCH (20:49)
[2017-11-14] MEDS: QUEtiapine FUMARATE 100 MG TABLET PO SCH (20:49)
[2017-11-14 22:08] LABS: GLUCOMETER DEV NAME(LOC) 2WR 1B; GLUCOSE,POINT OF CARE 132 MG/DL (70-110)
[2017-11-14 23:58] VITALS: BP 131/71
[2017-11-15 06:24] LABS: GLUCOMETER DEV NAME(LOC) 2WR 1B; GLUCOSE,POINT OF CARE 105 MG/DL (70-110)
[2017-11-15 07:35] VITALS: BP 136/80
[2017-11-15] MEDS: ASPIRIN/DIPYRIDAMOLE ER 25/200 MG ER CAPSULE PO SCH (10:25)
[2017-11-15] MEDS: DOCUSATE SODIUM 250 MG CAPSULE PO SCH ×2 (10:25→20:25)
[2017-11-15] MEDS: OMEGA-3/DHA/EPA/FISH OIL 1,000 MG CAPSULE PO SCH (10:25)
[2017-11-15] MEDS: CARBIDOPA/LEVODOPA 25-100 MG TABLET PO SCH ×4 (10:25→20:25)
[2017-11-15] MEDS: MAGNESIUM OXIDE 400 MG TABLET PO SCH ×2 (10:26→20:25)
[2017-11-15] MEDS: ASPIRIN 81 MG CHEWABLE TABLET PO SCH (10:26)
[2017-11-15] MEDS: AmLODIPine BESYLATE 5 MG TABLET PO SCH (10:26)
[2017-11-15] MEDS: POTASSIUM CHLORIDE 20 MEQ ER TABLET PO SCH (10:26)
[2017-11-15] MEDS: MetFORMIN HCL 500 MG TABLET PO SCH ×2 (10:26→16:32)
[2017-11-15] MEDS: POLYETHYLENE GLYCOL 3350 17 GM PACKET PO SCH ×2 (10:26→20:32)
[2017-11-15] MEDS: INSULIN LISPRO 100 UNITS/ML SQ PRN ×2 (13:17→18:59)
[2017-11-15 15:01] VITALS: BP 107/64
[2017-11-15 15:08] LABS: GLUCOMETER DEV NAME(LOC) 2WR 1B; GLUCOSE,POINT OF CARE 169 MG/DL (70-110)
[2017-11-15 16:09] LABS: GLUCOMETER DEV NAME(LOC) 2WR 2E; GLUCOSE,POINT OF CARE 114 MG/DL (70-110)
[2017-11-15 17:49] LABS: GLUCOMETER DEV NAME(LOC) 2WR 1B; GLUCOSE,POINT OF CARE 150 MG/DL (70-110)
[2017-11-15] MEDS: LATANOPROST 0.005% 2.5 ML OPHTHALMIC SOLUTION OU SCH (20:25)
[2017-11-15] MEDS: TAMSULOSIN HCL 0.4 MG CAPSULE PO SCH (20:25)
[2017-11-15] MEDS: QUEtiapine FUMARATE 100 MG TABLET PO SCH (20:25)
[2017-11-15] MEDS: FAMOTIDINE 20 MG TABLET PO SCH (20:25)
[2017-11-15 20:31] VITALS: BP 113/70
[2017-11-15] MEDS: TERAZOSIN HCL 2 MG CAPSULE PO SCH (20:32)
[2017-11-15 22:13] LABS: GLUCOMETER DEV NAME(LOC) 2WR 1B; GLUCOSE,POINT OF CARE 127 MG/DL (70-110)
[2017-11-16 05:47] VITALS: BP 113/67
[2017-11-16 06:19] LABS: GLUCOMETER DEV NAME(LOC) 2WR 2E; GLUCOSE,POINT OF CARE 114 MG/DL (70-110)
[2017-11-16 10:40] VITALS: BP 118/70
[2017-11-16 11:58] LABS: GLUCOMETER DEV NAME(LOC) 2WR 1B; GLUCOSE,POINT OF CARE 115 MG/DL (70-110)
[2017-11-16] MEDS: ASPIRIN/DIPYRIDAMOLE ER 25/200 MG ER CAPSULE PO SCH (12:04)
[2017-11-16] MEDS: OMEGA-3/DHA/EPA/FISH OIL 1,000 MG CAPSULE PO SCH (12:04)
[2017-11-16] MEDS: DOCUSATE SODIUM 250 MG CAPSULE PO SCH ×2 (12:04→20:21)
[2017-11-16] MEDS: POTASSIUM CHLORIDE 20 MEQ ER TABLET PO SCH (12:04)
[2017-11-16] MEDS: MetFORMIN HCL 500 MG TABLET PO SCH ×2 (12:04→17:37)
[2017-11-16] MEDS: MAGNESIUM OXIDE 400 MG TABLET PO SCH ×2 (12:04→20:21)
[2017-11-16] MEDS: ASPIRIN 81 MG CHEWABLE TABLET PO SCH (12:05)
[2017-11-16] MEDS: AmLODIPine BESYLATE 5 MG TABLET PO SCH (12:05)
[2017-11-16] MEDS: POLYETHYLENE GLYCOL 3350 17 GM PACKET PO SCH ×2 (12:05→20:20)
[2017-11-16] MEDS: CARBIDOPA/LEVODOPA 25-100 MG TABLET PO SCH ×3 (12:05→20:21)
[2017-11-16 15:59] VITALS: BP 145/74
[2017-11-16] MEDS ORDERED: HALOPERIDOL LACTATE 5 MG/ML VIAL IM PRN (17:45)
[2017-11-16 18:09] LABS: GLUCOMETER DEV NAME(LOC) 2WR 1B; GLUCOSE,POINT OF CARE 128 MG/DL (70-110)
[2017-11-16] MEDS: LATANOPROST 0.005% 2.5 ML OPHTHALMIC SOLUTION OU SCH (20:20)
[2017-11-16] MEDS: TERAZOSIN HCL 2 MG CAPSULE PO SCH (20:21)
[2017-11-16] MEDS: FAMOTIDINE 20 MG TABLET PO SCH (20:21)
[2017-11-16] MEDS: QUEtiapine FUMARATE 200 MG TABLET PO SCH (20:21)
[2017-11-16] MEDS: TAMSULOSIN HCL 0.4 MG CAPSULE PO SCH (20:21)
[2017-11-16] MEDS: INSULIN LISPRO 100 UNITS/ML SQ PRN (21:32)
[2017-11-17 00:03] VITALS: BP 138/81
[2017-11-17 03:14] LABS: GLUCOMETER DEV NAME(LOC) 2WR 2E; GLUCOSE,POINT OF CARE 153 MG/DL (70-110)
[2017-11-17 06:39] LABS: GLUCOMETER DEV NAME(LOC) 2WR 1B; GLUCOSE,POINT OF CARE 117 MG/DL (70-110)
[2017-11-17 08:01] VITALS: BP 122/62
[2017-11-17] MEDS: MAGNESIUM OXIDE 400 MG TABLET PO SCH ×2 (09:07→20:40)
[2017-11-17] MEDS: OMEGA-3/DHA/EPA/FISH OIL 1,000 MG CAPSULE PO SCH (09:07)
[2017-11-17] MEDS: POLYETHYLENE GLYCOL 3350 17 GM PACKET PO SCH ×2 (09:07→20:40)
[2017-11-17] MEDS: ASPIRIN 81 MG CHEWABLE TABLET PO SCH (09:07)
[2017-11-17] MEDS: ASPIRIN/DIPYRIDAMOLE ER 25/200 MG ER CAPSULE PO SCH (09:08)
[2017-11-17] MEDS: DOCUSATE SODIUM 250 MG CAPSULE PO SCH ×2 (09:08→20:40)
[2017-11-17] MEDS: POTASSIUM CHLORIDE 20 MEQ ER TABLET PO SCH (09:08)
[2017-11-17] MEDS: MetFORMIN HCL 500 MG TABLET PO SCH ×2 (09:08→16:35)
[2017-11-17] MEDS: CARBIDOPA/LEVODOPA 25-100 MG TABLET PO SCH ×4 (09:09→20:40)
[2017-11-17] MEDS: AmLODIPine BESYLATE 5 MG TABLET PO SCH (09:12)
[2017-11-17 12:54] LABS: GLUCOMETER DEV NAME(LOC) 2WR 2E; GLUCOSE,POINT OF CARE 195 MG/DL (70-110)
[2017-11-17] MEDS: DIVALPROEX SODIUM 250 MG ER TABLET PO SCH ×2 (13:11→21:00)
[2017-11-17] MEDS: INSULIN LISPRO 100 UNITS/ML SQ PRN (13:15)
[2017-11-17 16:32] VITALS: BP 107/67
[2017-11-17 18:29] LABS: GLUCOMETER DEV NAME(LOC) 2WR 2E; GLUCOSE,POINT OF CARE 103 MG/DL (70-110)
[2017-11-17 20:36] VITALS: BP 115/65
[2017-11-17] MEDS: QUEtiapine FUMARATE 200 MG TABLET PO SCH (20:40)
[2017-11-17] MEDS: TERAZOSIN HCL 2 MG CAPSULE PO SCH (20:40)
[2017-11-17] MEDS: FAMOTIDINE 20 MG TABLET PO SCH (20:40)
[2017-11-17] MEDS: TAMSULOSIN HCL 0.4 MG CAPSULE PO SCH (20:40)
[2017-11-17] MEDS: LATANOPROST 0.005% 2.5 ML OPHTHALMIC SOLUTION OU SCH (20:41)
[2017-11-17 22:14] LABS: GLUCOMETER DEV NAME(LOC) 2WR 2E; GLUCOSE,POINT OF CARE 137 MG/DL (70-110)
[2017-11-18] MEDS: DIVALPROEX SODIUM 250 MG ER TABLET PO SCH ×2 (00:33→10:59)
[2017-11-18 01:04] VITALS: BP 140/80
[2017-11-18] MEDS: HALOPERIDOL 5 MG TABLET PO PRN (01:57)
[2017-11-18 03:09] LABS: APPEARANCE,URINE CLEAR (CLEAR); BILIRUBIN,URINE NEGATIVE (NEGATIVE); GLUCOSE, URINE (UA) NEGATIVE (NEGATIVE); KETONES,URINE NEGATIVE (NEGATIVE); LEUKOCYTE ESTERASE ,URINE NEGATIVE (NEGATIVE); NITRATE,URINE NEGATIVE (NEGATIVE); OCCULT BLOOD,URINE NEGATIVE (NEGATIVE); PH,URINE 7.5 (5.0-8.0); PROTEIN,URINE NEGATIVE (NEGATIVE); UROBILINOGEN,URINE 0.2 mg/dL (<=1.0)
[2017-11-18 03:44] LABS: BACTERIA,URINE None Seen /HPF (None Seen); RBC,URINE None Seen /HPF (0-2); WBC,URINE None Seen /HPF (0-5)
[2017-11-18 06:29] LABS: GLUCOMETER DEV NAME(LOC) 2WR 1B; GLUCOSE,POINT OF CARE 125 MG/DL (70-110)
[2017-11-18 08:21] LABS: ANION GAP 5 mmol/L (8-16); CALCIUM, TOTAL 8.7 mg/dL (8.8-10.5); CARBON DIOXIDE 29 mmol/L (22-29); CHLORIDE 102 mmol/L (98-107); CREATININE 0.97 mg/dL (0.60-1.30); GLOMERULAR FILTR. RATE CALC > 60 mL/min (>60); GLUCOSE,RANDOM 113 mg/dL (70-110); SODIUM SERUM 136 mmol/L (136-145); UREA NITROGEN, BLOOD 19 mg/dL (7-18)
[2017-11-18 09:07] LABS: PROSTATE SPECIFIC ANTIGEN 1.66 ng/mL (0.00-4.00)
[2017-11-18 10:00] VITALS: BP 117/57
[2017-11-18] MEDS: OMEGA-3/DHA/EPA/FISH OIL 1,000 MG CAPSULE PO SCH (10:44)
[2017-11-18] MEDS: AmLODIPine BESYLATE 5 MG TABLET PO SCH (10:44)
[2017-11-18] MEDS: POLYETHYLENE GLYCOL 3350 17 GM PACKET PO SCH ×2 (10:44→20:02)
[2017-11-18] MEDS: MetFORMIN HCL 500 MG TABLET PO SCH ×2 (10:45→20:03)
[2017-11-18] MEDS: POTASSIUM CHLORIDE 20 MEQ ER TABLET PO SCH (10:45)
[2017-11-18] MEDS: DOCUSATE SODIUM 250 MG CAPSULE PO SCH ×2 (10:46→20:03)
[2017-11-18] MEDS: CARBIDOPA/LEVODOPA 25-100 MG TABLET PO SCH ×4 (10:46→20:04)
[2017-11-18] MEDS: ASPIRIN/DIPYRIDAMOLE ER 25/200 MG ER CAPSULE PO SCH (10:46)
[2017-11-18] MEDS: MAGNESIUM OXIDE 400 MG TABLET PO SCH ×2 (10:47→20:03)
[2017-11-18] MEDS: ASPIRIN 81 MG CHEWABLE TABLET PO SCH (10:50)
[2017-11-18] MEDS: INSULIN LISPRO 100 UNITS/ML SQ PRN (10:57)
[2017-11-18 12:23] LABS: GLUCOMETER DEV NAME(LOC) 2WR 2E; GLUCOSE,POINT OF CARE 154 MG/DL (70-110)
[2017-11-18 15:39] VITALS: BP 92/48
[2017-11-18 18:04] LABS: GLUCOMETER DEV NAME(LOC) 2WR 1B; GLUCOSE,POINT OF CARE 125 MG/DL (70-110)
[2017-11-18 19:50] VITALS: BP 109/69
[2017-11-18] MEDS: TAMSULOSIN HCL 0.4 MG CAPSULE PO SCH (20:03)
[2017-11-18] MEDS: QUEtiapine FUMARATE 200 MG TABLET PO SCH (20:03)
[2017-11-18] MEDS: FAMOTIDINE 20 MG TABLET PO SCH (20:04)
[2017-11-18] MEDS: LATANOPROST 0.005% 2.5 ML OPHTHALMIC SOLUTION OU SCH (20:05)
[2017-11-18] MEDS: TERAZOSIN HCL 2 MG CAPSULE PO SCH (20:06)
[2017-11-18 22:33] LABS: GLUCOMETER DEV NAME(LOC) 2WR 1B; GLUCOSE,POINT OF CARE 127 MG/DL (70-110)
[2017-11-18 23:00] VITALS: BP 152/70
[2017-11-19 00:23] VITALS: BP_SYST 152
[2017-11-19 05:59] LABS: GLUCOMETER DEV NAME(LOC) 2WR 1B; GLUCOSE,POINT OF CARE 105 MG/DL (70-110)
[2017-11-19 07:55] VITALS: BP 124/78
[2017-11-19] MEDS: POLYETHYLENE GLYCOL 3350 17 GM PACKET PO SCH ×2 (09:58→20:00)
[2017-11-19] MEDS: ASPIRIN 81 MG CHEWABLE TABLET PO SCH (09:59)
[2017-11-19] MEDS: MAGNESIUM OXIDE 400 MG TABLET PO SCH ×2 (09:59→20:05)
[2017-11-19] MEDS: OMEGA-3/DHA/EPA/FISH OIL 1,000 MG CAPSULE PO SCH (09:59)
[2017-11-19] MEDS: DOCUSATE SODIUM 250 MG CAPSULE PO SCH ×2 (09:59→20:00)
[2017-11-19] MEDS: AmLODIPine BESYLATE 5 MG TABLET PO SCH (09:59)
[2017-11-19] MEDS: POTASSIUM CHLORIDE 20 MEQ ER TABLET PO SCH (09:59)
[2017-11-19] MEDS: DIVALPROEX SODIUM 250 MG ER TABLET PO SCH ×2 (10:02→20:05)
[2017-11-19] MEDS: CARBIDOPA/LEVODOPA 25-100 MG TABLET PO SCH ×4 (10:02→20:05)
[2017-11-19] MEDS: MetFORMIN HCL 500 MG TABLET PO SCH ×2 (10:02→18:55)
[2017-11-19] MEDS: ASPIRIN/DIPYRIDAMOLE ER 25/200 MG ER CAPSULE PO SCH (10:04)
[2017-11-19 13:04] LABS: GLUCOMETER DEV NAME(LOC) 2WR 1B; GLUCOSE,POINT OF CARE 138 MG/DL (70-110)
[2017-11-19 15:05] VITALS: BP 100/64
[2017-11-19 18:29] LABS: GLUCOMETER DEV NAME(LOC) 2WR 1B; GLUCOSE,POINT OF CARE 126 MG/DL (70-110)
[2017-11-19 20:00] VITALS: BP 131/70
[2017-11-19] MEDS: TERAZOSIN HCL 2 MG CAPSULE PO SCH (20:05)
[2017-11-19] MEDS: QUEtiapine FUMARATE 200 MG TABLET PO SCH (20:05)
[2017-11-19] MEDS: TAMSULOSIN HCL 0.4 MG CAPSULE PO SCH (20:05)
[2017-11-19] MEDS: LATANOPROST 0.005% 2.5 ML OPHTHALMIC SOLUTION OU SCH (20:06)
[2017-11-19] MEDS: FAMOTIDINE 20 MG TABLET PO SCH (20:06)
[2017-11-19 20:33] LABS: GLUCOMETER DEV NAME(LOC) 2WR 1B; GLUCOSE,POINT OF CARE 134 MG/DL (70-110)
[2017-11-19 23:41] VITALS: BP 141/78
[2017-11-20 05:44] LABS: GLUCOMETER DEV NAME(LOC) 2WR 1B; GLUCOSE,POINT OF CARE 101 MG/DL (70-110)
[2017-11-20 06:45] LABS: BASOPHILS % (AUTO) 1.3 % (0.0-2.0); EOSINOPHILS % (AUTO) 4.4 % (1.0-6.0); HEMOGLOBIN 12.3 g/dL (13.5-17.5); LYMPHOCYTES # (AUTO) 2.1 K/uL (1.0-4.8); LYMPHOCYTES % (AUTO) 30.3 % (22.0-44.0); MEAN CORPUSCULAR HEMOGLOBIN 30.5 pg (26.0-34.0); MEAN CORPUSCULAR HGB CONC 34.1 G/dL (31.0-37.0); MEAN CORPUSCULAR VOLUME 90 fL (80-100); MONOCYTES # (AUTO) 0.5 K/uL (0.1-1.0); MONOCYTES % (AUTO) 7.4 % (2.0-9.0); NEUTROPHILS # (AUTO) 3.8 K/uL (1.8-7.7); NEUTROPHILS % (AUTO) 56.6 % (40.0-70.0); PLATELET COUNT (AUTO) 169 K/uL (150-450); RED BLOOD CELL COUNT(AUTO) 4.02 MIL/uL (4.50-5.90); RED CELL DISTRIBUTION WIDTH 14.1 % (11.5-14.5)
[2017-11-20 07:05] LABS: ALANINE AMINOTRANSFERASE 11 U/L (12-78); ALBUMIN 3.3 g/dL (3.4-5.0); ALKALINE PHOSPHATASE 51 U/L (46-116); ANION GAP 6 mmol/L (8-16); ASPARTATE AMINOTRANSFERASE 14 U/L (15-37); BILIRUBIN,TOTAL 0.5 mg/dL (0.1-1.0); CALCIUM, TOTAL 8.7 mg/dL (8.8-10.5); CARBON DIOXIDE 29 mmol/L (22-29); CHLORIDE 102 mmol/L (98-107); CREATININE 0.91 mg/dL (0.60-1.30); GLUCOSE,RANDOM 110 mg/dL (70-110); SODIUM SERUM 137 mmol/L (136-145); TOTAL PROTEIN, SERUM 6.8 g/dL (6.4-8.2); UREA NITROGEN, BLOOD 18 mg/dL (7-18); VALPROIC ACID 36 mcg/mL (50-100)
[2017-11-20 07:24] LABS: GLOMERULAR FILTR. RATE CALC > 60 mL/min (>60)
[2017-11-20 07:36] VITALS: BP 112/70
[2017-11-20] MEDS: OMEGA-3/DHA/EPA/FISH OIL 1,000 MG CAPSULE PO SCH (08:31)
[2017-11-20] MEDS: ASPIRIN 81 MG CHEWABLE TABLET PO SCH (08:31)
[2017-11-20] MEDS: AmLODIPine BESYLATE 5 MG TABLET PO SCH (08:31)
[2017-11-20] MEDS: ASPIRIN/DIPYRIDAMOLE ER 25/200 MG ER CAPSULE PO SCH (08:31)
[2017-11-20] MEDS: CARBIDOPA/LEVODOPA 25-100 MG TABLET PO SCH ×4 (08:31→20:35)
[2017-11-20] MEDS: POLYETHYLENE GLYCOL 3350 17 GM PACKET PO SCH ×2 (08:32→20:34)
[2017-11-20] MEDS: POTASSIUM CHLORIDE 20 MEQ ER TABLET PO SCH (08:32)
[2017-11-20] MEDS: DIVALPROEX SODIUM 250 MG ER TABLET PO SCH (08:32)
[2017-11-20] MEDS: MAGNESIUM OXIDE 400 MG TABLET PO SCH ×2 (08:32→20:35)
[2017-11-20] MEDS: DOCUSATE SODIUM 250 MG CAPSULE PO SCH ×2 (08:32→20:35)
[2017-11-20] MEDS: MetFORMIN HCL 500 MG TABLET PO SCH ×2 (08:32→17:20)
[2017-11-20 12:49] LABS: GLUCOMETER DEV NAME(LOC) 2WR 2E; GLUCOSE,POINT OF CARE 92 MG/DL (70-110)
[2017-11-20 15:46] VITALS: BP 135/68
[2017-11-20 18:04] LABS: GLUCOMETER DEV NAME(LOC) 2WR 1B; GLUCOSE,POINT OF CARE 107 MG/DL (70-110)
[2017-11-20] MEDS: TAMSULOSIN HCL 0.4 MG CAPSULE PO SCH (20:35)
[2017-11-20] MEDS: FAMOTIDINE 20 MG TABLET PO SCH (20:35)
[2017-11-20] MEDS: TERAZOSIN HCL 2 MG CAPSULE PO SCH (20:35)
[2017-11-20] MEDS: LATANOPROST 0.005% 2.5 ML OPHTHALMIC SOLUTION OU SCH (20:35)
[2017-11-20] MEDS: QUEtiapine FUMARATE 200 MG TABLET PO SCH (20:35)
[2017-11-20 20:40] VITALS: BP 120/70
[2017-11-20] MEDS ORDERED: DIVALPROEX SODIUM 500 MG ER TABLET PO SCH (21:00)
[2017-11-21 01:12] VITALS: BP 146/78
[2017-11-21 04:29] LABS: GLUCOMETER DEV NAME(LOC) 2WR 1B; GLUCOSE,POINT OF CARE 131 MG/DL (70-110)
[2017-11-21 06:24] LABS: GLUCOMETER DEV NAME(LOC) 2WR 1B; GLUCOSE,POINT OF CARE 108 MG/DL (70-110)
[2017-11-21 07:30] VITALS: BP 142/68
[2017-11-21] MEDS: DOCUSATE SODIUM 250 MG CAPSULE PO SCH ×2 (09:00→21:20)
[2017-11-21] MEDS: POLYETHYLENE GLYCOL 3350 17 GM PACKET PO SCH ×2 (09:00→21:22)
[2017-11-21] MEDS: POTASSIUM CHLORIDE 20 MEQ ER TABLET PO SCH (09:07)
[2017-11-21] MEDS: ASPIRIN/DIPYRIDAMOLE ER 25/200 MG ER CAPSULE PO SCH (09:07)
[2017-11-21] MEDS: ASPIRIN 81 MG CHEWABLE TABLET PO SCH (09:07)
[2017-11-21] MEDS: MetFORMIN HCL 500 MG TABLET PO SCH ×2 (09:07→17:15)
[2017-11-21] MEDS: AmLODIPine BESYLATE 5 MG TABLET PO SCH (09:07)
[2017-11-21] MEDS: MAGNESIUM OXIDE 400 MG TABLET PO SCH ×2 (09:07→21:20)
[2017-11-21] MEDS: CARBIDOPA/LEVODOPA 25-100 MG TABLET PO SCH ×4 (09:08→21:20)
[2017-11-21] MEDS: OMEGA-3/DHA/EPA/FISH OIL 1,000 MG CAPSULE PO SCH (09:08)
[2017-11-21 13:04] LABS: GLUCOMETER DEV NAME(LOC) 2WR 1B; GLUCOSE,POINT OF CARE 146 MG/DL (70-110)
[2017-11-21 15:15] VITALS: BP 131/85
[2017-11-21 19:13] LABS: GLUCOMETER DEV NAME(LOC) 2WR 2E; GLUCOSE,POINT OF CARE 101 MG/DL (70-110)
[2017-11-21 21:18] VITALS: BP 136/70
[2017-11-21] MEDS: FAMOTIDINE 20 MG TABLET PO SCH (21:20)
[2017-11-21] MEDS: TAMSULOSIN HCL 0.4 MG CAPSULE PO SCH (21:20)
[2017-11-21] MEDS: TERAZOSIN HCL 2 MG CAPSULE PO SCH (21:20)
[2017-11-21] MEDS: QUEtiapine FUMARATE 200 MG TABLET PO SCH (21:20)
[2017-11-21] MEDS: LATANOPROST 0.005% 2.5 ML OPHTHALMIC SOLUTION OU SCH (21:20)
[2017-11-21] MEDS: DIVALPROEX SODIUM 250 MG ER TABLET PO SCH (21:21)
[2017-11-21 22:41] LABS: GLUCOMETER DEV NAME(LOC) 2WR 1B; GLUCOSE,POINT OF CARE 112 MG/DL (70-110)
[2017-11-22 00:10] VITALS: BP 133/69
[2017-11-22 05:49] LABS: GLUCOMETER DEV NAME(LOC) 2WR 1B; GLUCOSE,POINT OF CARE 108 MG/DL (70-110)
[2017-11-22] MEDS: MetFORMIN HCL 500 MG TABLET PO SCH ×2 (07:30→16:42)
[2017-11-22 07:54] VITALS: BP 136/76
[2017-11-22] MEDS: AmLODIPine BESYLATE 5 MG TABLET PO SCH (09:00)
[2017-11-22] MEDS: ASPIRIN/DIPYRIDAMOLE ER 25/200 MG ER CAPSULE PO SCH (09:00)
[2017-11-22] MEDS: OMEGA-3/DHA/EPA/FISH OIL 1,000 MG CAPSULE PO SCH (09:00)
[2017-11-22] MEDS: ASPIRIN 81 MG CHEWABLE TABLET PO SCH (09:00)
[2017-11-22] MEDS: POTASSIUM CHLORIDE 20 MEQ ER TABLET PO SCH (09:00)
[2017-11-22] MEDS: POLYETHYLENE GLYCOL 3350 17 GM PACKET PO SCH ×2 (09:00→20:17)
[2017-11-22] MEDS: DOCUSATE SODIUM 250 MG CAPSULE PO SCH ×2 (09:00→20:16)
[2017-11-22] MEDS: DIVALPROEX SODIUM 250 MG ER TABLET PO SCH ×2 (09:00→20:16)
[2017-11-22] MEDS: CARBIDOPA/LEVODOPA 25-100 MG TABLET PO SCH ×4 (09:00→20:16)
[2017-11-22] MEDS: MAGNESIUM OXIDE 400 MG TABLET PO SCH ×2 (09:00→20:17)
[2017-11-22 13:33] LABS: GLUCOMETER DEV NAME(LOC) 2WR 1B; GLUCOSE,POINT OF CARE 85 MG/DL (70-110)
[2017-11-22 15:27] VITALS: BP 150/87
[2017-11-22 17:59] LABS: GLUCOMETER DEV NAME(LOC) 2WR 2E; GLUCOSE,POINT OF CARE 104 MG/DL (70-110)
[2017-11-22] MEDS: TAMSULOSIN HCL 0.4 MG CAPSULE PO SCH (20:16)
[2017-11-22] MEDS: LATANOPROST 0.005% 2.5 ML OPHTHALMIC SOLUTION OU SCH (20:16)
[2017-11-22] MEDS: FAMOTIDINE 20 MG TABLET PO SCH (20:16)
[2017-11-22] MEDS: QUEtiapine FUMARATE 100 MG TABLET PO SCH (20:17)
[2017-11-22] MEDS: TERAZOSIN HCL 2 MG CAPSULE PO SCH (20:17)
[2017-11-22 20:25] VITALS: BP 132/63
[2017-11-22] MEDS ORDERED: QUEtiapine FUMARATE 100 MG TABLET PO SCH (21:00)
[2017-11-22] MEDS ORDERED: QUEtiapine FUMARATE 200 MG TABLET PO SCH (21:00)
[2017-11-22 21:28] LABS: GLUCOMETER DEV NAME(LOC) 2WR 2E; GLUCOSE,POINT OF CARE 110 MG/DL (70-110)
[2017-11-23 06:00] VITALS: BP 147/86
[2017-11-23 06:24] LABS: GLUCOMETER DEV NAME(LOC) 2WR 2E; GLUCOSE,POINT OF CARE 84 MG/DL (70-110)
[2017-11-23 07:19] VITALS: BP 135/79
[2017-11-23] MEDS: OMEGA-3/DHA/EPA/FISH OIL 1,000 MG CAPSULE PO SCH (07:53)
[2017-11-23] MEDS: POLYETHYLENE GLYCOL 3350 17 GM PACKET PO SCH ×2 (07:53→20:42)
[2017-11-23] MEDS: POTASSIUM CHLORIDE 20 MEQ ER TABLET PO SCH (07:54)
[2017-11-23] MEDS: ASPIRIN/DIPYRIDAMOLE ER 25/200 MG ER CAPSULE PO SCH (07:54)
[2017-11-23] MEDS: CARBIDOPA/LEVODOPA 25-100 MG TABLET PO SCH ×4 (07:54→20:43)
[2017-11-23] MEDS: MetFORMIN HCL 500 MG TABLET PO SCH ×2 (07:55→17:47)
[2017-11-23] MEDS: DIVALPROEX SODIUM 250 MG ER TABLET PO SCH (07:55)
[2017-11-23] MEDS: ASPIRIN 81 MG CHEWABLE TABLET PO SCH (07:55)
[2017-11-23] MEDS: MAGNESIUM OXIDE 400 MG TABLET PO SCH ×2 (07:55→20:43)
[2017-11-23] MEDS: DOCUSATE SODIUM 250 MG CAPSULE PO SCH ×2 (07:55→20:43)
[2017-11-23] MEDS: AmLODIPine BESYLATE 5 MG TABLET PO SCH (07:55)
[2017-11-23 12:43] LABS: GLUCOMETER DEV NAME(LOC) 2WR 2E; GLUCOSE,POINT OF CARE 149 MG/DL (70-110)
[2017-11-23] MEDS: INSULIN LISPRO 100 UNITS/ML SQ PRN (12:57)
[2017-11-23 15:24] VITALS: BP 98/59
[2017-11-23 20:14] LABS: GLUCOMETER DEV NAME(LOC) 2WR 1B; GLUCOSE,POINT OF CARE 108 MG/DL (70-110)
[2017-11-23] MEDS: LATANOPROST 0.005% 2.5 ML OPHTHALMIC SOLUTION OU SCH (20:42)
[2017-11-23] MEDS: QUEtiapine FUMARATE 100 MG TABLET PO SCH (20:43)
[2017-11-23] MEDS: FAMOTIDINE 20 MG TABLET PO SCH (20:43)
[2017-11-23] MEDS: TERAZOSIN HCL 2 MG CAPSULE PO SCH (20:43)
[2017-11-23] MEDS: TAMSULOSIN HCL 0.4 MG CAPSULE PO SCH (20:43)
[2017-11-23 20:44] VITALS: BP 142/68
[2017-11-23 21:49] LABS: GLUCOMETER DEV NAME(LOC) 2WR 1B; GLUCOSE,POINT OF CARE 120 MG/DL (70-110)
[2017-11-24 01:50] VITALS: BP 141/76
[2017-11-24 05:58] LABS: GLUCOMETER DEV NAME(LOC) 2WR 2E; GLUCOSE,POINT OF CARE 94 MG/DL (70-110)
[2017-11-24 07:56] VITALS: BP 132/79
[2017-11-24] MEDS: DOCUSATE SODIUM 250 MG CAPSULE PO SCH ×3 (09:00→20:51)
[2017-11-24] MEDS: MAGNESIUM OXIDE 400 MG TABLET PO SCH ×2 (09:05→20:51)
[2017-11-24] MEDS: POLYETHYLENE GLYCOL 3350 17 GM PACKET PO SCH ×2 (09:05→20:52)
[2017-11-24] MEDS: ASPIRIN 81 MG CHEWABLE TABLET PO SCH (09:06)
[2017-11-24] MEDS: AmLODIPine BESYLATE 5 MG TABLET PO SCH (09:06)
[2017-11-24] MEDS: DIVALPROEX SODIUM 250 MG ER TABLET PO SCH (09:07)
[2017-11-24] MEDS: OMEGA-3/DHA/EPA/FISH OIL 1,000 MG CAPSULE PO SCH (09:07)
[2017-11-24] MEDS: ASPIRIN/DIPYRIDAMOLE ER 25/200 MG ER CAPSULE PO SCH (09:07)
[2017-11-24] MEDS: CARBIDOPA/LEVODOPA 25-100 MG TABLET PO SCH ×4 (09:07→20:52)
[2017-11-24] MEDS: MetFORMIN HCL 500 MG TABLET PO SCH ×2 (09:07→17:56)
[2017-11-24] MEDS: POTASSIUM CHLORIDE 20 MEQ ER TABLET PO SCH (09:07)
[2017-11-24 12:34] LABS: GLUCOMETER DEV NAME(LOC) 2WR 1B; GLUCOSE,POINT OF CARE 129 MG/DL (70-110)
[2017-11-24 15:31] VITALS: BP 98/59
[2017-11-24] MEDS: INSULIN LISPRO 100 UNITS/ML SQ PRN (17:59)
[2017-11-24 18:14] LABS: GLUCOMETER DEV NAME(LOC) 2WR 2E; GLUCOSE,POINT OF CARE 155 MG/DL (70-110)
[2017-11-24] MEDS: FAMOTIDINE 20 MG TABLET PO SCH (20:51)
[2017-11-24] MEDS: TAMSULOSIN HCL 0.4 MG CAPSULE PO SCH (20:51)
[2017-11-24] MEDS: LATANOPROST 0.005% 2.5 ML OPHTHALMIC SOLUTION OU SCH (20:52)
[2017-11-24] MEDS: TERAZOSIN HCL 2 MG CAPSULE PO SCH (20:52)
[2017-11-24] MEDS: QUEtiapine FUMARATE 100 MG TABLET PO SCH (20:52)
[2017-11-24 22:14] LABS: GLUCOMETER DEV NAME(LOC) 2WR 1B; GLUCOSE,POINT OF CARE 88 MG/DL (70-110)
[2017-11-25 00:01] VITALS: BP 152/80
[2017-11-25 06:43] LABS: GLUCOMETER DEV NAME(LOC) 2WR 2E; GLUCOSE,POINT OF CARE 97 MG/DL (70-110)
[2017-11-25 08:00] VITALS: BP 129/72
[2017-11-25] MEDS: DOCUSATE SODIUM 250 MG CAPSULE PO SCH ×2 (08:47→21:00)
[2017-11-25] MEDS: POLYETHYLENE GLYCOL 3350 17 GM PACKET PO SCH ×2 (08:49→21:00)
[2017-11-25] MEDS: ASPIRIN 81 MG CHEWABLE TABLET PO SCH (10:44)
[2017-11-25] MEDS: MetFORMIN HCL 500 MG TABLET PO SCH ×2 (10:44→16:34)
[2017-11-25] MEDS: DIVALPROEX SODIUM 250 MG ER TABLET PO SCH (10:44)
[2017-11-25] MEDS: ASPIRIN/DIPYRIDAMOLE ER 25/200 MG ER CAPSULE PO SCH (10:45)
[2017-11-25] MEDS: MAGNESIUM OXIDE 400 MG TABLET PO SCH ×2 (10:45→20:26)
[2017-11-25] MEDS: POTASSIUM CHLORIDE 20 MEQ ER TABLET PO SCH (10:45)
[2017-11-25] MEDS: CARBIDOPA/LEVODOPA 25-100 MG TABLET PO SCH ×4 (10:45→20:26)
[2017-11-25] MEDS: AmLODIPine BESYLATE 5 MG TABLET PO SCH (10:45)
[2017-11-25] MEDS: OMEGA-3/DHA/EPA/FISH OIL 1,000 MG CAPSULE PO SCH (10:45)
[2017-11-25 12:39] LABS: GLUCOMETER DEV NAME(LOC) 2WR 2E; GLUCOSE,POINT OF CARE 143 MG/DL (70-110)
[2017-11-25 15:49] VITALS: BP 109/58
[2017-11-25 18:18] LABS: GLUCOMETER DEV NAME(LOC) 2WR 2E; GLUCOSE,POINT OF CARE 111 MG/DL (70-110)
[2017-11-25] MEDS: TERAZOSIN HCL 2 MG CAPSULE PO SCH (20:26)
[2017-11-25] MEDS: LATANOPROST 0.005% 2.5 ML OPHTHALMIC SOLUTION OU SCH (20:26)
[2017-11-25] MEDS: TAMSULOSIN HCL 0.4 MG CAPSULE PO SCH (20:26)
[2017-11-25] MEDS: FAMOTIDINE 20 MG TABLET PO SCH (20:26)
[2017-11-25] MEDS: QUEtiapine FUMARATE 100 MG TABLET PO SCH (20:26)
[2017-11-25] MEDS ORDERED: QUEtiapine FUMARATE 100 MG TABLET PO SCH (21:00)
[2017-11-25 21:53] LABS: GLUCOMETER DEV NAME(LOC) 2WR 2E; GLUCOSE,POINT OF CARE 137 MG/DL (70-110)
[2017-11-25 23:42] VITALS: BP 139/77
[2017-11-26 05:28] LABS: GLUCOMETER DEV NAME(LOC) 2WR 2E; GLUCOSE,POINT OF CARE 116 MG/DL (70-110)
[2017-11-26] MEDS: OMEGA-3/DHA/EPA/FISH OIL 1,000 MG CAPSULE PO SCH (09:21)
[2017-11-26] MEDS: POLYETHYLENE GLYCOL 3350 17 GM PACKET PO SCH ×2 (09:21→09:45)
[2017-11-26] MEDS: CARBIDOPA/LEVODOPA 25-100 MG TABLET PO SCH ×4 (09:21→18:37)
[2017-11-26] MEDS: MAGNESIUM OXIDE 400 MG TABLET PO SCH ×2 (09:21→21:08)
[2017-11-26] MEDS: ASPIRIN/DIPYRIDAMOLE ER 25/200 MG ER CAPSULE PO SCH (09:21)
[2017-11-26] MEDS: POTASSIUM CHLORIDE 20 MEQ ER TABLET PO SCH (09:21)
[2017-11-26] MEDS: DOCUSATE SODIUM 250 MG CAPSULE PO SCH ×2 (09:21→09:45)
[2017-11-26] MEDS: MetFORMIN HCL 500 MG TABLET PO SCH ×3 (09:22→18:37)
[2017-11-26] MEDS: AmLODIPine BESYLATE 5 MG TABLET PO SCH (09:23)
[2017-11-26] MEDS: ASPIRIN 81 MG CHEWABLE TABLET PO SCH (09:23)
[2017-11-26 09:31] VITALS: BP 100/63
[2017-11-26 12:29] LABS: GLUCOMETER DEV NAME(LOC) 2WR 1B; GLUCOSE,POINT OF CARE 138 MG/DL (70-110)
[2017-11-26 16:20] VITALS: BP 119/70
[2017-11-26 17:59] LABS: GLUCOMETER DEV NAME(LOC) 2WR 1B; GLUCOSE,POINT OF CARE 128 MG/DL (70-110)
[2017-11-26] MEDS: LATANOPROST 0.005% 2.5 ML OPHTHALMIC SOLUTION OU SCH (21:08)
[2017-11-26] MEDS: TERAZOSIN HCL 2 MG CAPSULE PO SCH (21:08)
[2017-11-26] MEDS: QUEtiapine FUMARATE 100 MG TABLET PO SCH (21:08)
[2017-11-26] MEDS: FAMOTIDINE 20 MG TABLET PO SCH (21:09)
[2017-11-26] MEDS: TAMSULOSIN HCL 0.4 MG CAPSULE PO SCH (21:09)
[2017-11-26 21:33] LABS: GLUCOMETER DEV NAME(LOC) 2WR 1B; GLUCOSE,POINT OF CARE 107 MG/DL (70-110)
[2017-11-27 00:42] VITALS: BP 150/74
[2017-11-27 06:35] LABS: GLUCOMETER DEV NAME(LOC) 2WR 2E; GLUCOSE,POINT OF CARE 95 MG/DL (70-110)
[2017-11-27 07:40] VITALS: BP 95/50
[2017-11-27] MEDS: POLYETHYLENE GLYCOL 3350 17 GM PACKET PO SCH ×3 (09:00→20:48)
[2017-11-27] MEDS: DOCUSATE SODIUM 250 MG CAPSULE PO SCH ×3 (09:00→20:47)
[2017-11-27] MEDS: AmLODIPine BESYLATE 5 MG TABLET PO SCH ×2 (09:00→09:55)
[2017-11-27] MEDS: POTASSIUM CHLORIDE 20 MEQ ER TABLET PO SCH (09:54)
[2017-11-27] MEDS: CARBIDOPA/LEVODOPA 25-100 MG TABLET PO SCH ×4 (09:54→20:47)
[2017-11-27] MEDS: ASPIRIN/DIPYRIDAMOLE ER 25/200 MG ER CAPSULE PO SCH (09:54)
[2017-11-27] MEDS: MAGNESIUM OXIDE 400 MG TABLET PO SCH ×2 (09:54→20:47)
[2017-11-27] MEDS: ASPIRIN 81 MG CHEWABLE TABLET PO SCH (09:54)
[2017-11-27] MEDS: OMEGA-3/DHA/EPA/FISH OIL 1,000 MG CAPSULE PO SCH (09:55)
[2017-11-27] MEDS ORDERED: MetFORMIN HCL 500 MG TABLET PO ONE (10:15)
[2017-11-27 12:12] VITALS: BP 100/61
[2017-11-27 16:21] VITALS: BP 101/67
[2017-11-27] MEDS: MetFORMIN HCL 500 MG TABLET PO SCH (16:43)
[2017-11-27 17:34] LABS: GLUCOMETER DEV NAME(LOC) 2WR 1B; GLUCOSE,POINT OF CARE 133 MG/DL (70-110)
[2017-11-27 20:44] VITALS: BP 114/69
[2017-11-27] MEDS: TAMSULOSIN HCL 0.4 MG CAPSULE PO SCH (20:46)
[2017-11-27] MEDS: QUEtiapine FUMARATE 100 MG TABLET PO SCH (20:46)
[2017-11-27] MEDS: LATANOPROST 0.005% 2.5 ML OPHTHALMIC SOLUTION OU SCH (20:46)
[2017-11-27] MEDS: FAMOTIDINE 20 MG TABLET PO SCH (20:47)
[2017-11-27] MEDS: TERAZOSIN HCL 2 MG CAPSULE PO SCH (20:47)
[2017-11-27 23:45] VITALS: BP 139/67
[2017-11-28 05:31] LABS: ANION GAP 4 mmol/L (8-16); CALCIUM, TOTAL 8.8 mg/dL (8.8-10.5); CARBON DIOXIDE 30 mmol/L (22-29); CHLORIDE 103 mmol/L (98-107); CREATININE 0.83 mg/dL (0.60-1.30); GLUCOSE,RANDOM 101 mg/dL (70-110); POTASSIUM 3.9 mmol/L (3.5-5.1); SODIUM SERUM 137 mmol/L (136-145); UREA NITROGEN, BLOOD 19 mg/dL (7-18)
[2017-11-28 05:36] LABS: GLOMERULAR FILTR. RATE CALC > 60 mL/min (>60)
[2017-11-28 06:39] LABS: GLUCOMETER DEV NAME(LOC) 2WR 1B; GLUCOSE,POINT OF CARE 92 MG/DL (70-110)
[2017-11-28] MEDS: AmLODIPine BESYLATE 5 MG TABLET PO SCH (09:07)
[2017-11-28] MEDS: OMEGA-3/DHA/EPA/FISH OIL 1,000 MG CAPSULE PO SCH (09:07)
[2017-11-28] MEDS: DOCUSATE SODIUM 250 MG CAPSULE PO SCH ×3 (09:08→20:45)
[2017-11-28] MEDS: CARBIDOPA/LEVODOPA 25-100 MG TABLET PO SCH ×4 (09:08→20:39)
[2017-11-28] MEDS: ASPIRIN/DIPYRIDAMOLE ER 25/200 MG ER CAPSULE PO SCH (09:08)
[2017-11-28] MEDS: POTASSIUM CHLORIDE 20 MEQ ER TABLET PO SCH (09:08)
[2017-11-28] MEDS: MAGNESIUM OXIDE 400 MG TABLET PO SCH ×2 (09:08→20:39)
[2017-11-28] MEDS: POLYETHYLENE GLYCOL 3350 17 GM PACKET PO SCH ×3 (09:08→20:45)
[2017-11-28] MEDS: ASPIRIN 81 MG CHEWABLE TABLET PO SCH (09:09)
[2017-11-28] MEDS: MetFORMIN HCL 500 MG TABLET PO SCH ×2 (09:11→16:33)
[2017-11-28 15:05] VITALS: BP 98/54
[2017-11-28 17:54] LABS: GLUCOMETER DEV NAME(LOC) 2WR 2E; GLUCOSE,POINT OF CARE 121 MG/DL (70-110)
[2017-11-28 20:30] VITALS: BP 121/65
[2017-11-28] MEDS: FAMOTIDINE 20 MG TABLET PO SCH (20:39)
[2017-11-28] MEDS: TAMSULOSIN HCL 0.4 MG CAPSULE PO SCH (20:39)
[2017-11-28] MEDS: TERAZOSIN HCL 2 MG CAPSULE PO SCH (20:39)
[2017-11-28] MEDS: LATANOPROST 0.005% 2.5 ML OPHTHALMIC SOLUTION OU SCH (20:40)
[2017-11-28] MEDS ORDERED: QUEtiapine FUMARATE 25 MG TABLET PO SCH ×2 (21:00)
[2017-11-29] VITALS: BP 137/70
[2017-11-29] MEDS ORDERED: DOCU250C91 PO (01:47)
[2017-11-29] MEDS ORDERED: KDUR20 PO (01:47)
[2017-11-29] MEDS ORDERED: METF500T6 PO (01:47)
[2017-11-29] MEDS ORDERED: TAMS0.4C32 PO (01:47)
[2017-11-29] MEDS ORDERED: QUET25TA PO (01:47)
[2017-11-29] MEDS ORDERED: MAGOX PO (01:47)
[2017-11-29] MEDS ORDERED: MIRALAX PO (01:47)
[2017-11-29 06:30] LABS: GLUCOMETER DEV NAME(LOC) 2WR 1B; GLUCOSE,POINT OF CARE 96 MG/DL (70-110)
[2017-11-29 08:30] VITALS: BP 112/64
[2017-11-29] MEDS: CARBIDOPA/LEVODOPA 25-100 MG TABLET PO SCH (09:18)
[2017-11-29] MEDS: MAGNESIUM OXIDE 400 MG TABLET PO SCH (09:19)
[2017-11-29] MEDS: MetFORMIN HCL 500 MG TABLET PO SCH (09:19)
[2017-11-29] MEDS: OMEGA-3/DHA/EPA/FISH OIL 1,000 MG CAPSULE PO SCH (09:19)
[2017-11-29] MEDS: POTASSIUM CHLORIDE 20 MEQ ER TABLET PO SCH (09:19)
[2017-11-29] MEDS: DOCUSATE SODIUM 250 MG CAPSULE PO SCH (09:20)
[2017-11-29] MEDS: ASPIRIN/DIPYRIDAMOLE ER 25/200 MG ER CAPSULE PO SCH (09:20)
[2017-11-29] MEDS: AmLODIPine BESYLATE 5 MG TABLET PO SCH (09:21)
[2017-11-29] MEDS: ASPIRIN 81 MG CHEWABLE TABLET PO SCH (09:24)
[2017-11-29] MEDS: POLYETHYLENE GLYCOL 3350 17 GM PACKET PO SCH (09:24)
== END 2017-11-29 13:03 | disposition home or self-care (01) | DRG 56 ==
LOC: 2WR 19:18
PROVIDERS: ADMIT Physical Medicine & Rehabilitation; ATTEND Physical Medicine & Rehabilitation
DX: G20 Parkinson's disease (principal); G93.40 Encephalopathy, unspecified; G40.909 Epilepsy, unspecified, not intractable, without status epilepticus; G30.9 Alzheimer's disease, unspecified; F02.80 Dementia in other diseases classified elsewhere, unspecified severity, without behavioral disturbance, psychotic disturbance, mood disturbance, and anxiety; E03.9 Hypothyroidism, unspecified; E11.9 Type 2 diabetes mellitus without complications; E78.5 Hyperlipidemia, unspecified; E83.42 Hypomagnesemia; E87.6 Hypokalemia; H40.9 Unspecified glaucoma; H53.40 Unspecified visual field defects; I10 Essential (primary) hypertension; E83.41 Hypermagnesemia; K21.9 Gastro-esophageal reflux disease without esophagitis; N40.1 Benign prostatic hyperplasia with lower urinary tract symptoms; R53.81 Other malaise; F29 Unspecified psychosis not due to a substance or known physiological condition; R13.10 Dysphagia, unspecified; R33.8 Other retention of urine; Z86.73 Personal history of transient ischemic attack (TIA), and cerebral infarction without residual deficits; Z87.891 Personal history of nicotine dependence; Z91.81 History of falling; Z79.4 Long term (current) use of insulin; Z79.899 Other long term (current) drug therapy; Z79.82 Long term (current) use of aspirin; Z88.8 Allergy status to other drugs, medicaments and biological substances
CPT/HCPCS: 73503; 82607; 82746; 83036; 83735; 84153; 84443; 87081; 92507; 92508; 92526; 92610; 94660; 97110; 97112; 97116; 97150; 97163; 97167; 97530; 97535; 99366; J1630

== ENCOUNTER 2018-01-05 05:26 | Emergency (ER) | payer MEDICARE ==
[~2018-01-05] VITALS: Ht 170.2 cm; Wt 68.2 kg
[~2018-01-05 05:26] MED LIST changes: +DOCU250C91 PO; -KCL10IV IV; +KDUR20 PO; -LEVE500T53 PO; -MAGN100T PO; -MAGN2PIG IV; -MAGN4PIG IV; +METF-960 PO; -METF500T7 PO; +MIRALAX PO; -POTA20TA11 PO; +QUET25TA PO; +TAMS0.4C32 PO; -VITA-382 PO
[2018-01-05 05:37] VITALS: BP 138/80
[2018-01-05 05:48] LABS: GLUCOSE,POINT OF CARE 140 MG/DL (70-110)
[2018-01-05] MEDS ORDERED: SITA1TAB6 PO (05:53)
== END 2018-01-05 05:59 | disposition left against medical advice (07) ==
LOC: EMS 05:26
DX: K59.00 Constipation, unspecified (principal); K92.1 Melena; E11.9 Type 2 diabetes mellitus without complications; I10 Essential (primary) hypertension; Z86.73 Personal history of transient ischemic attack (TIA), and cerebral infarction without residual deficits; Z53.21 Procedure and treatment not carried out due to patient leaving prior to being seen by health care provider

== ENCOUNTER 2019-01-15 17:11 | Inpatient (IN) | payer MEDICARE ==
[~2019-01-15] VITALS: Ht 170.2 cm; Wt 66.7 kg
[~2019-01-15 17:11] MED LIST changes: -AMLO-511 PO; -ASPI1CPM6 PO; -DOCU250C91 PO; -KDUR20 PO; -MAGOX PO; -METF-960 PO; -MIRALAX PO; -QUET25TA PO; +SITA1TAB6 PO; -TERA2 PO
[2019-01-15 17:26] LABS: BASOPHILS % (AUTO) 0.6 % (0.0-2.0); EOSINOPHILS % (AUTO) 4.1 % (1.0-6.0); HEMATOCRIT 37.5 % (41-53); HEMOGLOBIN 12.2 g/dL (13.5-17.5); LYMPHOCYTES # (AUTO) 1.9 K/uL (1.0-4.8); LYMPHOCYTES % (AUTO) 23.2 % (22.0-44.0); MEAN CORPUSCULAR HEMOGLOBIN 31.3 pg (26.0-34.0); MEAN CORPUSCULAR HGB CONC 32.6 G/dL (31.0-37.0); MEAN CORPUSCULAR VOLUME 96 fL (80-100); MONOCYTES # (AUTO) 0.7 K/uL (0.1-1.0); MONOCYTES % (AUTO) 8.8 % (2.0-9.0); NEUTROPHILS # (AUTO) 5.1 K/uL (1.8-7.7); NEUTROPHILS % (AUTO) 63.3 % (40.0-70.0); PLATELET COUNT (AUTO) 160 K/uL (150-450); RED CELL DISTRIBUTION WIDTH 13.3 % (11.5-14.5)
[2019-01-15 17:32] LABS: ANION GAP 6 mmol/L (8-16); CALCIUM, TOTAL 9.3 mg/dL (8.8-10.5); CARBON DIOXIDE 27 mmol/L (22-29); CHLORIDE 100 mmol/L (98-107); CREATININE 1.14 mg/dL (0.60-1.30); GLUCOSE,RANDOM 108 mg/dL (70-110); POTASSIUM 4.4 mmol/L (3.5-5.1); SODIUM SERUM 133 mmol/L (136-145); UREA NITROGEN, BLOOD 14 mg/dL (7-18)
[2019-01-15 17:33] LABS: GLOMERULAR FILTR. RATE CALC > 60 mL/min (>60)
[2019-01-15 17:37] LABS: ALANINE AMINOTRANSFERASE 11 U/L (12-78); ALBUMIN 3.9 g/dL (3.4-5.0); ALKALINE PHOSPHATASE 42 U/L (46-116); ASPARTATE AMINOTRANSFERASE 18 U/L (15-37); BILIRUBIN,TOTAL 0.5 mg/dL (0.1-1.0)
[2019-01-15] MEDS ORDERED: IOVERSOL 320 MG/ML 100 ML VIAL ONE (17:43)
[2019-01-15] MEDS ORDERED: SODIUM CHLORIDE 0.9% 100 ML ONE (17:43)
[2019-01-15 17:46] LABS: PROTHROMBIN TIME 10.7 SEC (9.4-11.6)
[2019-01-15 18:06] LABS: APPEARANCE,URINE CLEAR (CLEAR); BILIRUBIN,URINE NEGATIVE (NEGATIVE); GLUCOSE, URINE (UA) NEGATIVE (NEGATIVE); KETONES,URINE NEGATIVE (NEGATIVE); LEUKOCYTE ESTERASE ,URINE NEGATIVE (NEGATIVE); NITRATE,URINE NEGATIVE (NEGATIVE); OCCULT BLOOD,URINE TRACE (NEGATIVE); PH,URINE 7.5 (5.0-8.0); PROTEIN,URINE NEGATIVE (NEGATIVE); UROBILINOGEN,URINE 0.2 mg/dL (<=1.0)
[2019-01-15 18:10] LABS: AMPHET/METH SCREEN,URINE NEGATIVE (NEGATIVE); BARBITURATE SCREEN, URINE NEGATIVE (NEGATIVE); BENZODIAZEPINES SCREEN,URINE NEGATIVE (NEGATIVE); CANNABINOID SCREEN,URINE NEGATIVE (NEGATIVE); COCAINE SCREEN,URINE NEGATIVE (NEGATIVE); METHADONE SCREEN, URINE NEGATIVE (NEGATIVE); OPIATE SCREEN,URINE NEGATIVE (NEGATIVE); PHENCYCLIDINE SCREEN,URINE NEGATIVE (NEGATIVE)
[2019-01-15 18:20] LABS: BACTERIA,URINE Rare /HPF (None Seen); SQUAMOUS EPITHELIAL CELL,UR Few /LPF (None Seen); WBC,URINE 0-2 /HPF (0-5)
[2019-01-15 21:00] VITALS: BP 172/99
[2019-01-15] MEDS ORDERED: SODIUM CHLORIDE 0.9% 1,000 ML IV ONE (21:15)
[2019-01-15] MEDS ORDERED: ZOLPIDEM TARTRATE 5 MG TABLET PO PRN (23:30)
[2019-01-15] MEDS ORDERED: IPRATROPIUM BROMIDE 0.5 MG/2.5 ML NEB SOLUTION NEB PRN (23:30)
[2019-01-15] MEDS ORDERED: ONDANSETRON HCL 4 MG/2 ML VIAL IVP PRN (23:30)
[2019-01-15] MEDS ORDERED: BISACODYL 10 MG RECTAL RECTAL SUPPOSITORY PR PRN (23:30)
[2019-01-15] MEDS ORDERED: MORPHINE SULFATE 2 MG/ML SYRINGE IVP PRN (23:30)
[2019-01-15] MEDS ORDERED: ALBUTEROL SULFATE 2.5 MG/0.5 ML NEB SOLUTION NEB PRN (23:30)
[2019-01-15] MEDS ORDERED: HydrALAZINE HCL 20 MG/ML VIAL IVP PRN (23:30)
[2019-01-15] MEDS ORDERED: MAGNESIUM HYDROXIDE SUSPENSION 30 ML UDCUP PO PRN (23:30)
[2019-01-15] MEDS ORDERED: ACETAMINOPHEN 325 MG TABLET PO PRN (23:30)
[2019-01-15] MEDS ORDERED: [UNRECOGNIZED DRUG - REMARK] MISC ONE (23:45)
[2019-01-15 23:58] VITALS: BP 199/98
[2019-01-15] MEDS: HEPARIN SODIUM,PORCINE 5,000 UNITS/ML VIAL SQ SCH (23:59)
[2019-01-16 04:00] VITALS: BP 155/87
[2019-01-16 07:30] VITALS: BP 141/66
[2019-01-16] MEDS ORDERED: MISC MED-CONVERTED FROM AMBULATORY (Sitagliptin Phos/Metformin HCl (Janumet 50-1,000 mg Ta PO SCH (09:00)
[2019-01-16] MEDS ORDERED: ASPIRIN 81 MG EC TABLET PO SCH (09:00)
[2019-01-16] MEDS: MetFORMIN HCL 500 MG TABLET PO SCH ×2 (09:14→17:38)
[2019-01-16] MEDS: HEPARIN SODIUM,PORCINE 5,000 UNITS/ML VIAL SQ SCH ×2 (09:14→17:37)
[2019-01-16] MEDS: ASPIRIN 81 MG CHEWABLE TABLET PO SCH (09:14)
[2019-01-16] MEDS: SitaGLIPtin PHOSPHATE 50 MG TABLET PO SCH ×2 (09:14→17:38)
[2019-01-16] MEDS: CLOPIDOGREL BISULFATE 75 MG TABLET PO SCH (09:15)
[2019-01-16] MEDS: OMEGA-3/DHA/EPA/FISH OIL 1,000 MG CAPSULE PO SCH (09:15)
[2019-01-16] MEDS: DOCUSATE SODIUM 100 MG CAPSULE PO SCH ×2 (09:15→21:16)
[2019-01-16] MEDS: HYDROCODONE/ACETAMINOPHEN 5-325 MG TABLET PO PRN ×2 (09:15→13:19)
[2019-01-16] MEDS: CARBIDOPA/LEVODOPA 25-100 MG TABLET PO SCH ×4 (09:15→21:17)
[2019-01-16 11:12] VITALS: BP 139/79
[2019-01-16 12:21] LABS: GLUCOMETER DEV NAME(LOC) 5S.1; GLUCOSE,POINT OF CARE 107 MG/DL (70-110)
[2019-01-16] MEDS: ATORVASTATIN CALCIUM 20 MG TABLET PO SCH (13:18)
[2019-01-16 14:56] VITALS: BP 144/70
[2019-01-16 18:05] LABS: GLUCOMETER DEV NAME(LOC) 5S.1; GLUCOSE,POINT OF CARE 99 MG/DL (70-110)
[2019-01-16 19:57] VITALS: BP 120/64
[2019-01-16] MEDS ORDERED: TAMSULOSIN HCL 0.4 MG CAPSULE PO SCH (21:00)
[2019-01-16] MEDS ORDERED: FAMOTIDINE 20 MG TABLET PO SCH (21:00)
[2019-01-16] MEDS ORDERED: LATANOPROST 0.005% 2.5 ML OPHTHALMIC SOLUTION OU SCH (21:00)
[2019-01-16 23:46] VITALS: BP 130/72
[2019-01-17] MEDS: HEPARIN SODIUM,PORCINE 5,000 UNITS/ML VIAL SQ SCH ×3 (01:11→16:17)
[2019-01-17 04:48] VITALS: BP 132/60
[2019-01-17 07:35] VITALS: BP 129/76
[2019-01-17] MEDS: MetFORMIN HCL 500 MG TABLET PO SCH (08:00)
[2019-01-17] MEDS: ASPIRIN 81 MG CHEWABLE TABLET PO SCH (08:30)
[2019-01-17] MEDS: SitaGLIPtin PHOSPHATE 50 MG TABLET PO SCH (08:30)
[2019-01-17] MEDS: DOCUSATE SODIUM 100 MG CAPSULE PO SCH (08:30)
[2019-01-17] MEDS: ATORVASTATIN CALCIUM 20 MG TABLET PO SCH (08:31)
[2019-01-17] MEDS: CARBIDOPA/LEVODOPA 25-100 MG TABLET PO SCH ×3 (08:31→16:09)
[2019-01-17] MEDS: CLOPIDOGREL BISULFATE 75 MG TABLET PO SCH (08:31)
[2019-01-17] MEDS: OMEGA-3/DHA/EPA/FISH OIL 1,000 MG CAPSULE PO SCH (08:31)
[2019-01-17 09:16] LABS: GLUCOMETER DEV NAME(LOC) 5S.1; GLUCOSE,POINT OF CARE 113 MG/DL (70-110)
[2019-01-17 09:16] LABS: GLUCOMETER DEV NAME(LOC) 5S.1; GLUCOSE,POINT OF CARE 120 MG/DL (70-110)
[2019-01-17 11:32] VITALS: BP 157/85
[2019-01-18 10:45] LABS: GLUCOMETER DEV NAME(LOC) 5S.1; GLUCOSE,POINT OF CARE 89 MG/DL (70-110)
== END 2019-01-17 16:45 | disposition home or self-care (01) | DRG 57 ==
LOC: EMS 17:23 → 5S 21:30
PROVIDERS: ADMIT Hospitalist; ATTEND Internal Medicine
DX: G20 Parkinson's disease (principal); I95.1 Orthostatic hypotension; E11.9 Type 2 diabetes mellitus without complications; N40.0 Benign prostatic hyperplasia without lower urinary tract symptoms; H40.9 Unspecified glaucoma; Z66 Do not resuscitate; I10 Essential (primary) hypertension; T50.905A Adverse effect of unspecified drugs, medicaments and biological substances, initial encounter; Y92.89 Other specified places as the place of occurrence of the external cause; Z88.0 Allergy status to penicillin; Z83.3 Family history of diabetes mellitus; Z86.73 Personal history of transient ischemic attack (TIA), and cerebral infarction without residual deficits; Z82.49 Family history of ischemic heart disease and other diseases of the circulatory system; Z79.4 Long term (current) use of insulin
CPT/HCPCS: 51702; 70496; 86850; 86900; 86901; 93005; 93306; 93880; 97162; 99291; G0378; J0360; J1644; J7030; J7050

== ENCOUNTER 2019-01-25 18:37 | Inpatient (IN) | payer MEDICARE ==
[~2019-01-25] VITALS: Ht 170.2 cm; Wt 63.0 kg
[2019-01-25 19:30] LABS: BASOPHILS % (AUTO) 0.7 % (0.0-2.0); EOSINOPHILS % (AUTO) 4.7 % (1.0-6.0); HEMATOCRIT 35.7 % (41-53); HEMOGLOBIN 11.9 g/dL (13.5-17.5); LYMPHOCYTES # (AUTO) 1.5 K/uL (1.0-4.8); LYMPHOCYTES % (AUTO) 24.4 % (22.0-44.0); MEAN CORPUSCULAR HEMOGLOBIN 31.3 pg (26.0-34.0); MEAN CORPUSCULAR HGB CONC 33.3 G/dL (31.0-37.0); MEAN CORPUSCULAR VOLUME 94 fL (80-100); MONOCYTES # (AUTO) 0.6 K/uL (0.1-1.0); MONOCYTES % (AUTO) 9.2 % (2.0-9.0); NEUTROPHILS # (AUTO) 3.9 K/uL (1.8-7.7); PLATELET COUNT (AUTO) 177 K/uL (150-450); RED BLOOD CELL COUNT(AUTO) 3.79 MIL/uL (4.50-5.90); RED CELL DISTRIBUTION WIDTH 13.4 % (11.5-14.5)
[2019-01-25 19:44] LABS: PROTHROMBIN TIME 10.2 SEC (9.4-11.6)
[2019-01-25 19:47] LABS: ANION GAP 5 mmol/L (8-16); CALCIUM, TOTAL 9.6 mg/dL (8.8-10.5); CARBON DIOXIDE 28 mmol/L (22-29); CHLORIDE 98 mmol/L (98-107); CREATININE 1.04 mg/dL (0.60-1.30); GLUCOSE,RANDOM 108 mg/dL (70-110); POTASSIUM 4.2 mmol/L (3.5-5.1); SODIUM SERUM 131 mmol/L (136-145); UREA NITROGEN, BLOOD 17 mg/dL (7-18)
[2019-01-25 19:49] LABS: GLOMERULAR FILTR. RATE CALC > 60 mL/min (>60)
[2019-01-25 19:53] LABS: ALANINE AMINOTRANSFERASE 11 U/L (12-78); ALBUMIN 3.9 g/dL (3.4-5.0); ALKALINE PHOSPHATASE 40 U/L (46-116); ASPARTATE AMINOTRANSFERASE 17 U/L (15-37); BILIRUBIN,TOTAL 0.5 mg/dL (0.1-1.0); TOTAL PROTEIN, SERUM 7.1 g/dL (6.4-8.2)
[2019-01-25] MEDS ORDERED: ASPIRIN 81 MG CHEWABLE TABLET PO ONE (20:00)
[2019-01-25] MEDS ORDERED: 0.9% SODIUM CHLORIDE 10 ML SYRINGE IVP PRN (20:30)
[2019-01-25] MEDS ORDERED: ACETAMINOPHEN 325 MG TABLET PO PRN ×2 (20:30→21:00)
[2019-01-25] MEDS ORDERED: ONDANSETRON HCL 4 MG/2 ML VIAL IVP PRN ×2 (20:30→21:00)
[2019-01-25] MEDS ORDERED: INSULIN LISPRO 100 UNITS/ML SQ PRN (21:00)
[2019-01-25] MEDS ORDERED: DEXTROSE 50%-WATER 25 GM/50 ML SYRINGE IVP PRN (21:00)
[2019-01-25] MEDS ORDERED: MAGNESIUM HYDROXIDE SUSPENSION 30 ML UDCUP PO PRN (21:00)
[2019-01-25] MEDS ORDERED: ZOLPIDEM TARTRATE 5 MG TABLET PO PRN (21:00)
[2019-01-25] MEDS ORDERED: HYDROCODONE/ACETAMINOPHEN 5-325 MG TABLET PO PRN (21:00)
[2019-01-25] MEDS ORDERED: BISACODYL 10 MG RECTAL RECTAL SUPPOSITORY PR PRN (21:00)
[2019-01-25] MEDS ORDERED: MORPHINE SULFATE 2 MG/ML SYRINGE IVP PRN (21:00)
[2019-01-25] MEDS ORDERED: MISC MED-CONVERTED FROM AMBULATORY (Sitagliptin Phos/Metformin HCl (Janumet 50-1,000 mg Ta PO SCH (21:00)
[2019-01-25 21:33] LABS: APPEARANCE,URINE CLEAR (CLEAR); BILIRUBIN,URINE NEGATIVE (NEGATIVE); GLUCOSE, URINE (UA) NEGATIVE (NEGATIVE); KETONES,URINE NEGATIVE (NEGATIVE); LEUKOCYTE ESTERASE ,URINE NEGATIVE (NEGATIVE); NITRATE,URINE NEGATIVE (NEGATIVE); OCCULT BLOOD,URINE NEGATIVE (NEGATIVE); PH,URINE 6.5 (5.0-8.0); PROTEIN,URINE NEGATIVE (NEGATIVE); UROBILINOGEN,URINE 0.2 mg/dL (<=1.0)
[2019-01-25 21:47] LABS: BACTERIA,URINE None Seen /HPF (None Seen); RBC,URINE None Seen /HPF (0-2); SQUAMOUS EPITHELIAL CELL,UR Rare /LPF (None Seen); WBC,URINE None Seen /HPF (0-5)
[2019-01-25] MEDS: TAMSULOSIN HCL 0.4 MG CAPSULE PO SCH (22:44)
[2019-01-25] MEDS: ATORVASTATIN CALCIUM 10 MG TABLET PO SCH (22:45)
[2019-01-25] MEDS: CARBIDOPA/LEVODOPA 25-100 MG TABLET PO SCH (22:45)
[2019-01-25] MEDS: DOCUSATE SODIUM 100 MG CAPSULE PO SCH (22:49)
[2019-01-25 22:57] VITALS: BP 174/84
[2019-01-25] MEDS: HEPARIN SODIUM,PORCINE 5,000 UNITS/ML VIAL SQ SCH (23:18)
[2019-01-25] MEDS ORDERED: HydrALAZINE HCL 20 MG/ML VIAL IVP PRN (23:30)
[2019-01-26 00:22] VITALS: BP 163/96
[2019-01-26 05:22] VITALS: BP 161/82
[2019-01-26] MEDS: MetFORMIN HCL 500 MG TABLET PO SCH ×2 (07:56→17:44)
[2019-01-26] MEDS: SitaGLIPtin PHOSPHATE 50 MG TABLET PO SCH ×2 (07:56→17:44)
[2019-01-26 08:05] LABS: BASOPHILS % (AUTO) 1.1 % (0.0-2.0); EOSINOPHILS % (AUTO) 6.2 % (1.0-6.0); HEMATOCRIT 36.4 % (41-53); HEMOGLOBIN 12.1 g/dL (13.5-17.5); LYMPHOCYTES # (AUTO) 2.4 K/uL (1.0-4.8); MEAN CORPUSCULAR HEMOGLOBIN 31.7 pg (26.0-34.0); MEAN CORPUSCULAR HGB CONC 33.3 G/dL (31.0-37.0); MEAN CORPUSCULAR VOLUME 95 fL (80-100); MONOCYTES # (AUTO) 0.6 K/uL (0.1-1.0); MONOCYTES % (AUTO) 8.4 % (2.0-9.0); NEUTROPHILS # (AUTO) 3.4 K/uL (1.8-7.7); NEUTROPHILS % (AUTO) 49.3 % (40.0-70.0); PLATELET COUNT (AUTO) 177 K/uL (150-450); RED BLOOD CELL COUNT(AUTO) 3.83 MIL/uL (4.50-5.90); RED CELL DISTRIBUTION WIDTH 13.2 % (11.5-14.5)
[2019-01-26 08:21] LABS: ALBUMIN 3.7 g/dL (3.4-5.0); ALKALINE PHOSPHATASE 36 U/L (46-116); ANION GAP 10 mmol/L (8-16); ASPARTATE AMINOTRANSFERASE 14 U/L (15-37); BILIRUBIN,TOTAL 0.6 mg/dL (0.1-1.0); CALCIUM, TOTAL 9.2 mg/dL (8.8-10.5); CARBON DIOXIDE 25 mmol/L (22-29); CHLORIDE 98 mmol/L (98-107); CHOL/HDL RATIO 2.7 (4.2-7.3); CHOLESTEROL 139 mg/dL (131-200); CREATININE 0.88 mg/dL (0.60-1.30); GLUCOSE,RANDOM 97 mg/dL (70-110); HDL CHOLESTEROL 52 mg/dL (40-60); LDL CHOL (CALC.) 72 mg/dL (0-130); POTASSIUM 3.8 mmol/L (3.5-5.1); SODIUM SERUM 133 mmol/L (136-145); TRIGLYCERIDES 75 mg/dL (15-150); UREA NITROGEN, BLOOD 12 mg/dL (7-18)
[2019-01-26 08:23] LABS: GLOMERULAR FILTR. RATE CALC > 60 mL/min (>60)
[2019-01-26] MEDS: CARBIDOPA/LEVODOPA 25-100 MG TABLET PO SCH ×4 (08:23→19:58)
[2019-01-26] MEDS: HEPARIN SODIUM,PORCINE 5,000 UNITS/ML VIAL SQ SCH ×3 (08:23→23:17)
[2019-01-26] MEDS: ASPIRIN 81 MG CHEWABLE TABLET PO SCH (08:24)
[2019-01-26] MEDS: PANTOPRAZOLE SODIUM 40 MG DR TABLET PO SCH (08:24)
[2019-01-26] MEDS: DOCUSATE SODIUM 100 MG CAPSULE PO SCH ×2 (08:24→19:58)
[2019-01-26] MEDS: AmLODIPine BESYLATE 10 MG TABLET PO SCH (08:24)
[2019-01-26 08:37] LABS: ALANINE AMINOTRANSFERASE 9 U/L (12-78)
[2019-01-26 08:46] VITALS: BP 112/62
[2019-01-26 09:16] LABS: GLUCOMETER DEV NAME(LOC) 5N.2; GLUCOSE,POINT OF CARE 83 MG/DL (70-110)
[2019-01-26 09:16] LABS: GLUCOMETER DEV NAME(LOC) 5N.2; GLUCOSE,POINT OF CARE 104 MG/DL (70-110)
[2019-01-26 10:17] VITALS: BP 124/76
[2019-01-26 11:26] LABS: GLUCOMETER DEV NAME(LOC) 5N.2; GLUCOSE,POINT OF CARE 97 MG/DL (70-110)
[2019-01-26 16:04] VITALS: BP 120/68
[2019-01-26 19:30] LABS: GLUCOMETER DEV NAME(LOC) 5S.1; GLUCOSE,POINT OF CARE 92 MG/DL (70-110)
[2019-01-26] MEDS: ATORVASTATIN CALCIUM 10 MG TABLET PO SCH (19:58)
[2019-01-26] MEDS: TAMSULOSIN HCL 0.4 MG CAPSULE PO SCH (19:58)
[2019-01-26 20:13] VITALS: BP 120/76
[2019-01-27] VITALS (7 sets, daily range): BP systolic 101–154; BP diastolic 58–86
[2019-01-27 05:56] LABS: GLUCOMETER DEV NAME(LOC) 5S.1; GLUCOSE,POINT OF CARE 102 MG/DL (70-110)
[2019-01-27 06:06] LABS: GLUCOMETER DEV NAME(LOC) 5N.1; GLUCOSE,POINT OF CARE 103 MG/DL (70-110)
[2019-01-27] MEDS: CARBIDOPA/LEVODOPA 25-100 MG TABLET PO SCH ×4 (08:17→21:28)
[2019-01-27] MEDS: SitaGLIPtin PHOSPHATE 50 MG TABLET PO SCH ×2 (08:17→18:05)
[2019-01-27] MEDS: HEPARIN SODIUM,PORCINE 5,000 UNITS/ML VIAL SQ SCH ×2 (08:17→16:43)
[2019-01-27] MEDS: ASPIRIN 81 MG CHEWABLE TABLET PO SCH (08:17)
[2019-01-27] MEDS: DOCUSATE SODIUM 100 MG CAPSULE PO SCH ×2 (08:17→21:27)
[2019-01-27] MEDS: MetFORMIN HCL 500 MG TABLET PO SCH ×2 (08:17→18:05)
[2019-01-27] MEDS: AmLODIPine BESYLATE 10 MG TABLET PO SCH (08:17)
[2019-01-27] MEDS: PANTOPRAZOLE SODIUM 40 MG DR TABLET PO SCH (08:17)
[2019-01-27 20:11] LABS: GLUCOMETER DEV NAME(LOC) 5N.2; GLUCOSE,POINT OF CARE 126 MG/DL (70-110)
[2019-01-27 20:11] LABS: GLUCOMETER DEV NAME(LOC) 5N.2; GLUCOSE,POINT OF CARE 106 MG/DL (70-110)
[2019-01-27 20:12] LABS: GLUCOMETER DEV NAME(LOC) 5N.2; GLUCOSE,POINT OF CARE 111 MG/DL (70-110)
[2019-01-27 20:12] LABS: GLUCOMETER DEV NAME(LOC) 5N.2; GLUCOSE,POINT OF CARE 118 MG/DL (70-110)
[2019-01-27] MEDS: ATORVASTATIN CALCIUM 10 MG TABLET PO SCH (21:27)
[2019-01-27] MEDS: TAMSULOSIN HCL 0.4 MG CAPSULE PO SCH (21:27)
[2019-01-27 22:56] LABS: GLUCOMETER DEV NAME(LOC) 5S.1; GLUCOSE,POINT OF CARE 106 MG/DL (70-110)
[2019-01-28 04:17] VITALS: BP 148/84
[2019-01-28 07:25] VITALS: BP 143/77
[2019-01-28] MEDS: CARBIDOPA/LEVODOPA 25-100 MG TABLET PO SCH ×4 (09:03→20:38)
[2019-01-28] MEDS: HEPARIN SODIUM,PORCINE 5,000 UNITS/ML VIAL SQ SCH ×4 (09:04→23:58)
[2019-01-28] MEDS: AmLODIPine BESYLATE 10 MG TABLET PO SCH (09:04)
[2019-01-28] MEDS: PANTOPRAZOLE SODIUM 40 MG DR TABLET PO SCH (09:04)
[2019-01-28] MEDS: ASPIRIN 81 MG CHEWABLE TABLET PO SCH (09:04)
[2019-01-28] MEDS: DOCUSATE SODIUM 100 MG CAPSULE PO SCH ×2 (09:04→20:38)
[2019-01-28] MEDS: SitaGLIPtin PHOSPHATE 50 MG TABLET PO SCH ×2 (09:04→17:11)
[2019-01-28] MEDS: MetFORMIN HCL 500 MG TABLET PO SCH ×2 (10:45→17:11)
[2019-01-28 11:10] VITALS: BP 118/65
[2019-01-28 15:05] VITALS: BP 135/67
[2019-01-28 19:56] LABS: GLUCOMETER DEV NAME(LOC) 5S.2A; GLUCOSE,POINT OF CARE 113 MG/DL (70-110)
[2019-01-28 20:32] VITALS: BP 112/64
[2019-01-28] MEDS: ATORVASTATIN CALCIUM 10 MG TABLET PO SCH (20:38)
[2019-01-28] MEDS: TAMSULOSIN HCL 0.4 MG CAPSULE PO SCH (20:38)
[2019-01-28] MEDS ORDERED: MIRTAZAPINE 15 MG TABLET PO SCH (21:00)
[2019-01-29 00:25] VITALS: BP 130/73
[2019-01-29 04:51] VITALS: BP 124/70
[2019-01-29 07:01] LABS: GLUCOMETER DEV NAME(LOC) 5S.1; GLUCOSE,POINT OF CARE 92 MG/DL (70-110)
[2019-01-29 07:22] VITALS: BP 132/77
[2019-01-29] MEDS: SitaGLIPtin PHOSPHATE 50 MG TABLET PO SCH (08:26)
[2019-01-29] MEDS: PANTOPRAZOLE SODIUM 40 MG DR TABLET PO SCH (08:26)
[2019-01-29] MEDS: MetFORMIN HCL 500 MG TABLET PO SCH (08:26)
[2019-01-29] MEDS: DOCUSATE SODIUM 100 MG CAPSULE PO SCH (08:26)
[2019-01-29] MEDS: ASPIRIN 81 MG CHEWABLE TABLET PO SCH (08:26)
[2019-01-29] MEDS: AmLODIPine BESYLATE 10 MG TABLET PO SCH (08:26)
[2019-01-29] MEDS: HEPARIN SODIUM,PORCINE 5,000 UNITS/ML VIAL SQ SCH (08:27)
[2019-01-29] MEDS: CARBIDOPA/LEVODOPA 25-100 MG TABLET PO SCH (08:27)
[2019-01-29] MEDS ORDERED: MIRT15 PO (10:39)
[2019-01-29 11:07] VITALS: BP 138/78
[2019-01-29 11:25] LABS: GLUCOMETER DEV NAME(LOC) 5N.1; GLUCOSE,POINT OF CARE 92 MG/DL (70-110)
[2019-01-29 11:25] LABS: GLUCOMETER DEV NAME(LOC) 5N.1; GLUCOSE,POINT OF CARE 139 MG/DL (70-110)
[2019-01-29] MEDS ORDERED: SIMV-259 PO (11:42)
[2019-01-29 14:40] LABS: GLUCOMETER DEV NAME(LOC) 5N.2; GLUCOSE,POINT OF CARE 133 MG/DL (70-110)
[2019-01-30 04:00] LABS: GLUCOMETER DEV NAME(LOC) 5N.1; GLUCOSE,POINT OF CARE 76 MG/DL (70-110)
== END 2019-01-29 13:30 | disposition home or self-care (01) | DRG 69 ==
LOC: EMS 18:38 → 5S 20:16
PROVIDERS: ADMIT Internal Medicine; ATTEND Internal Medicine
DX: G45.9 Transient cerebral ischemic attack, unspecified (principal); E87.1 Hypo-osmolality and hyponatremia; F33.3 Major depressive disorder, recurrent, severe with psychotic symptoms; I10 Essential (primary) hypertension; E11.9 Type 2 diabetes mellitus without complications; N40.0 Benign prostatic hyperplasia without lower urinary tract symptoms; G20 Parkinson's disease; D64.9 Anemia, unspecified; Z86.73 Personal history of transient ischemic attack (TIA), and cerebral infarction without residual deficits; Z79.82 Long term (current) use of aspirin; Z79.4 Long term (current) use of insulin; Z79.899 Other long term (current) drug therapy
CPT/HCPCS: 70553; 82947; 86850; 86900; 86901; 87081; 92610; 93005; 97116; 97162; 97165; 97535; J0360; J1644

== ENCOUNTER 2019-03-10 18:51 | Inpatient (IN) | payer MEDICARE ==
[~2019-03-10] VITALS: Ht 170.2 cm; Wt 59.9 kg
[~2019-03-10 18:51] MED LIST changes: +MIRT15 PO; +SIMV-259 PO; +TAMS-13 PO; -TAMS0.4C32 PO
[2019-03-10] MEDS ORDERED: ASPIRIN 325 MG TABLET PO ONE (19:00)
[2019-03-10] MEDS ORDERED: SODIUM CHLORIDE 0.9% 100 ML ONE (19:00)
[2019-03-10] MEDS ORDERED: ASPI1CPM6 PO (19:00)
[2019-03-10] MEDS ORDERED: SIMV5TAB58 PO (19:00)
[2019-03-10] MEDS ORDERED: IOVERSOL 350 MG/ML 100 ML VIAL ONE (19:00)
[2019-03-10 19:07] LABS: BASOPHILS % (AUTO) 0.7 % (0.0-2.0); HEMATOCRIT 38.4 % (41-53); HEMOGLOBIN 12.6 g/dL (13.5-17.5); LYMPHOCYTES # (AUTO) 1.8 K/uL (1.0-4.8); LYMPHOCYTES % (AUTO) 22.5 % (22.0-44.0); MEAN CORPUSCULAR HEMOGLOBIN 31.3 pg (26.0-34.0); MEAN CORPUSCULAR HGB CONC 32.9 G/dL (31.0-37.0); MEAN CORPUSCULAR VOLUME 95 fL (80-100); MONOCYTES # (AUTO) 0.8 K/uL (0.1-1.0); MONOCYTES % (AUTO) 10.5 % (2.0-9.0); NEUTROPHILS # (AUTO) 4.6 K/uL (1.8-7.7); NEUTROPHILS % (AUTO) 58.3 % (40.0-70.0); PLATELET COUNT (AUTO) 175 K/uL (150-450); RED BLOOD CELL COUNT(AUTO) 4.04 MIL/uL (4.50-5.90); RED CELL DISTRIBUTION WIDTH 13.2 % (11.5-14.5)
[2019-03-10 19:19] LABS: ANION GAP 8 mmol/L (8-16); CALCIUM, TOTAL 9.2 mg/dL (8.8-10.5); CARBON DIOXIDE 28 mmol/L (22-29); CHLORIDE 99 mmol/L (98-107); CREATININE 0.99 mg/dL (0.60-1.30); GLOMERULAR FILTR. RATE CALC > 60 mL/min (>60); GLUCOSE,RANDOM 119 mg/dL (70-110); SODIUM SERUM 135 mmol/L (136-145); UREA NITROGEN, BLOOD 19 mg/dL (7-18)
[2019-03-10 19:24] LABS: ALANINE AMINOTRANSFERASE 7 U/L (12-78); ALBUMIN 3.9 g/dL (3.4-5.0); ALKALINE PHOSPHATASE 45 U/L (46-116); ASPARTATE AMINOTRANSFERASE 14 U/L (15-37); BILIRUBIN,TOTAL 0.5 mg/dL (0.1-1.0); PROTHROMBIN TIME 10.5 SEC (9.4-11.6); TOTAL PROTEIN, SERUM 7.5 g/dL (6.4-8.2)
[2019-03-10] MEDS ORDERED: SODIUM CHLORIDE 0.9% 1,000 ML IV ONE (19:45)
[2019-03-10] MEDS ORDERED: OXYGEN THERAPY IH SCH (20:00)
[2019-03-10 20:16] LABS: APPEARANCE,URINE CLEAR (CLEAR); BILIRUBIN,URINE NEGATIVE (NEGATIVE); GLUCOSE, URINE (UA) NEGATIVE (NEGATIVE); KETONES,URINE TRACE mg/dL (NEGATIVE); LEUKOCYTE ESTERASE ,URINE NEGATIVE (NEGATIVE); NITRATE,URINE NEGATIVE (NEGATIVE); OCCULT BLOOD,URINE NEGATIVE (NEGATIVE); PROTEIN,URINE TRACE (NEGATIVE)
[2019-03-10 20:21] LABS: AMPHET/METH SCREEN,URINE NEGATIVE (NEGATIVE); BARBITURATE SCREEN, URINE NEGATIVE (NEGATIVE); BENZODIAZEPINES SCREEN,URINE NEGATIVE (NEGATIVE); CANNABINOID SCREEN,URINE NEGATIVE (NEGATIVE); COCAINE SCREEN,URINE NEGATIVE (NEGATIVE); METHADONE SCREEN, URINE NEGATIVE (NEGATIVE); OPIATE SCREEN,URINE NEGATIVE (NEGATIVE); PHENCYCLIDINE SCREEN,URINE NEGATIVE (NEGATIVE)
[2019-03-10 20:52] LABS: BACTERIA,URINE Rare /HPF (None Seen); RBC,URINE None Seen /HPF (0-2); WBC,URINE None Seen /HPF (0-5)
[2019-03-10 20:53] LABS: CALCIUM OXALATE CRYSTALS,UR Few /LPF (None Seen); SQUAMOUS EPITHELIAL CELL,UR Rare /LPF (None Seen)
[2019-03-10] MEDS ORDERED: ACETAMINOPHEN 325 MG TABLET PO PRN (22:15)
[2019-03-10] MEDS ORDERED: HYDROCODONE/ACETAMINOPHEN 5-325 MG TABLET PO PRN (22:15)
[2019-03-10] MEDS ORDERED: BISACODYL 10 MG RECTAL RECTAL SUPPOSITORY PR PRN (22:15)
[2019-03-10] MEDS ORDERED: MORPHINE SULFATE 2 MG/ML SYRINGE IVP PRN (22:15)
[2019-03-10] MEDS ORDERED: ZOLPIDEM TARTRATE 5 MG TABLET PO PRN (22:15)
[2019-03-10] MEDS ORDERED: MAGNESIUM HYDROXIDE SUSPENSION 30 ML UDCUP PO PRN (22:15)
[2019-03-10] MEDS ORDERED: ONDANSETRON HCL 4 MG/2 ML VIAL IVP PRN (22:15)
[2019-03-11] VITALS (8 sets, daily range): BP systolic 132–183; BP diastolic 72–96
[2019-03-11 07:29] LABS: BASOPHILS % (AUTO) 0.8 % (0.0-2.0); EOSINOPHILS % (AUTO) 9.2 % (1.0-6.0); HEMATOCRIT 34.3 % (41-53); HEMOGLOBIN 11.6 g/dL (13.5-17.5); LYMPHOCYTES # (AUTO) 1.7 K/uL (1.0-4.8); LYMPHOCYTES % (AUTO) 21.9 % (22.0-44.0); MEAN CORPUSCULAR HEMOGLOBIN 31.9 pg (26.0-34.0); MEAN CORPUSCULAR VOLUME 94 fL (80-100); MONOCYTES # (AUTO) 0.7 K/uL (0.1-1.0); MONOCYTES % (AUTO) 8.8 % (2.0-9.0); NEUTROPHILS # (AUTO) 4.6 K/uL (1.8-7.7); NEUTROPHILS % (AUTO) 59.3 % (40.0-70.0); PLATELET COUNT (AUTO) 172 K/uL (150-450); RED BLOOD CELL COUNT(AUTO) 3.65 MIL/uL (4.50-5.90); RED CELL DISTRIBUTION WIDTH 13.3 % (11.5-14.5)
[2019-03-11 07:37] LABS: ANION GAP 7 mmol/L (8-16); CALCIUM, TOTAL 8.6 mg/dL (8.8-10.5); CARBON DIOXIDE 29 mmol/L (22-29); CHLORIDE 100 mmol/L (98-107); CREATININE 0.88 mg/dL (0.60-1.30); GLUCOSE,RANDOM 112 mg/dL (70-110); POTASSIUM 3.7 mmol/L (3.5-5.1); SODIUM SERUM 136 mmol/L (136-145); UREA NITROGEN, BLOOD 13 mg/dL (7-18)
[2019-03-11 07:38] LABS: GLOMERULAR FILTR. RATE CALC > 60 mL/min (>60)
[2019-03-11] MEDS ORDERED: MISC MED-CONVERTED FROM AMBULATORY (Sitagliptin Phos/Metformin HCl (Janumet 50-1,000 mg Ta PO SCH (08:00)
[2019-03-11] MEDS: MetFORMIN HCL 500 MG TABLET PO SCH ×2 (10:33→18:02)
[2019-03-11] MEDS: DOCUSATE SODIUM 100 MG CAPSULE PO SCH ×2 (10:33→22:01)
[2019-03-11] MEDS: OMEGA-3/DHA/EPA/FISH OIL 1,000 MG CAPSULE PO SCH (10:33)
[2019-03-11] MEDS: ASPIRIN/DIPYRIDAMOLE ER 25/200 MG ER CAPSULE PO SCH ×2 (10:34→22:01)
[2019-03-11] MEDS: CARBIDOPA/LEVODOPA 25-100 MG TABLET PO SCH ×4 (10:34→22:02)
[2019-03-11] MEDS: SitaGLIPtin PHOSPHATE 50 MG TABLET PO SCH ×2 (10:34→18:02)
[2019-03-11] MEDS: PANTOPRAZOLE SODIUM 40 MG DR TABLET PO SCH (10:34)
[2019-03-11] MEDS: LevETIRAcetam 250 MG TABLET PO SCH ×2 (12:57→22:02)
[2019-03-11] MEDS: TAMSULOSIN HCL 0.4 MG CAPSULE PO SCH (22:02)
[2019-03-11] MEDS: SIMVASTATIN 10 MG TABLET PO SCH (22:03)
[2019-03-12 03:55] VITALS: BP 151/78
[2019-03-12 06:48] LABS: BASOPHILS % (AUTO) 0.6 % (0.0-2.0); EOSINOPHILS % (AUTO) 5.2 % (1.0-6.0); HEMATOCRIT 36.5 % (41-53); HEMOGLOBIN 12.4 g/dL (13.5-17.5); LYMPHOCYTES # (AUTO) 1.4 K/uL (1.0-4.8); MEAN CORPUSCULAR HEMOGLOBIN 31.8 pg (26.0-34.0); MEAN CORPUSCULAR HGB CONC 33.8 G/dL (31.0-37.0); MEAN CORPUSCULAR VOLUME 94 fL (80-100); MONOCYTES # (AUTO) 0.7 K/uL (0.1-1.0); MONOCYTES % (AUTO) 8.2 % (2.0-9.0); PLATELET COUNT (AUTO) 159 K/uL (150-450); RED BLOOD CELL COUNT(AUTO) 3.88 MIL/uL (4.50-5.90); RED CELL DISTRIBUTION WIDTH 13.6 % (11.5-14.5)
[2019-03-12 06:59] LABS: ANION GAP 9 mmol/L (8-16); CALCIUM, TOTAL 9.2 mg/dL (8.8-10.5); CARBON DIOXIDE 28 mmol/L (22-29); CHLORIDE 101 mmol/L (98-107); CHOL/HDL RATIO 3.5 (4.2-7.3); CHOLESTEROL 159 mg/dL (131-200); GLUCOSE,RANDOM 129 mg/dL (70-110); HDL CHOLESTEROL 46 mg/dL (40-60); LDL CHOL (CALC.) 93 mg/dL (0-130); POTASSIUM 3.9 mmol/L (3.5-5.1); SODIUM SERUM 138 mmol/L (136-145); TRIGLYCERIDES 101 mg/dL (15-150); UREA NITROGEN, BLOOD 17 mg/dL (7-18)
[2019-03-12 07:02] LABS: GLOMERULAR FILTR. RATE CALC > 60 mL/min (>60)
[2019-03-12 07:37] VITALS: BP 142/70
[2019-03-12] MEDS: SitaGLIPtin PHOSPHATE 50 MG TABLET PO SCH ×2 (08:00→17:04)
[2019-03-12] MEDS: MetFORMIN HCL 500 MG TABLET PO SCH ×2 (08:00→17:04)
[2019-03-12] MEDS: OMEGA-3/DHA/EPA/FISH OIL 1,000 MG CAPSULE PO SCH (09:00)
[2019-03-12] MEDS: DOCUSATE SODIUM 100 MG CAPSULE PO SCH ×2 (09:00→20:29)
[2019-03-12] MEDS: ASPIRIN/DIPYRIDAMOLE ER 25/200 MG ER CAPSULE PO SCH ×2 (10:00→20:29)
[2019-03-12] MEDS: LevETIRAcetam 250 MG TABLET PO SCH ×2 (10:01→20:29)
[2019-03-12] MEDS: CARBIDOPA/LEVODOPA 25-100 MG TABLET PO SCH ×4 (10:01→20:28)
[2019-03-12] MEDS: PANTOPRAZOLE SODIUM 40 MG DR TABLET PO SCH (10:01)
[2019-03-12 11:08] VITALS: BP 151/87
[2019-03-12 15:39] VITALS: BP 142/73
[2019-03-12 19:59] VITALS: BP 120/57
[2019-03-12] MEDS: SIMVASTATIN 10 MG TABLET PO SCH (20:28)
[2019-03-12] MEDS: TAMSULOSIN HCL 0.4 MG CAPSULE PO SCH (20:29)
[2019-03-13 00:46] VITALS: BP 131/72
[2019-03-13 03:30] VITALS: BP 128/68
[2019-03-13 06:09] LABS: EOSINOPHILS % (AUTO) 6.9 % (1.0-6.0); HEMATOCRIT 33.3 % (41-53); HEMOGLOBIN 11.2 g/dL (13.5-17.5); LYMPHOCYTES # (AUTO) 1.8 K/uL (1.0-4.8); LYMPHOCYTES % (AUTO) 26.8 % (22.0-44.0); MEAN CORPUSCULAR HEMOGLOBIN 31.6 pg (26.0-34.0); MEAN CORPUSCULAR HGB CONC 33.8 G/dL (31.0-37.0); MEAN CORPUSCULAR VOLUME 94 fL (80-100); MONOCYTES # (AUTO) 0.6 K/uL (0.1-1.0); MONOCYTES % (AUTO) 9.2 % (2.0-9.0); NEUTROPHILS # (AUTO) 3.7 K/uL (1.8-7.7); NEUTROPHILS % (AUTO) 56.1 % (40.0-70.0); PLATELET COUNT (AUTO) 152 K/uL (150-450); RED BLOOD CELL COUNT(AUTO) 3.56 MIL/uL (4.50-5.90); RED CELL DISTRIBUTION WIDTH 13.2 % (11.5-14.5)
[2019-03-13 06:19] LABS: ANION GAP 8 mmol/L (8-16); CALCIUM, TOTAL 9.1 mg/dL (8.8-10.5); CARBON DIOXIDE 29 mmol/L (22-29); CHLORIDE 101 mmol/L (98-107); CREATININE 0.92 mg/dL (0.60-1.30); GLUCOSE,RANDOM 109 mg/dL (70-110); POTASSIUM 3.7 mmol/L (3.5-5.1); SODIUM SERUM 138 mmol/L (136-145); UREA NITROGEN, BLOOD 20 mg/dL (7-18)
[2019-03-13 06:24] LABS: GLOMERULAR FILTR. RATE CALC > 60 mL/min (>60)
[2019-03-13 07:37] VITALS: BP 126/78
[2019-03-13] MEDS: SitaGLIPtin PHOSPHATE 50 MG TABLET PO SCH ×3 (08:00→18:18)
[2019-03-13] MEDS: MetFORMIN HCL 500 MG TABLET PO SCH ×3 (08:00→18:19)
[2019-03-13] MEDS: PANTOPRAZOLE SODIUM 40 MG DR TABLET PO SCH (09:00)
[2019-03-13] MEDS: ASPIRIN/DIPYRIDAMOLE ER 25/200 MG ER CAPSULE PO SCH ×2 (09:00→20:50)
[2019-03-13] MEDS: OMEGA-3/DHA/EPA/FISH OIL 1,000 MG CAPSULE PO SCH (09:00)
[2019-03-13] MEDS: CARBIDOPA/LEVODOPA 25-100 MG TABLET PO SCH ×4 (09:01→20:51)
[2019-03-13] MEDS: DOCUSATE SODIUM 100 MG CAPSULE PO SCH ×2 (09:02→20:50)
[2019-03-13] MEDS ORDERED: DEXTROSE 50%-WATER 25 GM/50 ML SYRINGE IVP PRN (11:15)
[2019-03-13 11:16] VITALS: BP 142/62
[2019-03-13 15:39] VITALS: BP 151/84
[2019-03-13 18:13] LABS: GLUCOMETER DEV NAME(LOC) 5S.2A; GLUCOSE,POINT OF CARE 119 MG/DL (70-110)
[2019-03-13 19:50] LABS: GLUCOMETER DEV NAME(LOC) 5N.2; GLUCOSE,POINT OF CARE 153 MG/DL (70-110)
[2019-03-13] MEDS: TAMSULOSIN HCL 0.4 MG CAPSULE PO SCH (20:50)
[2019-03-13] MEDS: SIMVASTATIN 10 MG TABLET PO SCH (20:50)
[2019-03-13] MEDS: INSULIN LISPRO 100 UNITS/ML SQ PRN (21:13)
[2019-03-13 21:48] VITALS: BP 138/73
[2019-03-14 01:39] VITALS: BP 119/57
[2019-03-14 05:18] VITALS: BP 118/66
[2019-03-14] MEDS: INSULIN LISPRO 100 UNITS/ML SQ PRN (06:44)
[2019-03-14] MEDS: PANTOPRAZOLE SODIUM 40 MG DR TABLET PO SCH (08:16)
[2019-03-14] MEDS: DOCUSATE SODIUM 100 MG CAPSULE PO SCH (08:16)
[2019-03-14] MEDS: OMEGA-3/DHA/EPA/FISH OIL 1,000 MG CAPSULE PO SCH (08:17)
[2019-03-14] MEDS: ASPIRIN/DIPYRIDAMOLE ER 25/200 MG ER CAPSULE PO SCH (08:17)
[2019-03-14] MEDS: MetFORMIN HCL 500 MG TABLET PO SCH (08:17)
[2019-03-14] MEDS: CARBIDOPA/LEVODOPA 25-100 MG TABLET PO SCH ×2 (08:17→12:20)
[2019-03-14] MEDS: SitaGLIPtin PHOSPHATE 50 MG TABLET PO SCH (08:18)
[2019-03-14 08:19] VITALS: BP 125/49
[2019-03-14 11:26] VITALS: BP 104/56
[2019-03-14 13:37] LABS: GLUCOMETER DEV NAME(LOC) 5N.1; GLUCOSE,POINT OF CARE 127 MG/DL (70-110)
[2019-03-14 13:38] LABS: GLUCOMETER DEV NAME(LOC) 5N.2; GLUCOSE,POINT OF CARE 138 MG/DL (70-110)
[2019-03-14 13:50] LABS: GLUCOMETER DEV NAME(LOC) 5N.1; GLUCOSE,POINT OF CARE 134 MG/DL (70-110)
[2019-03-14 15:23] VITALS: BP 123/65
== END 2019-03-14 16:10 | disposition home or self-care (01) | DRG 69 ==
LOC: EMS 18:53 → 5S 21:33
PROVIDERS: ADMIT Internal Medicine; ATTEND Internal Medicine
DX: G45.9 Transient cerebral ischemic attack, unspecified (principal); E44.0 Moderate protein-calorie malnutrition; E87.1 Hypo-osmolality and hyponatremia; E78.5 Hyperlipidemia, unspecified; D64.9 Anemia, unspecified; E11.9 Type 2 diabetes mellitus without complications; R79.89 Other specified abnormal findings of blood chemistry; F01.50 Vascular dementia, unspecified severity, without behavioral disturbance, psychotic disturbance, mood disturbance, and anxiety; G20 Parkinson's disease; I10 Essential (primary) hypertension; N40.0 Benign prostatic hyperplasia without lower urinary tract symptoms; Z86.73 Personal history of transient ischemic attack (TIA), and cerebral infarction without residual deficits; Z87.440 Personal history of urinary (tract) infections; Z68.20 Body mass index [BMI] 20.0-20.9, adult; Z88.0 Allergy status to penicillin; Z79.899 Other long term (current) drug therapy
CPT/HCPCS: 70496; 70551; 83605; 84439; 84443; 86850; 86900; 86901; 87040; 93005; 95816; 97110; 97116; 97162; 97166; 97535; G0378; J7030; J7050

== ENCOUNTER 2019-06-02 16:12 | Inpatient (IN) | payer MEDICARE, OTHER ==
[~2019-06-02] VITALS: Ht 170.2 cm; Wt 59.1 kg
[~2019-06-02 16:12] MED LIST changes: +ASPI1CPM6 PO; -ASPI81 PO; -MIRT15 PO; -SIMV-259 PO; +SIMV5TAB58 PO
[2019-06-02] MEDS ORDERED: SODIUM CHLORIDE 0.9% 100 ML ONE (16:24)
[2019-06-02] MEDS ORDERED: IOVERSOL 350 MG/ML 100 ML VIAL ONE (16:25)
[2019-06-02 16:34] LABS: BASOPHILS % (AUTO) 0.5 % (0.0-2.0); EOSINOPHILS % (AUTO) 2.1 % (1.0-6.0); HEMATOCRIT 32.9 % (41-53); MEAN CORPUSCULAR HEMOGLOBIN 31.6 pg (26.0-34.0); MEAN CORPUSCULAR HGB CONC 33.3 G/dL (31.0-37.0); MEAN CORPUSCULAR VOLUME 95 fL (80-100); MONOCYTES # (AUTO) 0.9 K/uL (0.1-1.0); MONOCYTES % (AUTO) 10.6 % (2.0-9.0); NEUTROPHILS # (AUTO) 5.2 K/uL (1.8-7.7); NEUTROPHILS % (AUTO) 62.8 % (40.0-70.0); PLATELET COUNT (AUTO) 187 K/uL (150-450); RED BLOOD CELL COUNT(AUTO) 3.47 MIL/uL (4.50-5.90); RED CELL DISTRIBUTION WIDTH 15.1 % (11.5-14.5)
[2019-06-02 16:46] LABS: PROTHROMBIN TIME 10.4 SEC (9.4-11.6)
[2019-06-02 16:48] LABS: ANION GAP 11 mmol/L (8-16); CALCIUM, TOTAL 9.3 mg/dL (8.8-10.5); CARBON DIOXIDE 26 mmol/L (22-29); CHLORIDE 102 mmol/L (98-107); CREATININE 1.05 mg/dL (0.60-1.30); GLUCOSE,RANDOM 93 mg/dL (70-110); POTASSIUM 4.3 mmol/L (3.5-5.1); SODIUM SERUM 139 mmol/L (136-145); UREA NITROGEN, BLOOD 22 mg/dL (7-18)
[2019-06-02 16:49] LABS: GLOMERULAR FILTR. RATE CALC > 60 mL/min (>60)
[2019-06-02 16:54] LABS: ALANINE AMINOTRANSFERASE 11 U/L (12-78); ALBUMIN 3.4 g/dL (3.4-5.0); ALKALINE PHOSPHATASE 49 U/L (46-116); ASPARTATE AMINOTRANSFERASE 16 U/L (15-37); BILIRUBIN,TOTAL 0.5 mg/dL (0.1-1.0); TOTAL PROTEIN, SERUM 6.8 g/dL (6.4-8.2)
[2019-06-02] MEDS ORDERED: ONDANSETRON HCL 4 MG/2 ML VIAL IVP PRN ×2 (17:45→22:30)
[2019-06-02] MEDS ORDERED: ACETAMINOPHEN 325 MG TABLET PO PRN ×2 (17:45→22:30)
[2019-06-02 22:14] VITALS: BP 189/100
[2019-06-02] MEDS ORDERED: IPRATROPIUM BROMIDE 0.5 MG/2.5 ML NEB SOLUTION NEB PRN (22:30)
[2019-06-02] MEDS ORDERED: MAGNESIUM HYDROXIDE SUSPENSION 30 ML UDCUP PO PRN (22:30)
[2019-06-02] MEDS ORDERED: BISACODYL 10 MG RECTAL RECTAL SUPPOSITORY PR PRN (22:30)
[2019-06-02] MEDS ORDERED: MORPHINE SULFATE 2 MG/ML SYRINGE IVP PRN (22:30)
[2019-06-02] MEDS ORDERED: ZOLPIDEM TARTRATE 5 MG TABLET PO PRN (22:30)
[2019-06-02] MEDS ORDERED: ALBUTEROL SULFATE 2.5 MG/0.5 ML NEB SOLUTION NEB PRN (22:30)
[2019-06-02 23:14] VITALS: BP 146/89
[2019-06-02 23:44] VITALS: BP 146/89
[2019-06-03] MEDS: HEPARIN SODIUM,PORCINE 5,000 UNITS/ML VIAL SQ SCH ×3 (00:52→15:31)
[2019-06-03 04:28] VITALS: BP 166/94
[2019-06-03 08:03] VITALS: BP 153/99
[2019-06-03] MEDS: CARBIDOPA/LEVODOPA 25-100 MG TABLET PO SCH ×4 (08:35→21:00)
[2019-06-03] MEDS: OMEGA-3/DHA/EPA/FISH OIL 1,000 MG CAPSULE PO SCH (08:35)
[2019-06-03] MEDS: DOCUSATE SODIUM 100 MG CAPSULE PO SCH ×2 (08:35→21:00)
[2019-06-03] MEDS: ASPIRIN/DIPYRIDAMOLE ER 25/200 MG ER CAPSULE PO SCH ×2 (08:35→21:00)
[2019-06-03] MEDS: HYDROCODONE/ACETAMINOPHEN 5-325 MG TABLET PO PRN ×2 (08:36→12:48)
[2019-06-03 12:36] VITALS: BP 156/73
[2019-06-03] MEDS ORDERED: NIFEdipine 30 MG ER TABLET PO ONE (14:30)
[2019-06-03 15:55] VITALS: BP 136/71
[2019-06-03 19:55] VITALS: BP 154/87
[2019-06-03] MEDS: SIMVASTATIN 20 MG TABLET PO SCH (21:00)
[2019-06-03] MEDS: LATANOPROST 0.005% 2.5 ML OPHTHALMIC SOLUTION OU SCH (21:00)
[2019-06-03] MEDS: FAMOTIDINE 20 MG TABLET PO SCH (21:00)
[2019-06-03] MEDS: TAMSULOSIN HCL 0.4 MG CAPSULE PO SCH (21:00)
[2019-06-03 23:42] VITALS: BP 148/94
[2019-06-04] VITALS (7 sets, daily range): BP systolic 145–159; BP diastolic 78–95
[2019-06-04] MEDS: DOCUSATE SODIUM 100 MG CAPSULE PO SCH ×2 (08:10→20:37)
[2019-06-04] MEDS: HEPARIN SODIUM,PORCINE 5,000 UNITS/ML VIAL SQ SCH ×3 (08:10→16:39)
[2019-06-04] MEDS: ASPIRIN/DIPYRIDAMOLE ER 25/200 MG ER CAPSULE PO SCH ×2 (08:10→20:37)
[2019-06-04] MEDS: HYDROCODONE/ACETAMINOPHEN 5-325 MG TABLET PO PRN ×2 (08:11→12:36)
[2019-06-04] MEDS: NIFEdipine 30 MG ER TABLET PO SCH (08:11)
[2019-06-04] MEDS: OMEGA-3/DHA/EPA/FISH OIL 1,000 MG CAPSULE PO SCH (08:11)
[2019-06-04] MEDS: CARBIDOPA/LEVODOPA 25-100 MG TABLET PO SCH ×4 (08:11→20:37)
[2019-06-04 09:38] LABS: EOSINOPHILS % (AUTO) 2.7 % (1.0-6.0); HEMATOCRIT 36.8 % (41-53); HEMOGLOBIN 12.1 g/dL (13.5-17.5); LYMPHOCYTES # (AUTO) 1.7 K/uL (1.0-4.8); LYMPHOCYTES % (AUTO) 23.1 % (22.0-44.0); MEAN CORPUSCULAR HEMOGLOBIN 31.1 pg (26.0-34.0); MEAN CORPUSCULAR HGB CONC 32.8 G/dL (31.0-37.0); MEAN CORPUSCULAR VOLUME 95 fL (80-100); MONOCYTES # (AUTO) 0.8 K/uL (0.1-1.0); MONOCYTES % (AUTO) 10.8 % (2.0-9.0); NEUTROPHILS # (AUTO) 4.5 K/uL (1.8-7.7); NEUTROPHILS % (AUTO) 62.4 % (40.0-70.0); PLATELET COUNT (AUTO) 195 K/uL (150-450); RED BLOOD CELL COUNT(AUTO) 3.88 MIL/uL (4.50-5.90); RED CELL DISTRIBUTION WIDTH 15.4 % (11.5-14.5)
[2019-06-04 09:56] LABS: ALANINE AMINOTRANSFERASE 20 U/L (12-78); ALBUMIN 3.6 g/dL (3.4-5.0); ALKALINE PHOSPHATASE 52 U/L (46-116); ANION GAP 7 mmol/L (8-16); ASPARTATE AMINOTRANSFERASE 28 U/L (15-37); BILIRUBIN,TOTAL 0.7 mg/dL (0.1-1.0); CALCIUM, TOTAL 9.5 mg/dL (8.8-10.5); CARBON DIOXIDE 31 mmol/L (22-29); CHLORIDE 99 mmol/L (98-107); CREATININE 0.91 mg/dL (0.60-1.30); GLUCOSE,RANDOM 115 mg/dL (70-110); POTASSIUM 3.6 mmol/L (3.5-5.1); SODIUM SERUM 137 mmol/L (136-145); TOTAL PROTEIN, SERUM 7.1 g/dL (6.4-8.2)
[2019-06-04 09:57] LABS: GLOMERULAR FILTR. RATE CALC > 60 mL/min (>60)
[2019-06-04 10:01] LABS: UREA NITROGEN, BLOOD 21 mg/dL (7-18)
[2019-06-04 13:23] LABS: CHOL/HDL RATIO 3.5 (4.2-7.3); CHOLESTEROL 176 mg/dL (131-200); HDL CHOLESTEROL 50 mg/dL (40-60); LDL CHOL (CALC.) 110 mg/dL (0-130); TRIGLYCERIDES 81 mg/dL (15-150)
[2019-06-04] MEDS: LATANOPROST 0.005% 2.5 ML OPHTHALMIC SOLUTION OU SCH (20:36)
[2019-06-04] MEDS: SIMVASTATIN 20 MG TABLET PO SCH (20:37)
[2019-06-04] MEDS: TAMSULOSIN HCL 0.4 MG CAPSULE PO SCH (20:37)
[2019-06-04] MEDS: FAMOTIDINE 20 MG TABLET PO SCH (20:37)
[2019-06-05] MEDS: HEPARIN SODIUM,PORCINE 5,000 UNITS/ML VIAL SQ SCH ×4 (00:08→23:57)
[2019-06-05 04:38] VITALS: BP 151/79
[2019-06-05 07:17] VITALS: BP 139/78
[2019-06-05] MEDS: NIFEdipine 30 MG ER TABLET PO SCH (09:21)
[2019-06-05] MEDS: OMEGA-3/DHA/EPA/FISH OIL 1,000 MG CAPSULE PO SCH (09:21)
[2019-06-05] MEDS: ASPIRIN/DIPYRIDAMOLE ER 25/200 MG ER CAPSULE PO SCH ×2 (09:22→21:17)
[2019-06-05] MEDS: DOCUSATE SODIUM 100 MG CAPSULE PO SCH ×2 (09:22→21:17)
[2019-06-05] MEDS: CARBIDOPA/LEVODOPA 25-100 MG TABLET PO SCH ×4 (09:22→21:17)
[2019-06-05 11:49] VITALS: BP 130/73
[2019-06-05 12:23] LABS: BASOPHILS % (AUTO) 0.9 % (0.0-2.0); EOSINOPHILS % (AUTO) 0.7 % (1.0-6.0); HEMATOCRIT 34.1 % (41-53); HEMOGLOBIN 11.5 g/dL (13.5-17.5); LYMPHOCYTES # (AUTO) 1.5 K/uL (1.0-4.8); LYMPHOCYTES % (AUTO) 21.4 % (22.0-44.0); MEAN CORPUSCULAR HEMOGLOBIN 31.9 pg (26.0-34.0); MEAN CORPUSCULAR HGB CONC 33.6 G/dL (31.0-37.0); MEAN CORPUSCULAR VOLUME 95 fL (80-100); MONOCYTES # (AUTO) 0.6 K/uL (0.1-1.0); MONOCYTES % (AUTO) 8.2 % (2.0-9.0); NEUTROPHILS % (AUTO) 68.8 % (40.0-70.0); PLATELET COUNT (AUTO) 187 K/uL (150-450); RED BLOOD CELL COUNT(AUTO) 3.59 MIL/uL (4.50-5.90); RED CELL DISTRIBUTION WIDTH 15.6 % (11.5-14.5)
[2019-06-05 12:40] LABS: CALCIUM, TOTAL 9.2 mg/dL (8.8-10.5); CREATININE 1.16 mg/dL (0.60-1.30); POTASSIUM 3.8 mmol/L (3.5-5.1)
[2019-06-05 12:48] LABS: ALBUMIN 3.5 g/dL (3.4-5.0); BILIRUBIN,TOTAL 0.7 mg/dL (0.1-1.0); TOTAL PROTEIN, SERUM 6.7 g/dL (6.4-8.2)
[2019-06-05] MEDS ORDERED: HEPA500018 SQ (14:36)
[2019-06-05] MEDS ORDERED: NIFE30TA5 PO (14:37)
[2019-06-05] MEDS ORDERED: ACET-2247 PO (14:38)
[2019-06-05 15:44] VITALS: BP 143/84
[2019-06-05 16:23] LABS: HEMOGLOBIN A1C 5.6 % (4.5-6.2)
[2019-06-05 16:25] LABS: THYROID STIMULATING HORMONE 1.14 uIU/mL (0.36-3.74)
[2019-06-05 19:49] VITALS: BP 145/78
[2019-06-05] MEDS: FAMOTIDINE 20 MG TABLET PO SCH (21:17)
[2019-06-05] MEDS: SIMVASTATIN 20 MG TABLET PO SCH (21:17)
[2019-06-05] MEDS: TAMSULOSIN HCL 0.4 MG CAPSULE PO SCH (21:18)
[2019-06-05] MEDS: LATANOPROST 0.005% 2.5 ML OPHTHALMIC SOLUTION OU SCH (21:19)
[2019-06-05 23:30] VITALS: BP 138/75
[2019-06-06 08:30] VITALS: BP 150/68
[2019-06-06] MEDS: OMEGA-3/DHA/EPA/FISH OIL 1,000 MG CAPSULE PO SCH (09:00)
[2019-06-06] MEDS: DOCUSATE SODIUM 100 MG CAPSULE PO SCH ×2 (09:00→20:22)
[2019-06-06] MEDS: ASPIRIN/DIPYRIDAMOLE ER 25/200 MG ER CAPSULE PO SCH ×2 (09:00→20:21)
[2019-06-06] MEDS: CARBIDOPA/LEVODOPA 25-100 MG TABLET PO SCH ×4 (09:00→20:22)
[2019-06-06] MEDS: NIFEdipine 30 MG ER TABLET PO SCH (09:13)
[2019-06-06] MEDS: HEPARIN SODIUM,PORCINE 5,000 UNITS/ML VIAL SQ SCH ×3 (09:21→23:53)
[2019-06-06 12:00] VITALS: BP 149/67
[2019-06-06 15:31] VITALS: BP 132/83
[2019-06-06 19:35] VITALS: BP 129/67
[2019-06-06] MEDS: FAMOTIDINE 20 MG TABLET PO SCH (20:22)
[2019-06-06] MEDS: LATANOPROST 0.005% 2.5 ML OPHTHALMIC SOLUTION OU SCH (20:22)
[2019-06-06] MEDS: TAMSULOSIN HCL 0.4 MG CAPSULE PO SCH (20:22)
[2019-06-06] MEDS: SIMVASTATIN 20 MG TABLET PO SCH (20:23)
[2019-06-06 23:42] VITALS: BP 139/73
[2019-06-07 03:17] VITALS: BP 133/71
[2019-06-07 06:35] LABS: BASOPHILS % (AUTO) 1.1 % (0.0-2.0); EOSINOPHILS % (AUTO) 1.6 % (1.0-6.0); HEMATOCRIT 32.4 % (41-53); HEMOGLOBIN 11.1 g/dL (13.5-17.5); LYMPHOCYTES # (AUTO) 2.1 K/uL (1.0-4.8); LYMPHOCYTES % (AUTO) 30.3 % (22.0-44.0); MEAN CORPUSCULAR HEMOGLOBIN 32.5 pg (26.0-34.0); MEAN CORPUSCULAR HGB CONC 34.3 G/dL (31.0-37.0); MEAN CORPUSCULAR VOLUME 95 fL (80-100); MONOCYTES # (AUTO) 0.8 K/uL (0.1-1.0); MONOCYTES % (AUTO) 11.8 % (2.0-9.0); NEUTROPHILS # (AUTO) 3.9 K/uL (1.8-7.7); NEUTROPHILS % (AUTO) 55.2 % (40.0-70.0); PLATELET COUNT (AUTO) 199 K/uL (150-450); RED BLOOD CELL COUNT(AUTO) 3.42 MIL/uL (4.50-5.90); RED CELL DISTRIBUTION WIDTH 16.2 % (11.5-14.5)
[2019-06-07 06:47] LABS: ANION GAP 7 mmol/L (8-16); CALCIUM, TOTAL 9.2 mg/dL (8.8-10.5); CARBON DIOXIDE 29 mmol/L (22-29); CHLORIDE 101 mmol/L (98-107); CREATININE 1.11 mg/dL (0.60-1.30); GLUCOSE,RANDOM 104 mg/dL (70-110); POTASSIUM 3.6 mmol/L (3.5-5.1); SODIUM SERUM 137 mmol/L (136-145); UREA NITROGEN, BLOOD 25 mg/dL (7-18)
[2019-06-07 07:03] LABS: GLOMERULAR FILTR. RATE CALC > 60 mL/min (>60)
[2019-06-07] MEDS: HEPARIN SODIUM,PORCINE 5,000 UNITS/ML VIAL SQ SCH ×3 (08:00→16:00)
[2019-06-07] MEDS: DOCUSATE SODIUM 100 MG CAPSULE PO SCH (09:00)
[2019-06-07] MEDS: OMEGA-3/DHA/EPA/FISH OIL 1,000 MG CAPSULE PO SCH (09:00)
[2019-06-07] MEDS: ASPIRIN/DIPYRIDAMOLE ER 25/200 MG ER CAPSULE PO SCH (11:12)
[2019-06-07] MEDS: CARBIDOPA/LEVODOPA 25-100 MG TABLET PO SCH ×3 (12:37→16:00)
[2019-06-07] MEDS: HYDROCODONE/ACETAMINOPHEN 5-325 MG TABLET PO PRN (12:37)
[2019-06-07] MEDS: NIFEdipine 30 MG ER TABLET PO SCH (12:38)
[2019-06-07 15:08] VITALS: BP 147/79
== END 2019-06-07 19:30 | DRG 71 ==
LOC: EMS 16:13 → 5S 19:00
PROVIDERS: ADMIT Hospitalist; ATTEND Hospitalist
DX: G93.40 Encephalopathy, unspecified (principal); R47.01 Aphasia; N40.0 Benign prostatic hyperplasia without lower urinary tract symptoms; E11.9 Type 2 diabetes mellitus without complications; G20 Parkinson's disease; H40.9 Unspecified glaucoma; E78.5 Hyperlipidemia, unspecified; I10 Essential (primary) hypertension; Z88.0 Allergy status to penicillin; Z79.82 Long term (current) use of aspirin; Z79.899 Other long term (current) drug therapy; Z83.3 Family history of diabetes mellitus; Z82.49 Family history of ischemic heart disease and other diseases of the circulatory system
CPT/HCPCS: 70450; 70496; 83036; 84443; 92521; 93005; 93306; 93880; 97112; 97116; 97162; 97166; 97530; 97535; 99291; J1644; J7050